=== PATIENT | female | born 1945 | race African-American/Black ===

== ENCOUNTER → 2017-02-15 | Outpatient (CLI) | payer MEDICARE, OTHER ==
--- NOTE | 2017-02-15 09:42 | XR ---
EXAMINATION TYPE: XR chest 2V DATE OF EXAM: 02/15/2017 COMPARISON: 11/29/2014 HISTORY: Shortness of breath TECHNIQUE: Frontal and lateral views of the chest are obtained. FINDINGS: There is no focal air space opacity, pleural effusion, or pneumothorax seen. The cardiac silhouette size is within normal limits. The osseous structures are intact. Mild degenerative hilario es are seen of the thoracic spine as well as an exaggerated kyphosis is noted on the prior examinatio n. IMPRESSION: No acute cardiopulmonary process.
== END ==
LOC: RADXRMAIN 09:08
PROVIDERS: ATTEND Internal Medicine
DX: R06.02 Shortness of breath (principal)
CPT/HCPCS: 71020

== ENCOUNTER → 2017-06-11 | Outpatient (CLI) | payer MEDICARE, OTHER ==
--- NOTE | 2017-06-14 11:45 | MM ---
Reason for exam: screening (asymptomatic). Last mammogram was performed 2 years and 6 months ago. History: Patient is postmenopausal. Physical Findings: A clinical breast exam by your physician is recommended on an annual basis and results should be correlated with mammographic findings. MG 3D Screening Mammo W/Cad Bilateral CC and MLO view(s) were taken. Prior study comparison: November 29, 2014, bilateral MG screening mammo w CAD. October 24, 2012, bilateral digital screening mammo w/CAD. There are scattered fibroglandular densities. No suspicious abnormality. No significant changes when compared with prior studies. ASSESSMENT: Negative, BI-RAD 1 RECOMMENDATION: Routine screening mammogram of both breasts in 1 year.
== END | disposition home or self-care (01) ==
LOC: RADMAMWWP 14:55
PROVIDERS: ATTEND Internal Medicine
DX: Z12.31 Encounter for screening mammogram for malignant neoplasm of breast (principal)
CPT/HCPCS: 77063; 77067

== ENCOUNTER → 2018-03-31 | Outpatient (CLI) | payer MEDICARE, OTHER ==
--- NOTE | 2018-03-31 12:59 | XR ---
EXAMINATION TYPE: XR chest 2V DATE OF EXAM: 03/31/2018 COMPARISON: 02/15/2017 HISTORY: Surveillance. Annual exam. TECHNIQUE: Frontal and lateral views of the chest are obtained. FINDINGS: Right pleural thickening is present as seen on the prior. There is no focal air space opac ity, pleural effusion, or pneumothorax seen. The cardiac silhouette size is within normal limits. The osseous structures are intact. Mild multilevel degenerative changes of thoracic spine is again no kelvin with prominent thoracic kyphosis. IMPRESSION: No acute cardiopulmonary process.
== END ==
LOC: RADXRMAIN 12:19
PROVIDERS: ATTEND Internal Medicine
DX: Z11.1 Encounter for screening for respiratory tuberculosis (principal)
CPT/HCPCS: 71046

== ENCOUNTER 2018-05-20 20:13 | Emergency (ER) | payer MEDICARE, OTHER ==
[2018-05-20] MEDS ORDERED: ASPIRIN 81 MG PO STA (20:37)
[2018-05-20 20:55] VITALS: RESP 18
--- NOTE | 2018-05-20 21:04 | ED ---
General Adult HPI - General Chief complaint: Extremity Problem,Nontraumatic Stated complaint: lt arm pain Time Seen by Provider: 05/20/18 20:23 Source: patient, RN notes reviewed, old records reviewed Mode of arrival: ambulatory Limitations: no limitations - History of Present Illness Initial comments: Patient is a 72-year-old female presents emergency department today with chief complaint of onset of left arm pain and tingling from her mid arm shoulder and neck. Patient reports symptoms started around 2 this afternoon. 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 She has no significant past medical history of heart disease. She denies shortness of breath or chest pain. She initially thought her pain was related to arthritis. She is a nonsmoker. Ports that it feels like a dull ache within the arm. No change with range of motion. - Related Data Home Medications Medication Instructions Recorded Confirmed Esomeprazole Magnesium [NexIUM] 40 mg PO DAILY 02/21/14 05/20/18 HYDROcodone/APAP 10-325MG [[place] 1 tab PO QID PRN 05/20/18 05/20/18 10-325] Allergies Allergy/AdvReac Type Severity Reaction Status Date / Time Penicillins Allergy Intermediate Rash/Hives Verified 05/20/18 20:55 Review of Systems ROS Statement: Those systems with pertinent positive or pertinent negative responses have been documented in the HPI. ROS Other: All systems not noted in ROS Statement are negative. Past Medical History Past Medical History: Asthma, Chest Pain / Angina, Osteoarthritis (OA) Additional Past Medical History / Comment(s): oa L hip, diverticulosis, has "slight leaky heart valve" History of Any Multi-Drug Resistant Organisms: None Reported Past Surgical History: Hysterectomy Additional Past Surgical History / Comment(s): hysterectomy in her 30's. Past Anesthesia/Blood Transfusion Reactions: No Reported Reaction Past Psychological History: Anxiety Smoking Status: Former smoker Past Alcohol Use History: None Reported Past Drug Use History: None Reported - Past Family History Father Family Medical History: Cancer Additional Family Medical History / Comment(s): Father age 72 of colon CA. Mother Family Medical History: No Reported History Additional Family Medical History / Comment(s): Mother in her 70's after hip fx. General Exam - General Exam Comments Initial Comments: Well-appearing -[place] 72-year-old female. Limitations: no limitations General appearance: alert, in no apparent distress Head exam: Present: atraumatic, normocephalic, normal inspection Eye exam: Present: normal appearance, PERRL, EOMI. Absent: scleral icterus, conjunctival injection, periorbital swelling ENT exam: Present: normal exam, mucous membranes moist Neck exam: Present: normal inspection Respiratory exam: Present: normal lung sounds bilaterally. Absent: respiratory distress, wheezes, rales, rhonchi, stridor Cardiovascular Exam: Present: regular rate, normal rhythm, normal heart sounds. Absent: systolic murmur, diastolic murmur, rubs, gallop, clicks GI/Abdominal exam: Present: soft Extremities exam: Present: normal inspection, full ROM, normal capillary refill. Absent: tenderness, pedal edema, joint swelling, calf tenderness Back exam: Present: normal inspection Neurological exam: Present: alert, oriented X3, CN II-XII intact Psychiatric exam: Present: normal affect, normal mood Skin exam: Present: warm, dry, intact, normal color. Absent: rash Course Vital Signs 05/20/18 05/20/18 20:16 20:54 Temperature 98.1 F Pulse Rate 83 67 Respiratory 16 18 Rate Blood Pressure 160/97 143/81 O2 Sat by Pulse 100 100 Oximetry EKG Findings - EKG Comments: EKG Findings:: EKG performed at 2040 shows sinus rhythm with sinus arrhythmia. Ventricular rate of 68 beats per minute. Was 160 ms. QRS duration is 84 ms. QT QTc is 412/438 ms. No evidence of ST elevation or T-wave inversion. Medical Decision Making - Medical Decision Making Patient is a well-appearing 72-year-old [place] female who presents emergency department today with onset of left arm pain around 2 PM. She denies any associated chest pain shortness breath. She does state occasionally goes to the neck. She has normal pulse the arm. Full range of motion noted. No deformities. No trauma to cause pain. The arm. She states she felt like it was initially arthritis. I did discuss concern for cardiac etiology. We did do a cardiac workup. She has a normal EKG. Normal troponin. Chest x-ray was reviewed and negative for any acute process. Lab work was stable. She does report she had a stress test done approximately 2 years ago. At this time Patient was offered admission for further evaluation for cardiac origin of the arm pain. Patient states she feels more comfortable going home. She requests to be discharged. At this time I discussed treatment for a temperature medication if this is muscular skeletal nature. KODY has close follow-up with her primary care physician. I discussed strict return parameters. All questions were answered. - Lab Data Result diagrams: 05/20/18 20:35 05/20/18 20:35 Lab Results 05/20/18 05/20/18 05/20/18 Range/Units 20:35 20:35 20:35 WBC 4.5 (3.8-10.6) k/uL RBC 4.06 (3.80-5.40) m/uL Hgb 11.8 (11.4-16.0) gm/dL Hct 36.3 (34.0-46.0) % MCV 89.4 (80.0-100.0) fL MCH 29.1 (25.0-35.0) pg MCHC 32.5 (31.0-37.0) g/dL RDW 12.8 (11.5-15.5) % Plt Count 266 (150-450) k/uL Neutrophils % 42 % Lymphocytes % 41 % Monocytes % 7 % Eosinophils % 6 % Basophils % 1 % Neutrophils # 1.9 (1.3-7.7) k/uL Lymphocytes # 1.8 (1.0-4.8) k/uL Monocytes # 0.3 (0-1.0) k/uL Eosinophils # 0.3 (0-0.7) k/uL Basophils # 0.0 (0-0.2) k/uL PT (9.0-12.0) sec INR (<1.2) APTT (22.0-30.0) sec Sodium 141 (137-145) mmol/L Potassium 3.8 (3.5-5.1) mmol/L Chloride 108 H (98-107) mmol/L Carbon Dioxide 25 (22-30) mmol/L Anion Gap 8 mmol/L BUN 11 (7-17) mg/dL Creatinine 0.67 (0.52-1.04) mg/dL Est GFR (CKD-EPI)AfAm >90 (>60 ml/min/1.73 sqM) Est GFR (CKD-EPI)NonAf 87 (>60 ml/min/1.73 sqM) Glucose 112 H (74-99) mg/dL Calcium 9.7 (8.4-10.2) mg/dL Magnesium 1.9 (1.6-2.3) mg/dL Total Bilirubin 0.4 (0.2-1.3) mg/dL AST 23 (14-36) U/L ALT 15 (9-52) U/L Alkaline Phosphatase 52 (38-126) U/L Total Creatine Kinase 242 H (30-135) U/L CK-MB (CK-2) 2.7 H (0.0-2.4) ng/mL CK-MB (CK-2) Rel Index 1.1 Troponin I <0.012 (0.000-0.034) ng/mL Total Protein 7.2 (6.3-8.2) g/dL Albumin 3.8 (3.5-5.0) g/dL 05/20/18 Range/Units 20:35 WBC (3.8-10.6) k/uL RBC (3.80-5.40) m/uL Hgb (11.4-16.0) gm/dL Hct (34.0-46.0) % MCV (80.0-100.0) fL MCH (25.0-35.0) pg MCHC (31.0-37.0) g/dL RDW (11.5-15.5) % Plt Count (150-450) k/uL Neutrophils % % Lymphocytes % % Monocytes % % Eosinophils % % Basophils % % Neutrophils # (1.3-7.7) k/uL Lymphocytes # (1.0-4.8) k/uL Monocytes # (0-1.0) k/uL Eosinophils # (0-0.7) k/uL Basophils # (0-0.2) k/uL PT 10.0 (9.0-12.0) sec INR 0.9 (<1.2) APTT 26.7 (22.0-30.0) sec Sodium (137-145) mmol/L Potassium (3.5-5.1) mmol/L Chloride (98-107) mmol/L Carbon Dioxide (22-30) mmol/L Anion Gap mmol/L BUN (7-17) mg/dL Creatinine (0.52-1.04) mg/dL Est GFR (CKD-EPI)AfAm (>60 ml/min/1.73 sqM) Est GFR (CKD-EPI)NonAf (>60 ml/min/1.73 sqM) Glucose (74-99) mg/dL Calcium (8.4-10.2) mg/dL Magnesium (1.6-2.3) mg/dL Total Bilirubin (0.2-1.3) mg/dL AST (14-36) U/L ALT (9-52) U/L Alkaline Phosphatase (38-126) U/L Total Creatine Kinase (30-135) U/L CK-MB (CK-2) (0.0-2.4) ng/mL CK-MB (CK-2) Rel Index Troponin I (0.000-0.034) ng/mL Total Protein (6.3-8.2) g/dL Albumin (3.5-5.0) g/dL - Radiology Data Radiology results: report reviewed No active cardiopulmonary disease. Normal heart. No change compared old exam. Disposition Clinical Impression: Left arm pain Disposition: HOME SELF-CARE Condition: Good Instructions: Arm Pain (ED) Additional Instructions: Patient advised to follow-up with primary care physician. Motrin and Tylenol for pain. Return to emergency department if any alarming signs or symptoms occur. Is patient prescribed a controlled substance at d/c from ED?: No Referrals: Nelson Torres MD [Primary Care Provider] - 1-2 days Time of Disposition: 22:46
--- NOTE | 2018-05-20 21:09 | XR ---
EXAMINATION TYPE: XR chest 2V DATE OF EXAM: 05/20/2018 COMPARISON: 03/31/2018 HISTORY: Left arm pain TECHNIQUE: Frontal and lateral views of the chest are obtained. FINDINGS: Heart is normal. Lungs are clear of consolidation. There is no pleural effusion. Costophre viry angles are clear. Thoracic aorta is atheromatous. There are chest leads. There is osteopenia. The re is some pleural scarring at the lung apices. IMPRESSION: No active cardiopulmonary disease. Normal heart. No change compared to old exam.
[2018-05-20 21:11] LABS: Basophils % (A) 1 %; Eosinophils # (A) 0.3 k/uL (0-0.7); Eosinophils % (A) 6 %; HCT 36.3 % (34.0-46.0); HGB 11.8 gm/dL (11.4-16.0); Lymphocytes # (A) 1.8 k/uL (1.0-4.8); Lymphocytes % (A) 41 %; MCH 29.1 pg (25.0-35.0); MCHC 32.5 g/dL (31.0-37.0); MCV 89.4 fL (80.0-100.0); Mean Platelet Volume 7.2; Monocytes # (A) 0.3 k/uL (0-1.0); Monocytes % (A) 7 %; Neutrophils # (A) 1.9 k/uL (1.3-7.7); Neutrophils % (A) 42 %; Platelet Count 266 k/uL (150-450); RBC 4.06 m/uL (3.80-5.40); RDW 12.8 % (11.5-15.5); WBC 4.5 k/uL (3.8-10.6)
[2018-05-20 21:15] LABS: ALT 15 U/L (9-52); AST 23 U/L (14-36); Albumin 3.8 g/dL (3.5-5.0); Alkaline Phosphatase 52 U/L (38-126); Anion Gap 8 mmol/L; Blood Urea Nitrogen 11 mg/dL (7-17); Calcium 9.7 mg/dL (8.4-10.2); Carbon Dioxide 25 mmol/L (22-30); Chloride 108 mmol/L (98-107); Glucose 112 mg/dL (74-99); Magnesium 1.9 mg/dL (1.6-2.3); Potassium 3.8 mmol/L (3.5-5.1); Sodium 141 mmol/L (137-145); Total Bilirubin 0.4 mg/dL (0.2-1.3); Total Protein 7.2 g/dL (6.3-8.2)
[2018-05-20 21:16] LABS: INR 0.9 (<1.2); Partial Thromboplastin Time 26.7 sec (22.0-30.0)
[2018-05-20 21:18] LABS: Creatine Kinase 242 U/L (30-135)
[2018-05-20 21:31] LABS: Creatine Kinase MB 2.7 ng/mL (0.0-2.4); Troponin I <0.012 ng/mL (0.000-0.034)
[2018-05-20 22:46] VITALS: BP 133/72; PULSE 60; TEMP 97.9
== END 2018-05-20 23:09 | disposition home or self-care (01) ==
LOC: EC 20:13
DX: M79.602 Pain in left arm (principal); R20.2 Paresthesia of skin; Z88.0 Allergy status to penicillin; Z79.899 Other long term (current) drug therapy; Z87.891 Personal history of nicotine dependence
CPT/HCPCS: 36415; 71046; 80053; 82550; 82553; 83735; 84484; 85025; 85610; 85730; 93005; 99284

== ENCOUNTER 2021-02-15 08:46 | Emergency (ER) | payer MEDICARE, OTHER ==
[2021-02-15 08:56] VITALS: BP 125/75; PULSE 68; RESP 16; TEMP 97.8
--- NOTE | 2021-02-15 09:17 | ED ---
Lower Extremity Injury HPI - General Chief Complaint: Extremity Injury, Lower Stated Complaint: ankle injury Time Seen by Provider: 02/15/21 08:57 Source: patient, RN notes reviewed Mode of arrival: wheelchair Limitations: physical limitation - History of Present Illness Initial Comments: 75-year-old female presents emergency Department with chief complaint of left ankle injury. Patient was walking her dog slipped in the grass rolled her ankle. Patient complains of lateral left ankle pain. Patient denies any paresthesias patient states it's very painful diffusely. - Related Data Home Medications Medication Instructions Recorded Confirmed Esomeprazole Magnesium [NexIUM] 40 mg PO DAILY 02/21/14 05/20/18 HYDROcodone/APAP 10-325MG [[place] 1 tab PO QID PRN 05/20/18 05/20/18 10-325] Allergies Allergy/AdvReac Type Severity Reaction Status Date / Time Penicillins Allergy Intermediate Rash/Hives Verified 02/15/21 08:56 Review of Systems ROS Statement: Those systems with pertinent positive or pertinent negative responses have been documented in the HPI. ROS Other: All systems not noted in ROS Statement are negative. Past Medical History Past Medical History: Asthma, Chest Pain / Angina, Osteoarthritis (OA) Additional Past Medical History / Comment(s): oa L hip, diverticulosis, has "slight leaky heart valve" History of Any Multi-Drug Resistant Organisms: None Reported Past Surgical History: Hysterectomy Additional Past Surgical History / Comment(s): hysterectomy in her 30's. Past Anesthesia/Blood Transfusion Reactions: No Reported Reaction Past Psychological History: No Psychological Hx Reported Smoking Status: Never smoker Past Alcohol Use History: None Reported Past Drug Use History: None Reported - Past Family History Father Family Medical History: Cancer Additional Family Medical History / Comment(s): Father age 72 of colon CA. Mother Family Medical History: No Reported History Additional Family Medical History / Comment(s): Mother in her 70's after hip fx. General Exam Limitations: physical limitation General appearance: alert, in no apparent distress Head exam: Present: atraumatic, normocephalic, normal inspection Respiratory exam: Present: normal lung sounds bilaterally. Absent: respiratory distress, wheezes, rales, rhonchi, stridor Cardiovascular Exam: Present: regular rate, normal rhythm, normal heart sounds. Absent: systolic murmur, diastolic murmur, rubs, gallop, clicks Extremities exam: Present: other (Left ankle there is diffuse swelling, tenderness of the medial and lateral malleolus, no foot tenderness no proximal tib-fib tenderness, neurovascular intact) Course Vital Signs 02/15/21 08:53 Temperature 97.8 F Pulse Rate 68 Respiratory 16 Rate Blood Pressure 125/75 O2 Sat by Pulse 99 Oximetry Procedures - Orthopedic Splinting/Casting Injury #1 Side: left Lower Extremity Injury Location: short leg, ankle Lower Extremity Immobilizer: posterior splint, synthetic pre-padded splint Other Orthopedic Equipment: walker Medical Decision Making - Medical Decision Making 75-year-old presented for left ankle injury. Patient has bimalleolar fracture patient was splinted and will follow-up with orthopedics. Disposition Clinical Impression: Closed bimalleolar fracture of left ankle Disposition: HOME SELF-CARE Condition: Stable Instructions (If sedation given, give patient instructions): Ankle Fracture (ED) Additional Instructions: Please return to the Emergency Department if symptoms worsen or any other concerns. Is patient prescribed a controlled substance at d/c from ED?: No Referrals: Nelson Torres MD [Primary Care Provider] - 1-2 days Raymond Mayers MD [Medical Doctor] - 1-2 days Time of Disposition: 09:40
--- NOTE | 2021-02-15 09:30 | XR ---
EXAMINATION TYPE: XR ankle complete LT DATE OF EXAM: 02/15/2021 CLINICAL HISTORY: Pain after falling injury TECHNIQUE: Frontal, lateral and oblique images of the left ankle are obtained. COMPARISON: None. FINDINGS: There is acute displaced oblique intra-articular through the lateral malleolus. There is ad ditional acute slightly displaced transverse component distal to this. There is acute slightly displa aaron intra-articular fracture through the medial malleolus. Ankle mortise symmetry fairly well preserv ed. Moderate associated soft tissue swelling. IMPRESSION: Acute bimalleolar fractures with associated soft tissue swelling.
[2021-02-15] MEDS ORDERED: MORPHINE SULFATE 4 MG/ML SYRINGE IM STA (09:37)
[2021-02-15] MEDS ORDERED: ACET/COD 300 MG/30 MG STARTER PACK 6 TAB BTL PO STA (09:43)
== END 2021-02-15 10:13 | disposition home or self-care (01) ==
LOC: EC 08:46
DX: S82.842A Displaced bimalleolar fracture of left lower leg, initial encounter for closed fracture (principal); J45.909 Unspecified asthma, uncomplicated; Z79.899 Other long term (current) drug therapy; Z88.0 Allergy status to penicillin; X50.1XXA Overexertion from prolonged static or awkward postures, initial encounter; Y93.K1 Activity, walking an animal
CPT/HCPCS: 73610; 29515; 99283; 96372; J2270

== ENCOUNTER 2021-02-19 08:48 | Day surgery (SDC) | payer MEDICARE, OTHER ==
[2021-02-17 15:14] VITALS: BMI 20.3
[~2021-02-19 08:48] MED LIST: LACTATED RINGERS 1,000 ML IV SCH; LIDOCAINE 1% (10MG/ML) FOR IV START INTRADERMA PRN; ONDANSETRON 4 MG/2 ML VIAL IVP ONE; ceFAZolin 1,000 MG in SODIUM CHLORIDE 0.9% IRRIGATIO 1,000 ML IRRIGATION PRN; fentaNYL (PF) 50 MCG/ML 2 ML AMP IV PRN
[2021-02-19 09:46] LABS: Basophils % (A) 0 %; Eosinophils # (A) 0.1 k/uL (0-0.7); Eosinophils % (A) 1 %; HCT 35.6 % (34.0-46.0); Lymphocytes % (A) 19 %; MCHC 33.6 g/dL (31.0-37.0); MCV 92.4 fL (80.0-100.0); Mean Platelet Volume 7.7; Monocytes # (A) 0.5 k/uL (0-1.0); Monocytes % (A) 8 %; Neutrophils # (A) 3.9 k/uL (1.3-7.7); Neutrophils % (A) 71 %; Platelet Count 259 k/uL (150-450); RBC 3.86 m/uL (3.80-5.40); RDW 12.6 % (11.5-15.5); WBC 5.6 k/uL (3.8-10.6)
[2021-02-19] MEDS ORDERED: PHENYLEPHRINE-0.9% NACL SYG 1,000 MCG/10 ML SYRINGE ONE (10:20)
[2021-02-19] MEDS ORDERED: PROPOFOL 10 MG/ML 20 ML VIAL IV ONE (10:20)
[2021-02-19] MEDS ORDERED: HYDROmorphone (PF) 1 MG/ML ONE (10:20)
[2021-02-19] MEDS ORDERED: ePHEDrine SULFATE/0.9% NACL/PF 50 MG/5 ML SYRINGE IV ONE (10:20)
[2021-02-19] MEDS ORDERED: SUCCINYLCHOLINE CHLORIDE 100 MG/5 ML SYR IV ONE (10:20)
[2021-02-19] MEDS ORDERED: LIDOCAINE 1% INJ 10MG/ML (20 ML MDV) ONE (10:20)
[2021-02-19] MEDS ORDERED: fentaNYL (PF) 50 MCG/ML 2 ML AMP ONE (10:20)
[2021-02-19] MEDS ORDERED: LACTATED RINGERS 1,000 ML IV ONE ×2 (10:24→10:59)
--- NOTE | 2021-02-19 11:52 | XR ---
Fluoroscopy INDICATION: Pain FINDINGS: Fluoroscopy time: 4 seconds. Images obtained: 5. IMPRESSIONS: 1. Documentation of fluoroscopy.
--- NOTE | 2021-02-19 11:53 | FL ---
Fluoroscopy INDICATION: Pain FINDINGS: Fluoroscopy time: 29 seconds. Images obtained: 0. IMPRESSIONS: 1. Documentation of fluoroscopy.
[2021-02-19] MEDS ORDERED: ONDANSETRON 4 MG/2 ML VIAL IVP PRN (11:54)
[2021-02-19] MEDS ORDERED: HYDROmorphone 0.5 MG/0.5 ML SYRINGE IVP PRN (11:54)
[2021-02-19] MEDS ORDERED: BENZOCAINE/MENTHOL LOZENG 1 EACH LOZENGE MUCOUS MEM PRN (11:54)
[2021-02-19] MEDS ORDERED: HYDROcodone/APAP 5-325MG 1 EACH TAB PO PRN ×2 (11:54)
[2021-02-19 11:57] VITALS: TEMP 97.6
[2021-02-19] MEDS ORDERED: SODIUM CHLORIDE 0.9% 1,000 ML IV SCH (12:00)
--- NOTE | 2021-02-19 12:11 | P.OP ---
Date of Procedure: 02/19/21 Preoperative Diagnosis: Left ankle bimalleolar fracture with displacement, acute traumatic Postoperative Diagnosis: Same Anesthesia: GETA, regional Pathology: none sent Condition: stable Disposition: PACU Description of Procedure: BRIEF OPERATIVE NOTE Preoperative Diagnosis: Bimalleolar left ankle fracture with displacement, acute traumatic Postoperative Diagnosis: Same Procedure: Open reduction internal fixation of left distal fibula fracture and medial malleolus fracture Use of fluoroscopic guidance Surgeon: Dr. Clemons Pig Sticker: Elbert Aguilar is present throughout the entire the case persistence during positioning, dissection, exposure, visualization, and all crucial elements of the case as well as closure. Anesthesia: General anesthesia Estimated blood loss: Less than 10 mL Tourniquet time: Approximately 40 minutes Specimen: None Complications: None apparent Components implanted: Synthes small frag one third semitubular locking plate with a combination of locking and nonlocking screws and with 4.0 cannulated screws at the medial malleolus Disposition: To recovery room in good stable condition. OPERATIVE INDICATIONS The patient had an acute injury a few days ago when she slipped and rolled her ankle and fell to the ground. She had immediate pain and swelling in her left ankle with some deformity. She had not had any pain or issues prior to her fall. She was evaluated and found have a comminuted distal fibula fracture with accompanying medial sided pain in the medial malleolus fracture with some displacement. With the displacement and the bimalleolar fracture we felt that the best chance for her to achieve optimal outcome would be to pursue surgical intervention for rigid fixation. We felt that this would give her the best option. For appropriate alignment and position healing and later function. I discussed the risk of occasions alternatives and benefits of surgery in relation to her injury. I discussed the risk of bleeding risk and infection risk and need for further surgery risk of decreased loss of motion loss function malunion nonunion hardware failure nerve damage as well as, occasions with surgery were explained. I answered her questions best my ability and she elected proceed with surgical intervention. OPERATIVE SUMMARY After discussing all the risks, patient alternatives and benefits at length, the patient elected to proceed with surgical intervention, signed informed consent, and presented for their procedure. The patient was seen and examined in the preoperative holding area and the surgical site was marked. The patient was given antibiotics and brought to the operating room. The patient was sedated and intubated by anesthesia in standard fashion. The patient was positioned on to the operating room table in a supine position with a pad under her right hip. We were careful to pad any bony prominences and pressure points. We were careful to maintain the patient's cervical spine and good neutral alignment and position throughout. We used C-arm machines to establish union fluoroscopic guidance in AP and lateral positions. We were able to localize the fractures appropriately at the left ankle. The patient was prepped and draped in a normal standard fashion. An appropriate timeout and keystone protocol performed. We were able to proceed with the surgery. The local wound area was infiltrated with local anesthetic. An incision was made over the lateral aspect of the ankle and I dissected down to the distal fibula appropriately. The fracture was obvious and I was able to mobilize some of the fragments and elevated some of the periosteum leaving as much is intact as possible. I performed a gentle reduction techniques in order to get the fractures well aligned and use of bone clamp to get good provisional fixation. I was able to get good near-anatomic position. This was confirmed with C-arm guidance. I was then able to measure and position a one third semitubular 6-hole locking hole plate and contoured appropriately over the distal fibula and over the fracture site proximally and distally. There was comminution at the distal fibula and the fracture was quite low and horizontal. I was not able to place in interfragmentary screw. I was able to use a clamp to establish some fixation at the comminuted fragments at the distal fibula. We were able to have the bone clamp in place the plate laterally and placed cortical screws proximally and cancellous screws distally to get excellent fixation at a near anatomic position. This was confirmed with C-arm guidance. I sutured some of the small fragments back to the main fragmentation as well. This gave good added fixation. With this intact I was able to turn my attention to the medial malleolus. A small curvilinear incision was made over the distal aspect of the medial malleolus and I dissected down to the tip the medial malleolus. I was able get excellent reduction and then placed guide pins 2 distal to proximal across fracture site being careful to avoid the joint space itself. I measured for appropriate screw length and then overdrilled the wires to place cannulated 4.0 screws 2 in good alignment good position with good bony fixation. As able to remove the guidewires and showed good stability. I performed medial and lateral varus and valgus stress at the ankle after fixation was performed and there is no evidence of any widening or displacement of the syndesmosis or the ankle mortise. I do not feel we needed any further fixation. We were able to proceed with closure. The wound was copiously irrigated and suctioned dry as had been done periodically throughout the case. Deep layers were closed with 2-0 Vicryl subcu tissues closed 2-0 Vicryl and skin was closed with 4-0 nylon. The wound was cleaned and dried and dressed with the appropriate dressing. I placed a sugar tong and posterior mold well-padded well molded splint at the right lower leg. The drapes were broken down. The patient was gently rolled back onto their hospital bed being careful to maintain their cervical spine and good neutral alignment and position. They were woken up by anesthesia, extubated, and brought to the recovery room in good stable condition. The patient will be able to be discharged from the hospital after appropriate observation due to and for appropriate postoperative care, medical management and monitoring. We will continue to follow them closely about the postoperative course. a plan see her back in the office in approximately 1 week's time or sooner if she is having problems.
--- NOTE | 2021-02-19 14:43 | P.ANPRN ---
Procedure Note - Anesthesia - Nerve Block Performed Left Adductor Canal Time Out Performed: Yes (09:50) Date of Procedure: 02/19/21 Procedure Start Time: 50 Procedure Stop Time: 10:02 Location of Patient: PreOp Indication: Acute Post-Operative Pain, Requested by Surgeon (Dr Clemons) Sedation Type: Sedate with meaningful contact maintained Preparation: Sterile Prep Position: Supine Catheter: None Needle Types: Pajunk Needle Gauge: 21 Ultrasound used to visualize needle placement: Yes Ultrasound used to observe medication spread: Yes Injectate: 0.5% Ropivacaine (see comment for volume) (15cc + 5cc PFNormal saline) Blood Aspirated: No Pain Paresthesia on Injection Noted: No Resistance on Injection: Normal Image Stored and Saved: Yes Events: Uneventful and Well Tolerated
--- NOTE | 2021-02-19 14:45 | P.ANPRN ---
Procedure Note - Anesthesia - Nerve Block Performed Left Popliteal Time Out Performed: Yes Date of Procedure: 02/19/21 Procedure Start Time: 10:03 Procedure Stop Time: 10:16 Location of Patient: PreOp Indication: Acute Post-Operative Pain, Requested by Surgeon (Dr Clemons) Sedation Type: Sedate with meaningful contact maintained Preparation: Sterile Prep Position: Right Lateral Catheter: None Needle Types: Pajunk Needle Gauge: 21 Ultrasound used to visualize needle placement: Yes Ultrasound used to observe medication spread: Yes Injectate: 0.5% Ropivacaine (see comment for volume) (15cc + 5cc PFNormal saline) Blood Aspirated: No Pain Paresthesia on Injection Noted: No Resistance on Injection: Normal Image Stored and Saved: Yes Events: Uneventful and Well Tolerated
[2021-02-19 15:26] VITALS: BP 128/71; PULSE 92; RESP 16
== END 2021-02-19 15:42 | disposition home or self-care (01) ==
LOC: OR 08:48
PROVIDERS: ATTEND Orthopaedic Surgery Orthopaedic Surgery of the Spine
DX: S82.842D Displaced bimalleolar fracture of left lower leg, subsequent encounter for closed fracture with routine healing (principal); X50.1XXD Overexertion from prolonged static or awkward postures, subsequent encounter; Z88.0 Allergy status to penicillin; Z88.5 Allergy status to narcotic agent; Z79.899 Other long term (current) drug therapy
CPT/HCPCS: 27814; 27766; 64447; 64445; 76942; 85025; 73600; C1713 ×2; J0690; J2405; J2001; J3010; J1170; J2370; J0330; J2704

== ENCOUNTER → 2021-06-04 | Outpatient (CLI) | payer MEDICARE, OTHER ==
--- NOTE | 2021-06-04 13:49 | XR ---
EXAMINATION TYPE: XR shoulder complete RT DATE OF EXAM: 06/04/2021 CLINICAL HISTORY: pain TECHNIQUE: Three views of the right shoulder are obtained. COMPARISON: None FINDINGS: There is no acute fracture/dislocation evident. The acromioclavicular and glenohumeral arielle int spaces appear within normal limits. The visualized ribs are intact and unremarkable. IMPRESSION: 1. There is no acute fracture or dislocation. ICD 10 NO FRACTURE, INITIAL EVALUATION
== END | disposition home or self-care (01) ==
LOC: RADXRMAIN 13:26
PROVIDERS: ATTEND Internal Medicine
DX: M25.511 Pain in right shoulder (principal)

== ENCOUNTER → 2021-10-15 | Outpatient (CLI) | payer MEDICARE, OTHER ==
--- NOTE | 2021-10-16 07:15 | MR ---
EXAMINATION TYPE: MR brain wo/w con DATE OF EXAM: 10/15/2021 COMPARISON: NONE HISTORY: Impaired balance. TECHNIQUE: Multiplanar, multisequence images of the brain and brainstem is performed without and with IV contras t, utilizing 6 mL intravenous Gadavist . FINDINGS: Diffusion weighted images demonstrate no evidence of a recent infarct or other diffusion ab normality. The ventricular system and cisternal spaces are normal in size and appearance. The brain volume is age appropriate. Scattered small foci of T2 hyperintensity are seen throughout the white ma tter bilaterally. Approximately 20-30 small scattered lesions are seen. Lesions are nonspecific in ap pearance and distribution. Midline structures demonstrate normal morphology. Some narrowing at the level of foramen magnum is fe lt present particularly anterior CSF space. Slight inferior extension of cerebellar tonsils to level of foramen magnum, no greater than 5 mm inferior displacement to suggest Chiari type I malformation. Post contrast images demonstrate no enhancing masses. Symmetric linear dural enhancement is present, nonspecific finding. The dural venous sinuses appear patent. The visualized sinuses are clear and th e globes are intact. No abnormal fluid signal at the level of mastoid air cells. IMPRESSION: 1. [id number] nonspecific white matter changes most likely on basis of product of chronic small vessel schema change in patient of this age. 2. Narrowing at level of foramen magnum. Low lying cerebellar ectopia. No definitive Chiari type I ma lformation.
== END | disposition home or self-care (01) ==
LOC: RADMRIMAIN 16:21
PROVIDERS: ATTEND Internal Medicine
DX: R90.82 White matter disease, unspecified (principal); G93.5 Compression of brain
CPT/HCPCS: 70553; A9585

== ENCOUNTER 2021-12-26 20:00 | Emergency (ER) | payer MEDICARE, OTHER ==
--- NOTE | 2021-12-26 20:59 | XR ---
EXAMINATION TYPE: XR ankle complete LT DATE OF EXAM: 12/26/2021 COMPARISON: 02/15/2021 HISTORY: Ankle pain TECHNIQUE: 3 views FINDINGS: There is soft tissue swelling around the ankle. There is plate with screws fixing the dista l fibula. There are 2 screws fixing the medial malleolus. Ankle mortise is anatomic. Fracture seen. T here is plantar and Achilles calcaneal spurring. IMPRESSION: Soft tissue swelling. No fracture seen. Old bimalleolar fracture.
--- NOTE | 2021-12-26 21:41 | US ---
EXAMINATION TYPE: US venous doppler duplex LE LT DATE OF EXAM: 12/26/2021 9:17 PM COMPARISON: NONE CLINICAL HISTORY: Left lower extremity edema. left ankle pain. history of broken ankle 02/25. left romario t edema SIDE PERFORMED: left TECHNIQUE: The lower extremity deep venous system is examined utilizing real time linear array sonog gareth with graded compression, doppler sonography and color-flow sonography. VESSELS IMAGED: Common Femoral Vein Deep Femoral Vein Greater Saphenous Vein * Femoral Vein Popliteal Vein Small Saphenous Vein * Proximal Calf Veins (* superficial vessels) Left Leg: no evidence of DVT IMPRESSION: No evidence of deep vein thrombosis in the left leg.
--- NOTE | 2021-12-26 22:33 | ED ---
General Adult HPI - General Chief complaint: Extremity Problem,Nontraumatic Stated complaint: L ankle pain Time Seen by Provider: 12/26/21 20:16 Source: patient, RN notes reviewed Mode of arrival: ambulatory - History of Present Illness Initial comments: 76-year-old female presents to the emergency department for evaluation of left lower extremity swelling 2 days. Reports minimal discomfort. Has been on her feet and active more than ususal. Patient states she had a previous ankle fracture nearly a year ago but has had no ongoing issues since. Denies any injury, trauma, prolonged mobilization, or long recent car rides. Denies fever, chills, chest pain, shortness of breath, abdominal pain, nausea, vomiting, diarrhea, or dysuria. - Related Data Home Medications Medication Instructions Recorded Confirmed Pravastatin (Unknown Dose) 1 tab PO HS 02/17/21 02/19/21 traMADol HCL 50 mg PO TID PRN 02/17/21 02/19/21 HYDROcodone/APAP 5-325MG [[place] 5] 1 tab PO Q4-6H PRN 02/19/21 02/19/21 Previous Rx's Medication Instructions Recorded HYDROcodone/APAP 5-325MG [[place] 5] 1 each PO Q6HR PRN #12 tab 02/19/21 Ibuprofen [Motrin] 600 mg PO Q8HR PRN #20 tab 12/26/21 Allergies Allergy/AdvReac Type Severity Reaction Status Date / Time Penicillins Allergy Intermediate Rash/Hives Verified 12/26/21 20:11 morphine AdvReac Nausea & Verified 12/26/21 20:11 Vomiting Review of Systems ROS Statement: Those systems with pertinent positive or pertinent negative responses have been documented in the HPI. ROS Other: All systems not noted in ROS Statement are negative. Past Medical History Past Medical History: Asthma, Chest Pain / Angina, GERD/Reflux, Hyperlipidemia, Osteoarthritis (OA) Additional Past Medical History / Comment(s): Diverticulosis, Varicose Veins. History of Any Multi-Drug Resistant Organisms: None Reported Past Surgical History: Hysterectomy Additional Past Surgical History / Comment(s): hysterectomy in her 30's. Past Anesthesia/Blood Transfusion Reactions: No Reported Reaction Past Psychological History: No Psychological Hx Reported Smoking Status: Former smoker Past Alcohol Use History: None Reported Past Drug Use History: None Reported - Past Family History Father Family Medical History: Cancer Additional Family Medical History / Comment(s): Father age 72 of colon CA. Mother Family Medical History: No Reported History Additional Family Medical History / Comment(s): Mother in her 70's after hip fx. Sister(s) Family Medical History: Cancer General Exam Limitations: no limitations (Well-developed, well-nourished female in no acute distress. Initial temperature 90.2, pulse 81, respirations 18, blood pressure 146/80, pulse ox 98% on room air.) General appearance: alert, in no apparent distress ENT exam: Present: normal exam, normal oropharynx, mucous membranes moist Respiratory exam: Present: normal lung sounds bilaterally. Absent: respiratory distress, wheezes, rales, rhonchi, stridor Cardiovascular Exam: Present: regular rate, normal rhythm, normal heart sounds. Absent: systolic murmur, diastolic murmur, rubs, gallop, clicks GI/Abdominal exam: Present: soft, normal bowel sounds. Absent: distended, tenderness, guarding, rebound, rigid Left Upper Leg exam: Present: normal inspection, full ROM. Absent: tenderness, swelling Knee exam: Present: normal inspection, full ROM. Absent: tenderness, swelling Lower Leg exam: Present: normal inspection, full ROM. Absent: tenderness, swelling Ankle exam: Present: full ROM, swelling (mild non-pitting diffuse ankle edema). Absent: tenderness, deformity, erythema Foot/Toe exam: Present: full ROM, swelling (extends to dorsal surface of mid- foot). Absent: tenderness, ecchymosis, erythema Neurovascular tendon exam: Present: no vascular compromise. Absent: motor deficit, sensory deficit, tendon deficit Gait: observed and normal Neurological exam: Present: alert, oriented X3, CN II-XII intact Psychiatric exam: Present: normal affect, normal mood Skin exam: Present: warm, dry, intact, normal color. Absent: rash Course Vital Signs 12/26/21 12/26/21 20:09 22:34 Temperature 98.2 F 98.5 F Pulse Rate 81 77 Respiratory 19 16 Rate Blood Pressure 146/80 128/84 O2 Sat by Pulse 98 98 Oximetry Medical Decision Making - Medical Decision Making This is a 68-year-old female with a past medical history of asthma, angina., And osteoarthritis who presents to the emergency department for evaluation of left ankle swelling 2 days. Upon exam, patient is well-appearing and in no acute distress. She is able to ambulate without difficulty and has no tenderness. Ankle is nontender and atraumatic. X-ray was obtained and shows soft tissue swelling with no other acute findings. Venous Doppler study is negative for DVT. Alfonso wrap was applied for compression. Patient is encouraged to elevate extremity while at rest. Prescribed Motrin if needed for discomfort. She is scheduled to follow up with her orthopedist this week. Return parameters discussed in detail. Patient verbalizes understanding and agrees with this plan. Attending: Raji. - Radiology Data Radiology results: report reviewed, image reviewed Venous Doppler study of the left lower extremity was obtained. Report was reviewed in its entirety. Impression per Dr. Gabriel is no evidence of deep vein thrombosis in the left leg. X-ray of the left ankle was obtained. Report was reviewed in its entirety. Impression per Dr. Gabriel is soft tissue swelling. No fracture seen. Old bimalleolar fracture. Disposition Clinical Impression: Edema of soft tissue of left ankle region Disposition: HOME SELF-CARE Condition: Stable Instructions (If sedation given, give patient instructions): Swollen Ankle Joint (ED) Additional Instructions: Rest as needed. Keep leg elevated while at rest. Alfonso wrap for compression. May take Motrin or Tylenol if needed for discomfort. Call your orthopedist Wednesday morning to move your Wednesday appointment sooner. return to the emergency department with any new, worsening, or concerning symptoms. Prescriptions: Ibuprofen [Motrin] 600 mg PO Q8HR PRN #20 tab PRN Reason: Pain Is patient prescribed a controlled substance at d/c from ED?: No Referrals: Nelson Torres MD [Primary Care Provider] - 1-2 days [facility] [Provider Group] - 1-2 days Time of Disposition: 22:33
[2021-12-26 22:35] VITALS: BP 128/84; PULSE 77; RESP 16; TEMP 98.5
== END 2021-12-26 22:45 | disposition home or self-care (01) ==
LOC: EC 20:00
DX: R60.0 Localized edema (principal); J45.909 Unspecified asthma, uncomplicated; E78.5 Hyperlipidemia, unspecified; Z87.891 Personal history of nicotine dependence; Z88.5 Allergy status to narcotic agent; Z88.0 Allergy status to penicillin
CPT/HCPCS: 99284

== ENCOUNTER 2021-12-28 08:19 | Emergency (ER) | payer MEDICARE, OTHER ==
--- NOTE | 2021-12-28 08:48 | ED ---
General Adult HPI - General Chief complaint: Skin/Abscess/Foreign Body Stated complaint: left ankle pain-revisit Time Seen by Provider: 12/28/21 08:32 Source: patient, RN notes reviewed Mode of arrival: ambulatory Limitations: no limitations - History of Present Illness Initial comments: 76-year-old female presents emergency Department chief complaint left ankle pain, infection. Patient states started having soreness 3 days ago was seen in emergency department an ultrasound her leg which was negative, x-ray of the ankle showed soft tissue swelling. Patient states she now formed an abscess on her ankle. Patient states she had surgery in February of last year by Dr. Clemons for bimalleolar fracture. Patient states that she has minimal discomfort with range of motion patient denies any fevers chills she does admit that some ongoing up her leg - Related Data Home Medications Medication Instructions Recorded Confirmed Pravastatin (Unknown Dose) 1 tab PO HS 02/17/21 02/19/21 traMADol HCL 50 mg PO TID PRN 02/17/21 02/19/21 HYDROcodone/APAP 5-325MG [[place] 5] 1 tab PO Q4-6H PRN 02/19/21 02/19/21 Previous Rx's Medication Instructions Recorded HYDROcodone/APAP 5-325MG [[place] 5] 1 each PO Q6HR PRN #12 tab 02/19/21 Ibuprofen [Motrin] 600 mg PO Q8HR PRN #20 tab 12/26/21 Cephalexin [Keflex] 500 mg PO Q6HR #40 cap 12/28/21 Allergies Allergy/AdvReac Type Severity Reaction Status Date / Time Penicillins Allergy Intermediate Rash/Hives Verified 12/28/21 08:31 morphine AdvReac Nausea & Verified 12/28/21 08:31 Vomiting Review of Systems ROS Statement: Those systems with pertinent positive or pertinent negative responses have been documented in the HPI. ROS Other: All systems not noted in ROS Statement are negative. Past Medical History Past Medical History: Asthma, Chest Pain / Angina, GERD/Reflux, Hyperlipidemia, Osteoarthritis (OA) Additional Past Medical History / Comment(s): Diverticulosis, Varicose Veins. History of Any Multi-Drug Resistant Organisms: None Reported Past Surgical History: Hysterectomy Additional Past Surgical History / Comment(s): hysterectomy in her 30's. Past Anesthesia/Blood Transfusion Reactions: No Reported Reaction Past Psychological History: No Psychological Hx Reported Smoking Status: Former smoker Past Alcohol Use History: None Reported Past Drug Use History: None Reported - Past Family History Father Family Medical History: Cancer Additional Family Medical History / Comment(s): Father age 72 of colon CA. Mother Family Medical History: No Reported History Additional Family Medical History / Comment(s): Mother in her 70's after hip fx. Sister(s) Family Medical History: Cancer General Exam Limitations: no limitations General appearance: alert, in no apparent distress Head exam: Present: atraumatic, normocephalic, normal inspection Respiratory exam: Present: normal lung sounds bilaterally. Absent: respiratory distress, wheezes, rales, rhonchi, stridor Cardiovascular Exam: Present: regular rate, normal rhythm, normal heart sounds. Absent: systolic murmur, diastolic murmur, rubs, gallop, clicks Extremities exam: Present: other (There is diffuse swelling, erythema and increased warmth over the left ankle including the just proximal to the ankle, pulses are palpable, there is noted surgical scars and fluctuant abscess over the lateral portion) Skin exam: Present: warm, dry, intact, normal color. Absent: rash Course Vital Signs 12/28/21 08:29 Temperature 98 F Pulse Rate 77 Respiratory 16 Rate Blood Pressure 126/78 O2 Sat by Pulse 99 Oximetry Medical Decision Making - Medical Decision Making 76-year-old female presented for infection a left ankle. Patient does not have significant discomfort with range of motion, labs were drawn reveals no significant leukocytosis, minimally elevated CRP, negative at [facility] x-ray shows no acute changes. I did discuss case with on-call orthopedic surgeon Dr. Drake recommends patient be placed on Keflex she'll be seen in office tomorrow for recheck and further evaluation. - Lab Data Result diagrams: 12/28/21 08:55 12/28/21 08:55 Lab Results 12/28/21 12/28/21 12/28/21 Range/Units 08:55 08:55 08:55 WBC 6.4 (3.8-10.6) k/uL RBC 3.72 L (3.80-5.40) m/uL Hgb 11.7 (11.4-16.0) gm/dL Hct 35.5 (34.0-46.0) % MCV 95.6 (80.0-100.0) fL MCH 31.5 (25.0-35.0) pg MCHC 33.0 (31.0-37.0) g/dL RDW 12.6 (11.5-15.5) % Plt Count 295 (150-450) k/uL MPV 7.7 Neutrophils % 73 % Lymphocytes % 15 % Monocytes % 7 % Eosinophils % 3 % Basophils % 0 % Neutrophils # 4.7 (1.3-7.7) k/uL Lymphocytes # 1.0 (1.0-4.8) k/uL Monocytes # 0.4 (0-1.0) k/uL Eosinophils # 0.2 (0-0.7) k/uL Basophils # 0.0 (0-0.2) k/uL Sodium 139 (137-145) mmol/L Potassium 4.2 (3.5-5.1) mmol/L Chloride 106 (98-107) mmol/L Carbon Dioxide 28 (22-30) mmol/L Anion Gap 5 mmol/L BUN 10 (7-17) mg/dL Creatinine 0.63 (0.52-1.04) mg/dL Est GFR (CKD-EPI)AfAm >90 (>60 ml/min/1.73 sqM) Est GFR (CKD-EPI)NonAf 86 (>60 ml/min/1.73 sqM) Glucose 95 (74-99) mg/dL Plasma Lactic Acid Mark Anthony 1.2 (0.7-2.0) mmol/L Calcium 9.1 (8.4-10.2) mg/dL Total Bilirubin 0.9 (0.2-1.3) mg/dL AST 22 (14-36) U/L ALT 10 (4-34) U/L Alkaline Phosphatase 63 (38-126) U/L C-Reactive Protein 3.4 H (<1.0) mg/dL Total Protein 7.0 (6.3-8.2) g/dL Albumin 3.8 (3.5-5.0) g/dL Disposition Clinical Impression: Cellulitis of left ankle Disposition: HOME SELF-CARE Condition: Stable Instructions (If sedation given, give patient instructions): Abscess (ED) Additional Instructions: Please call first thing tomorrow morning for [facility] appointment [facility]. Please return to the Emergency Department if symptoms worsen or any other concerns. Prescriptions: Cephalexin [Keflex] 500 mg PO Q6HR #40 cap Is patient prescribed a controlled substance at d/c from ED?: No Referrals: Nelson Torres MD [Primary Care Provider] - 1-2 days Genna Clemons DO [Doctor of Osteopathic Medicine] - 1-2 days Time of Disposition: 10:02
[2021-12-28 09:06] LABS: Basophils % (A) 0 %; Eosinophils # (A) 0.2 k/uL (0-0.7); Eosinophils % (A) 3 %; HCT 35.5 % (34.0-46.0); HGB 11.7 gm/dL (11.4-16.0); Lymphocytes % (A) 15 %; MCH 31.5 pg (25.0-35.0); MCV 95.6 fL (80.0-100.0); Mean Platelet Volume 7.7; Monocytes # (A) 0.4 k/uL (0-1.0); Monocytes % (A) 7 %; Neutrophils # (A) 4.7 k/uL (1.3-7.7); Neutrophils % (A) 73 %; Platelet Count 295 k/uL (150-450); RBC 3.72 m/uL (3.80-5.40); RDW 12.6 % (11.5-15.5); WBC 6.4 k/uL (3.8-10.6)
--- NOTE | 2021-12-28 09:09 | XR ---
EXAMINATION TYPE: XR ankle complete LT DATE OF EXAM: 12/28/2021 9:01 AM INDICATION: Patient age:Female; 76 years old; Reason for study: pain, infection; COMPARISON: None TECHNIQUE: The left ankle is imaged in AP, oblique, and lateral projections. FINDINGS: Unchanged soft tissue swelling around the ankle. Redemonstration of plate with screws fixing the dist al fibula and 2 screws fixing the medial malleolus. Ankle mortise is anatomic. No acute fracture demo nstrated. Plantar and Achilles spurring noted. No subcutaneous gas identified. IMPRESSION: * Similar soft tissue swelling of the ankle from prior exam. No subcutaneous gas. * No acute fracture. * Remote bimalleolar fracture status post fixation.
[2021-12-28 09:30] LABS: ALT 10 U/L (4-34); AST 22 U/L (14-36); African American GFR (CKD) >90 (>60 ml/min/1.73 sqM); Albumin 3.8 g/dL (3.5-5.0); Alkaline Phosphatase 63 U/L (38-126); Anion Gap 5 mmol/L; Blood Urea Nitrogen 10 mg/dL (7-17); C Reactive Protein 3.4 mg/dL (<1.0); Calcium 9.1 mg/dL (8.4-10.2); Carbon Dioxide 28 mmol/L (22-30); Chloride 106 mmol/L (98-107); Glucose 95 mg/dL (74-99); Non-African American GFR(CKD) 86 (>60 ml/min/1.73 sqM); Potassium 4.2 mmol/L (3.5-5.1); Sodium 139 mmol/L (137-145); Total Bilirubin 0.9 mg/dL (0.2-1.3)
[2021-12-28] MEDS ORDERED: cefTRIAXone IN SWFI 1,000 MG/10 ML SYRINGE IVP STA (10:01)
[2021-12-28 10:34] VITALS: BP 130/60; PULSE 68; RESP 18; TEMP 98.1
[2021-12-28 10:44] LABS: Erythrocyte Sedimentation Rate 58 mm/hr (0-20)
== END 2021-12-28 10:30 | disposition home or self-care (01) ==
LOC: EC 08:19
DX: L03.116 Cellulitis of left lower limb (principal); J45.909 Unspecified asthma, uncomplicated; E78.5 Hyperlipidemia, unspecified; Z87.891 Personal history of nicotine dependence; M19.90 Unspecified osteoarthritis, unspecified site; Z88.5 Allergy status to narcotic agent; Z88.0 Allergy status to penicillin; Z79.899 Other long term (current) drug therapy
CPT/HCPCS: 36415; 80053; 85652; 83605; 85025; 86140; 73610; 99283; 96374; J0696

== ENCOUNTER → 2022-01-05 | Outpatient (CLI) | payer MEDICARE, OTHER ==
[2022-01-05 22:45] LABS: HCT 35.7 % (37.2-46.3); HGB 10.7 g/dL (12.0-15.0); MCV 96.7 fL (80.0-97.0); Mean Platelet Volume 9.5 fL (9.5-12.2); NRBC Per 100 WBC 0 /100 WBCS (0.0-0.0); Platelet Count 437 X 10*3/uL (140-440); RBC 3.69 X 10*6/uL (4.10-5.20); RDW 12.5 % (11.5-14.5); WBC 5.29 X 10*3/uL (4.50-10.00)
[2022-01-05 23:41] LABS: Anion Gap 6.1 mmol/L (10.00-18.00); BUN/Creat Ratio 13.44 Ratio (12.00-20.00); Blood Urea Nitrogen 12.1 mg/dL (9.0-27.0); Calcium 9.3 mg/dL (8.7-10.3); Carbon Dioxide 27.9 mmol/L (20.0-27.5); Non-African American GFR(CKD) 61.2 (60.0-200.0); Potassium 4.2 mmol/L (3.5-5.5)
== END | disposition home or self-care (01) ==
LOC: LABPAT 16:11
PROVIDERS: ATTEND Orthopaedic Surgery Orthopaedic Surgery of the Spine
DX: Z01.812 Encounter for preprocedural laboratory examination (principal); M01.X72 Direct infection of left ankle and foot in infectious and parasitic diseases classified elsewhere
CPT/HCPCS: 80048; 85027; 93005

== ENCOUNTER → 2022-01-07 | Day surgery (SDC) | payer MEDICARE, OTHER ==
[2022-01-06 09:18] VITALS: BMI 20.2
[~2022-01-07] MED LIST changes: +BENZOCAINE/MENTHOL LOZENG 1 EACH LOZENGE MUCOUS MEM PRN; +BUPIVACAIN-EPI 0.25%-1:200,000 30 ML VIAL SQ ONE; +DEXAMETHASONE SOD PHOSPHATE 4 MG/ML 1 ML VIAL IV ONE; +HYDROcodone/APAP 5-325MG 1 EACH TAB PO PRN; +HYDROmorphone 0.5 MG/0.5 ML SYRINGE IVP PRN; +IBUPROFEN 600 MG TAB PO PRN; +KETOROLAC 15 MG/ML 1 ML VIAL IVP ONE; +LIDOCAINE 2% INJ 20 MG/ML (2 ML VIAL) ONE; +NON FORMULARY DRUG (Acetaminophen [Tylenol] 325 MG Capsule) PO PRN; -ONDANSETRON 4 MG/2 ML VIAL IVP ONE; +PHENYLEPHRINE-0.9% NACL SYG 1,000 MCG/10 ML SYRINGE ONE; +PRAVASTATIN SODIUM 20 MG TAB PO SCH; +PROPOFOL 10 MG/ML 20 ML VIAL IV ONE; +SODIUM CHLORIDE 0.9% 1,000 ML IV SCH; -fentaNYL (PF) 50 MCG/ML 2 ML AMP IV PRN; +fentaNYL (PF) 50 MCG/ML 2 ML AMP ONE; +traMADol 50 MG TAB PO PRN
[2022-01-07] MEDS: ONDANSETRON 4 MG/2 ML VIAL IVP ONE ×2 (10:14→12:16)
[2022-01-07 11:48] VITALS: TEMP 98
[2022-01-07] MEDS: HYDROmorphone 0.5 MG/0.5 ML SYRINGE IVP PRN ×3 (11:54→12:15)
--- NOTE | 2022-01-07 12:14 | P.OP ---
Date of Procedure: 01/07/22 Preoperative Diagnosis: Left ankle lateral wound infection with history of open reduction internal fixation approximately 1 year ago for her left ankle bimalleolar fracture Postoperative Diagnosis: Same without any evidence of fracture or instability Anesthesia: GETA Pathology: other (Deep cultures sent to pathology microbiology) Condition: stable Disposition: PACU Description of Procedure: BRIEF OPERATIVE NOTE Preoperative Diagnosis: Left ankle lateral wound infection with history of open reduction internal fixation approximately 1 year ago for her left ankle bimalleolar fracturel Postoperative Diagnosis: Same, with findings of stable fracture union Procedure: Irrigation and excisional debridement of left ankle wound infection Removal of deep hardware left lateral malleolus the fibula Removal of deep hardware left distal tibia Surgeon: Dr. Clemons Male Infertility Specialist: Elbert Aguilar is present throughout the entire the case persistence during positioning, dissection, exposure, visualization, and all crucial elements of the case as well as closure. Anesthesia: General anesthesia Estimated blood loss: Less than 50 mL Tourniquet time: None Specimen: Deep wound culture of the lateral malleolus sent to pathology Complications: None apparent Components implanted: We did not implant any new hardware but we did remove a [employer]ynthe[employer] small frag one third semitubular plate with 6 screws with a combination of 3.5 cortical and 40 cannulated screws at the distal tibia Disposition: To recovery room in good stable condition. OPERATIVE INDICATIONS The patient had an injury over a year ago when she sustained an acute left ankle bimalleolar fracture with displacement. After discussing her injury with her she underwent open reduction internal fixation of her bimalleolar ankle fracture. She went on to heal quite well without any subsequent issues or problems and had good strength and was pain-free. However of. Weeks ago she wore a pair of boots without any socks and says that she rubbed her left lateral wound area and developed a blister. The blister does not heal but instead developed further problems and was having some drainage and purulence. The area was right over the lateral malleolus incision and was not healing well despite conservative treatment and antibiotics. With the persistent drainage despite local wound care and antibiotics we felt that there may be communication to the deep tissue and hardware. We felt that she may be best served with removal of the hardware with irrigation and formal debridement in the operating room. I discussed this with her at length and discussed risks, occasions alternatives and benefits of surgery. I answered her questions best my ability and she elected proceed with surgical intervention. OPERATIVE SUMMARY After discussing all the risks, patient alternatives and benefits at length, the patient elected to proceed with surgical intervention, signed informed consent, and presented for their procedure. The patient was seen and examined in the preoperative holding area and the surgical site was marked. The patient was given antibiotics and brought to the operating room. The patient was sedated and intubated by anesthesia in standard fashion. The patient was positioned on to the operating room table in a supine position with a pad under her right hip. We were careful to pad any bony prominences and pressure points. We were careful to maintain the patient's cervical spine and good neutral alignment and position throughout. We used C-arm machines to establish union fluoroscopic guidance in AP and lateral positions. We were able to localize the hardware at the distal fibula and tibia appropriately. The patient was prepped and draped in a normal standard fashion. An appropriate timeout and keystone protocol performed. We were able to proceed with the surgery. The local wound area was infiltrated with local anesthetic. An incision was made over the lateral aspect of the ankle and I dissected down to the distal fibula appropriately. We excised the denuded tissue and the infection. It seemed to travel deep to the level of the deep tissue and comm unicated with the hardware at the lateral malleolus. There is no purulence there is no active drainage. We are able to expose the hardware at the lateral malleolus and was able to removed with the screws and plate and they're examined and found to be in total. There is no purulence from the bone itself. The bone was solidly healed without any evidence of fracture or instability. At the distal tibia I made a separate incision and I was able to dissect down to the screw heads at the medial malleolus. The screws were palpated and removed in total. There is no further evidence of any fracture at the medial malleolus. It was stable. There is no purulence there is no evidence of infection. C-arm was utilized to confirm all removal of the hardware. There is no evidence of any instability at the ankle. The wound sites were copiously irrigated and suctioned dry. I removed and excised any denuded tissue from the lateral incision site. The margins without any clear and good healing surface. We were able to close the area and incisions with 2-0 PDS and melissa. The incisions are clean and dried and dressed with Adaptic 4 x 4's ABDs and web roll and Alfonso wrap. She had good necessary is at her toes. The patient was gently rolled back onto their hospital bed being careful to maintain their cervical spine and good neutral alignment and position. They were woken up by anesthesia, extubated, and brought to the recovery room in good stable condition. The patient will be able to be discharged from the hospital after appropriate observation due to and for appropriate postoperative care, medical management and monitoring. We will continue to follow them closely about the postoperative course. a plan see her back in the office in approximately 2 days time or sooner if she is having problems.
[2022-01-07 13:42] VITALS: BP 151/70; PULSE 63; RESP 16
--- NOTE | 2022-01-07 14:19 | FL ---
Fluoroscopy HISTORY: Open reduction internal fixation 1 seconds fluoroscopy time supplied to the referring clinician. 2 intraoperative C-arm images docume nt the procedure. See dictated report from orthopedic surgery.
== END | disposition home or self-care (01) ==
LOC: OR 09:48
PROVIDERS: ATTEND Orthopaedic Surgery Orthopaedic Surgery of the Spine
DX: T84.69XA Infection and inflammatory reaction due to internal fixation device of other site, initial encounter (principal); L03.116 Cellulitis of left lower limb; Z96.9 Presence of functional implant, unspecified; Z88.0 Allergy status to penicillin; Z87.81 Personal history of (healed) traumatic fracture; Z91.81 History of falling; Z98.1 Arthrodesis status; Y83.8 Other surgical procedures as the cause of abnormal reaction of the patient, or of later complication, without mention of misadventure at the time of the procedure; M51.36 Other intervertebral disc degeneration, lumbar region; Z88.5 Allergy status to narcotic agent; J45.909 Unspecified asthma, uncomplicated; Z87.891 Personal history of nicotine dependence; M19.90 Unspecified osteoarthritis, unspecified site; K21.9 Gastro-esophageal reflux disease without esophagitis; E78.5 Hyperlipidemia, unspecified; Z79.899 Other long term (current) drug therapy; Z80.0 Family history of malignant neoplasm of digestive organs
CPT/HCPCS: 87070; 87205; 87075; 73600; 20680; J0690 ×2; J2405; J3010; J1885; J2370; J2704; J1170; J2001

== ENCOUNTER 2022-04-17 22:53 | Emergency (ER) | payer MEDICARE, OTHER ==
[2022-04-18 00:05] VITALS: BP 154/81; PULSE 68; RESP 16; TEMP 97.9
[2022-04-18] MEDS ORDERED: traMADol 50 MG TAB PO STA (03:07)
--- NOTE | 2022-04-18 03:11 | ED ---
Extremity Problem HPI - General Chief complaint: Extremity Problem,Nontraumatic Stated complaint: LT ankle pain Time Seen by Provider: 04/18/22 02:46 Source: patient Mode of arrival: ambulatory Limitations: no limitations - History of Present Illness Initial comments: 's patient is 76-year-old woman who presents to have evaluation of left ankle wound. She states that there has been some discharge and some discomfort at the site. It is located on the lateral malleolus. Patient states that it is a surgical wound. She had removal of orthopedic surgery hardware in September. She states that following that the skin had opened and the wound has been healing for months now. She last saw the physician about a month ago and was told that it looked okay. She states that it is draining a little bit of yellowish fluid. She has not had fever or chills. No chest pain, dyspnea, hemoptysis, palpitations, lightheadedness or syncope. No calf pain. MD Complaint: other -: week(s) Location: left, lower extremity History of Same: Yes Quality: dull Consistency: constant Improves with: nothing Worsens with: nothing Associated Symptoms: denies other symptoms - Related Data Home Medications Medication Instructions Recorded Confirmed traMADol HCL 50 mg PO TID PRN 02/17/21 01/07/22 Acetaminophen [Tylenol] 325 mg PO DIRECTED PRN 01/06/22 01/07/22 Pravastatin Sodium [Pravachol] 20 mg PO DAILY 01/06/22 01/07/22 Previous Rx's Medication Instructions Recorded HYDROcodone/APAP 5-325MG [[place] 5] 1 each PO Q6HR PRN #12 tab 02/19/21 Ibuprofen [Motrin] 600 mg PO Q8HR PRN #20 tab 12/26/21 Cephalexin [Keflex] 500 mg PO Q6HR #40 cap 12/28/21 HYDROcodone/APAP 5-325MG [[place] 1 tab PO Q6HR PRN 3 Days #12 tab 01/07/22 5-325] Mupirocin 2% Oint [Bactroban 2% 1 applic TOPICAL BID #22 gm 04/18/22 Oint] traMADol HCl [Ultram] 50 mg PO Q6H PRN #15 tab 04/18/22 Allergies Allergy/AdvReac Type Severity Reaction Status Date / Time Penicillins Allergy Intermediate Rash/Hives Verified 01/07/22 10:03 morphine AdvReac Nausea & Verified 01/07/22 10:03 Vomiting Review of Systems ROS Statement: Those systems with pertinent positive or pertinent negative responses have been documented in the HPI. ROS Other: All systems not noted in ROS Statement are negative. Constitutional: Denies: fever, chills, weakness Respiratory: Denies: cough, dyspnea Cardiovascular: Denies: chest pain, palpitations, edema Musculoskeletal: Denies: joint swelling, myalgia Skin: Reports: as per HPI, other (Left ankle wound) Neurological: Denies: weakness, numbness, paresthesias Past Medical History Past Medical History: Asthma, Chest Pain / Angina, GERD/Reflux, Hyperlipidemia, Osteoarthritis (OA) Additional Past Medical History / Comment(s): Diverticulosis, Varicose Veins. History of Any Multi-Drug Resistant Organisms: None Reported Past Surgical History: Hysterectomy Additional Past Surgical History / Comment(s): hysterectomy in her 30's. Past Anesthesia/Blood Transfusion Reactions: No Reported Reaction Past Psychological History: No Psychological Hx Reported Smoking Status: Former smoker Past Alcohol Use History: None Reported Past Drug Use History: None Reported - Past Family History Father Family Medical History: Cancer Additional Family Medical History / Comment(s): Father age 72 of colon CA. Mother Family Medical History: No Reported History Additional Family Medical History / Comment(s): Mother in her 70's after hip fx. Sister(s) Family Medical History: Cancer General Exam Limitations: no limitations General appearance: alert, in no apparent distress Respiratory exam: Present: normal lung sounds bilaterally. Absent: respiratory distress, wheezes, rales, rhonchi, stridor Cardiovascular Exam: Present: regular rate, normal rhythm, normal heart sounds. Absent: systolic murmur, diastolic murmur, rubs, gallop Extremities exam: Present: full ROM, normal capillary refill. Absent: pedal edema, calf tenderness Neurological exam: Present: alert. Absent: motor sensory deficit Skin exam: Present: warm, dry, normal color, other (Patient has 3 areas where the left ankle incision had dehisced. There appears to be some fibrinous exudate present. There does not appear to be any purulent drainage. There is no abnormal erythema. There is some minimal tenderness near the open wounds.). Absent: erythema Course Vital Signs 04/18/22 00:03 Temperature 97.9 F Pulse Rate 68 Respiratory 16 Rate Blood Pressure 154/81 O2 Sat by Pulse 98 Oximetry Medical Decision Making - Medical Decision Making Patient has healing surgical incision that does not currently look infected. Culture swab is sent to the lab. Patient will use some topical antibiotics with the dressing changes. Discussed appropriate further care and follow-up and the return parameters Disposition Clinical Impression: Wound discharge Disposition: HOME SELF-CARE Condition: Good Instructions (If sedation given, give patient instructions): Chronic Wound Care (ED) Prescriptions: Mupirocin 2% Oint [Bactroban 2% Oint] 1 applic TOPICAL BID #22 gm traMADol HCl [Ultram] 50 mg PO Q6H PRN #15 tab PRN Reason: Pain Is patient prescribed a controlled substance at d/c from ED?: No Referrals: Nelson Torres MD [Primary Care Provider] - 1-2 days
== END 2022-04-18 03:34 | disposition home or self-care (01) ==
LOC: EC 22:53
DX: Z48.00 Encounter for change or removal of nonsurgical wound dressing (principal); J45.909 Unspecified asthma, uncomplicated; K21.9 Gastro-esophageal reflux disease without esophagitis; E78.5 Hyperlipidemia, unspecified; M19.90 Unspecified osteoarthritis, unspecified site; Z87.891 Personal history of nicotine dependence; Z79.899 Other long term (current) drug therapy
CPT/HCPCS: 87070; 87077; 87186; 87205; 99283

== ENCOUNTER → 2022-06-03 | Outpatient (CLI) | payer MEDICARE, OTHER ==
--- NOTE | 2022-06-04 07:01 | MR ---
EXAMINATION TYPE: MR ankle LT wo con DATE OF EXAM: 06/03/2022 COMPARISON: None HISTORY: Lt Ankle pain x1.5 years- Prev hardware in ankle but it has been removed and no open wounds Multiplanar multiecho imaging of the left ankle performed without contrast. There is mild narrowing of the ankle joint space. There is 1 cm increased fluid signal in the distal fibula consistent with previous surgery and old trauma. There is small area of subchondral fluid in t he medial malleolus. The talus appears intact. Achilles tendon is intact. Plantar fascia is intact. T here is some narrowing of the talonavicular joint space. The medial and lateral flexor tendons appear intact. No retraction. There is mild soft tissue edema a round the ankle. There is slight narrowing of the ankle joint space. IMPRESSION: There is evidence of previous surgery fixing bimalleolar fracture of the ankle. There is mild ankle j oint space narrowing. No acute fracture seen. No evidence of ligamentous or tendon tear present. Ther e is 1 cm area of extensive fluid signal in the distal fibula and ununited fracture is possible.
== END | disposition home or self-care (01) ==
LOC: RADMRIMAIN 05-30 14:03
PROVIDERS: ATTEND Podiatrist Foot & Ankle Surgery
DX: S82.842A Displaced bimalleolar fracture of left lower leg, initial encounter for closed fracture (principal); M25.872 Other specified joint disorders, left ankle and foot; M86.8X7 Other osteomyelitis, ankle and foot

== ENCOUNTER → 2023-08-26 | Outpatient (CLI) | payer MEDICARE, OTHER ==
--- NOTE | 2023-08-26 18:25 | XR ---
EXAMINATION TYPE: XR chest 2V DATE OF EXAM: 08/26/2023 4:24 PM CLINICAL INDICATION:Female, 78 years old with history of R05.9 COUGH; H COMPARISON: Chest radiographs from 05/20/2018. TECHNIQUE: XR chest 2V Frontal and lateral views of the chest. FINDINGS: Lungs/Pleura: There is no evidence of pleural effusion, focal consolidation, or pneumothorax. Pulmonary vascularity: Unremarkable. Heart/mediastinum: Cardiomediastinal silhouette is unremarkable. Musculoskeletal: No acute osseous pathology. IMPRESSION: 1. No acute cardiopulmonary disease process. 2. COPD changes.
== END | disposition home or self-care (01) ==
LOC: RADXRMAIN 15:58
PROVIDERS: ATTEND Internal Medicine
DX: J44.9 Chronic obstructive pulmonary disease, unspecified (principal)
CPT/HCPCS: 71046

== ENCOUNTER 2023-09-26 17:15 | Emergency (ER) | payer MEDICARE, OTHER ==
[2023-09-26 17:39] VITALS: TEMP 97.9
--- NOTE | 2023-09-26 18:34 | ED ---
Fall HPI - General Chief Complaint: Fall Stated Complaint: Fall, right side of body hurts Time Seen by Provider: 09/26/23 17:30 Source: patient, RN notes reviewed Mode of arrival: wheelchair - History of Present Illness Initial Comments: 78-year-old female with history of hypercholesterolemia presenting for fall 2 days ago. Patient states she a chair in the kitchen however slipped and fell, the right side of her head on the fridge on the way down and landing onto the kitchen floor on her right-hand side. Patient is currently complaining of right shoulder and right hip pain. Pain is worse with weightbearing. Patient admits right-sided headache currently. Patient did not lose consciousness and denies blood thinners. Denies vision changes abdominal pain, nausea, vomiting, numbness, tingling, weakness or confusion. Patient took Tylenol this morning for pain - Related Data Home Medications Medication Instructions Recorded Confirmed traMADol HCL 50 mg PO TID PRN 02/17/21 01/07/22 Acetaminophen [Tylenol] 325 mg PO DIRECTED PRN 01/06/22 01/07/22 Pravastatin Sodium [Pravachol] 20 mg PO DAILY 01/06/22 01/07/22 Previous Rx's Medication Instructions Recorded HYDROcodone/APAP 5-325MG [[place] 5] 1 each PO Q6HR PRN #12 tab 02/19/21 Ibuprofen [Motrin] 600 mg PO Q8HR PRN #20 tab 12/26/21 Cephalexin [Keflex] 500 mg PO Q6HR #40 cap 12/28/21 HYDROcodone/APAP 5-325MG [[place] 1 tab PO Q6HR PRN 3 Days #12 tab 01/07/22 5-325] Mupirocin 2% Oint [Bactroban 2% 1 applic TOPICAL BID #22 gm 04/18/22 Oint] traMADol HCl [Ultram] 50 mg PO Q6H PRN #15 tab 04/18/22 Lidocaine 5% Patch [Lidoderm 5% 1 patch TOPICAL DAILY PRN 7 Days 09/26/23 Patch] #7 patch Allergies Allergy/AdvReac Type Severity Reaction Status Date / Time Penicillins Allergy Intermediate Rash/Hives Verified 09/26/23 17:24 morphine AdvReac Nausea & Verified 09/26/23 17:24 Vomiting Review of Systems ROS Statement: Those systems with pertinent positive or pertinent negative responses have been documented in the HPI. ROS Other: All systems not noted in ROS Statement are negative. Past Medical History Past Medical History: Asthma, Chest Pain / Angina, GERD/Reflux, Hyperlipidemia, Osteoarthritis (OA) Additional Past Medical History / Comment(s): Diverticulosis, Varicose Veins. History of Any Multi-Drug Resistant Organisms: MRSA Date of last positivie culture/infection: 04/18/22 MDRO Source:: Left Ankle Past Surgical History: Hysterectomy Additional Past Surgical History / Comment(s): hysterectomy in her 30's. Past Anesthesia/Blood Transfusion Reactions: No Reported Reaction Past Psychological History: No Psychological Hx Reported Smoking Status: Former smoker Past Alcohol Use History: None Reported Past Drug Use History: None Reported - Past Family History Father Family Medical History: Cancer Additional Family Medical History / Comment(s): Father age 72 of colon CA. Mother Family Medical History: No Reported History Additional Family Medical History / Comment(s): Mother in her 70's after hip fx. Sister(s) Family Medical History: Cancer General Exam General appearance: alert, in no apparent distress Eye exam: Present: normal appearance, PERRL, EOMI. Absent: scleral icterus, conjunctival injection, periorbital swelling ENT exam: Present: normal exam, mucous membranes moist, TM's normal bilaterally Neck exam: Present: normal inspection. Absent: tenderness, meningismus, lymphadenopathy Respiratory exam: Present: normal lung sounds bilaterally. Absent: respiratory distress, wheezes, rales, rhonchi, stridor Cardiovascular Exam: Present: regular rate, normal rhythm, normal heart sounds. Absent: systolic murmur, diastolic murmur, rubs, gallop, clicks GI/Abdominal exam: Present: soft, normal bowel sounds. Absent: distended, tenderness, guarding, rebound, rigid Right General: Present: normal inspection Shoulder Exam: Present: full ROM, tenderness (Diffuse tenderness over posterior aspect of right shoulder. Full sensation and radial pulses bilaterally. Cap refill less than 2 seconds.). Absent: swelling, abrasion Upper Arm exam: Present: normal inspection, full ROM. Absent: tenderness, swelling Elbow exam: Present: normal inspection, full ROM. Absent: tenderness, swelling, abrasion Forearm Wrist exam: Present: normal inspection, full ROM. Absent: tenderness, swelling, abrasion Hand Wrist exam: Present: normal inspection, full ROM. Absent: tenderness, swelling, abrasion Right Hip exam: Present: normal inspection, full ROM, tenderness (Diffuse tenderness over the lateral aspect of right hip. Full sensation and dorsalis pedis pulses of bilateral lower extremities. Full strength bilaterally. Negative logroll test) Upper Leg exam: Present: normal inspection, full ROM. Absent: tenderness Knee exam: Present: normal inspection, full ROM. Absent: tenderness Lower Leg exam: Present: normal inspection, full ROM. Absent: tenderness Ankle exam: Present: normal inspection, full ROM. Absent: tenderness Foot/Toe exam: Present: normal inspection, full ROM. Absent: tenderness Course Vital Signs 09/26/23 17:18 Temperature 97.9 F Pulse Rate 71 Respiratory 18 Rate Blood Pressure 153/73 O2 Sat by Pulse 98 Oximetry Medical Decision Making - Medical Decision Making Was pt. sent in by a medical professional or institution (, [facility], [employer], urgent care, hospital, or intermediate...) When possible be specific @ -No Did you speak to anyone other than the patient for history (EMS, parent, family, police, friend...)? What history was obtained from this source @ -No Did you review nursing and triage notes (agree or disagree)? Why? @ -I reviewed and agree with nursing and triage notes Were old charts reviewed (outside hosp., previous admission, EMS record, old EKG, old radiological studies, urgent care reports/EKG's, intermediate records)? Report findings @ -No old charts were reviewed Differential Diagnosis (chest pain, altered mental status, abdominal pain women, abdominal pain men, vaginal bleeding, weakness, fever, dyspnea, syncope, headache, dizziness, GI bleed, back pain, seizure, CVA, palpatations, mental health, musculoskeletal)? @ -Differential Musculoskeletal Muscular strain, contusion, ligament sprain, fracture, arthritis, septic arthritis, bursitis, cellulitis, muscle spasm, nerve compression, DVT, arterial occlusion, herpes zoster, electrolyte abnormality, tumor.... This is not meant to be in all inclusive list EKG interpreted by me (3pts min.). @ -None X-rays interpreted by me (1pt min.). @ -Right shoulder and right hip x-ray revealed no acute fracture CT interpreted by me (1pt min.). @ -CT of head and neck revealed no acute process U/S interpreted by me (1pt. min.). @ -None done What testing was considered but not performed or refused? (CT, X-rays, U/S, labs)? Why? @ -None What meds were considered but not given or refused? Why? @ -None Did you discuss the management of the patient with other professionals (professionals i.e. Dr., PA, [employer], lab, RT, psych nurse, social insurance analyst, academic affairs specialist, teacher, duty officer, employment case manager)? Give summary @ -No Was smoking cessation discussed for >3mins.? @ -No Was critical care preformed (if so, how long)? @ -No Were there social determinants of health that impacted care today? How? (Homelessness, low income, unemployed, alcoholism, drug addiction, transportation, low edu. Level, literacy, decrease access to med. care, nursing home, rehab)? @ -No Was there de-escalation of care discussed even if they declined (Discuss DNR or withdrawal of care, Hospice)? DNR status @ -No What co-morbidities impacted this encounter? (DM, HTN, Smoking, COPD, CAD, Cancer, CVA, ARF, Chemo, Hep., AIDS, mental health diagnosis, sleep apnea, morbid obesity)? @ -None Was patient admitted / discharged? Hospital course, mention meds given and route, prescriptions, significant lab abnormalities, going to OR and other pertinent info. @ -Patient was discharged. Patient was seen and evaluated for right hip, right shoulder pain with head trauma 2 days ago. Neurovascularly intact. Neuro examination normal. X-rays and CT scan revealed no acute fracture or process. Alarm symptoms discussed with patient. Patient was given Tylenol for pain. Prescribed lidocaine patches for pain. Patient was discharged in stable condition. Case discussed with Dr. Dong Undiagnosed new problem with uncertain prognosis? @ -No Drug Therapy requiring intensive monitoring for toxicity (Heparin, Nitro, Insulin, Cardizem)? @ -No Were any procedures done? @ -No Diagnosis/symptom? @ -Head injury status post fall, right shoulder and hip contusion Acute, or Chronic, or Acute on Chronic? @ -Acute Uncomplicated (without systemic symptoms) or Complicated (systemic symptoms)? @ -Uncomplicated Side effects of treatment? @ -No Exacerbation, Progression, or Severe Exacerbation? @ -No Poses a threat to life or bodily function? How? (Chest pain, USA, CT, pneumonia, PE, COPD, DKA, ARF, appy, cholecystitis, CVA, Diverticulitis, Homicidal, Suicidal, threat to staff... and all critical care pts) @ -No Disposition Clinical Impression: Fall, Contusion of right hip, Contusion of right shoulder, Head injury without concussion or intracranial hemorrhage Disposition: HOME SELF-CARE Condition: Stable Instructions (If sedation given, give patient instructions): Fall Prevention for Older Adults (ED) Additional Instructions: Please return to the Emergency Department if symptoms worsen or any other concerns. Prescriptions: Lidocaine 5% Patch [Lidoderm 5% Patch] 1 patch TOPICAL DAILY PRN 7 Days #7 patch PRN Reason: Pain Is patient prescribed a controlled substance at d/c from ED?: No Referrals: Nelson Torres MD [Primary Care Provider] - 1-2 days Time of Disposition: 23:09
[2023-09-26] MEDS: ACETAMINOPHEN TAB 325 MG TAB PO STA (22:26)
--- NOTE | 2023-09-26 22:37 | CT ---
EXAMINATION TYPE: CT brain cspine wo con CT DLP: 1248.5 mGycm, Automated exposure control for dose reduction was used. DATE OF EXAM: 09/26/2023 6:36 PM COMPARISON: MRI brain 10/15/2021 CLINICAL INDICATION:Female, 78 years old with history of pain; recent fall TECHNIQUE: Brain: Multiple axial CT images of the brain were obtained without IV contrast. Cspine: Axial CT images from the skull base to the inferior aspect of T2 we obtained without intraven ous contrast. Coronal and sagittal reformatted images were also reviewed. FINDINGS: Brain: Extra-axial spaces: No abnormal extra-axial fluid collections. Ventricular system: Within normal limits. Cerebral parenchyma: No increased attenuation to suggest acute intraparenchymal hemorrhage. The gra y-white matter interface appears maintained. No significant atrophy. White matter unremarkable by C T. Cerebellum: No clear acute abnormality. In the posterior fossa is somewhat Y-shaped area of thin line ar increased attenuation which appears to correlate vascular calcification compared to the old study. Otherwise there is no clear acute hemorrhage. Mass effect: No evidence of mass effect or midline shift. Intracranial vasculature: Atherosclerotic calcifications of the larger arteries near the skull base. Soft tissues: No acute soft tissue abnormality. Visualized orbits: Orbital contents appear grossly intact. There has likely been previous lens surg bridget. Calvarium/osseous structures: No evidence of calvarial fracture. Paranasal sinuses and mastoid air cells: Clear. MRI is more sensitive for detecting acute processes such as infarct, and may be considered if clinica lly warranted. Cervical spine: Fracture: None seen. Osseous structures, spinal canal/neural foramina: There is generally mild multilevel degenerative dis c disease, appears greatest at the C5-C6 level where disc marginal osteophytes and mild facet arthros is causes mild canal and bilateral neuroforaminal stenosis. Vertebral alignment: No traumatic malalignment. Preserved normal cervical lordosis. Neck soft tissues: No acute finding.. Calcifications noted involving the cervical carotid arteries mo stly in the bifurcation regions, and along the aortic arch. Other: Lung apices show no acute infiltrate or pneumothorax. Mild emphysematous changes and scarring . Reticular densities at both lung apices may represent calcific scarring, more likely than postopera tive changes. There are calcified juxtapleural nodules in the posterior right lung, likely reflecting remote calcified granulomatous infection. No enlarged mediastinal nodes are shown. IMPRESSION: CT head: No acute intracranial hemorrhage, midline shift, or mass effect. CT cervical spine: 1. No evidence of acute cervical spine fracture or traumatic malalignment. 2. Mild cervical spondylosis.
[2023-09-26 23:40] VITALS: BP 142/71; PULSE 65; RESP 16
--- NOTE | 2023-09-27 00:41 | XR ---
EXAMINATION TYPE: XR Hip Complete RT DATE OF EXAM: 09/26/2023 6:40 PM CLINICAL INDICATION:Female, 78 years old with history of right hip injury; [facility] COMPARISON: None. TECHNIQUE: The right hip was examined in the frontal and lateral projections . FINDINGS: There is mild/moderate right hip osteoarthropathy. No dislocation. Preserved spherical shape of the femoral head with small marginal osteophytes seen. There is no defin ite cortical disruption or fracture lucency seen to indicate acute fracture. If there is persistent concern, and/or the patient cannot bear weight, he/she should be kept nonweigh tbearing until cross-sectional imaging can be performed. IMPRESSION: No acute fracture or dislocation seen.
--- NOTE | 2023-09-27 00:48 | XR ---
EXAMINATION TYPE: XR shoulder complete RT DATE OF EXAM: 09/26/2023 6:41 PM CLINICAL INDICATION:Female, 78 years old with history of right shoulder injury; [facility] COMPARISON: None TECHNIQUE: XR shoulder complete RT; shoulder was examined in AP, internally rotated and scapular Y p rojections. FINDINGS: No evidence of acute osseous pathology, joint dislocation, or soft tissue swelling. There are minor d egenerative changes for patient age. Minimal calcific tendinopathy of the rotator cuff suggested. No significant narrowing of the subacromial space is seen. IMPRESSION: No evidence of right shoulder fracture or dislocation.
== END 2023-09-26 23:21 | disposition home or self-care (01) ==
LOC: EC 17:15
DX: S70.01XA Contusion of right hip, initial encounter (principal); S40.011A Contusion of right shoulder, initial encounter; S09.90XA Unspecified injury of head, initial encounter; I62.9 Nontraumatic intracranial hemorrhage, unspecified; Z87.891 Personal history of nicotine dependence; Z88.0 Allergy status to penicillin; Z88.5 Allergy status to narcotic agent; W07.XXXA Fall from chair, initial encounter; Y92.000 Kitchen of unspecified non-institutional (private) residence as the place of occurrence of the external cause
CPT/HCPCS: 70450; 72125; 73502; 99284

== ENCOUNTER 2023-10-26 19:16 | Inpatient (IN) | payer MEDICARE, OTHER ==
--- NOTE | 2023-10-26 20:52 | ED ---
General Adult HPI - General Chief complaint: Recheck/Abnormal Lab/Rx Stated complaint: R Hip Injury Time Seen by Provider: 10/26/23 20:12 Source: patient, RN notes reviewed Mode of arrival: ambulatory - History of Present Illness Initial comments: 78-year-old female presented to the ED at request of Dr. Mayers of orthopedics. Patient states was sent in for admission for right hip surgery scheduled tomorrow. At this time patient has no complaints. - Related Data Home Medications Medication Instructions Recorded Confirmed traMADol HCL 50 mg PO TID PRN 02/17/21 01/07/22 Acetaminophen [Tylenol] 325 mg PO DIRECTED PRN 01/06/22 01/07/22 Pravastatin Sodium [Pravachol] 20 mg PO DAILY 01/06/22 01/07/22 Previous Rx's Medication Instructions Recorded HYDROcodone/APAP 5-325MG [[place] 5] 1 each PO Q6HR PRN #12 tab 02/19/21 Ibuprofen [Motrin] 600 mg PO Q8HR PRN #20 tab 12/26/21 Cephalexin [Keflex] 500 mg PO Q6HR #40 cap 12/28/21 HYDROcodone/APAP 5-325MG [[place] 1 tab PO Q6HR PRN 3 Days #12 tab 01/07/22 5-325] Mupirocin 2% Oint [Bactroban 2% 1 applic TOPICAL BID #22 gm 04/18/22 Oint] traMADol HCl [Ultram] 50 mg PO Q6H PRN #15 tab 04/18/22 Lidocaine 5% Patch [Lidoderm 5% 1 patch TOPICAL DAILY PRN 7 Days 09/26/23 Patch] #7 patch Allergies Allergy/AdvReac Type Severity Reaction Status Date / Time Penicillins Allergy Intermediate Rash/Hives Verified 09/26/23 17:24 morphine AdvReac Nausea & Verified 09/26/23 17:24 Vomiting Review of Systems ROS Statement: Those systems with pertinent positive or pertinent negative responses have been documented in the HPI. ROS Other: All systems not noted in ROS Statement are negative. Past Medical History Past Medical History: Asthma, Chest Pain / Angina, GERD/Reflux, Hyperlipidemia, Osteoarthritis (OA) Additional Past Medical History / Comment(s): Diverticulosis, Varicose Veins. History of Any Multi-Drug Resistant Organisms: MRSA Date of last positivie culture/infection: 04/18/22 MDRO Source:: Left Ankle Past Surgical History: Hysterectomy Additional Past Surgical History / Comment(s): hysterectomy in her 30's. Past Anesthesia/Blood Transfusion Reactions: No Reported Reaction Past Psychological History: No Psychological Hx Reported Smoking Status: Former smoker Past Alcohol Use History: None Reported Past Drug Use History: None Reported - Past Family History Father Family Medical History: Cancer Additional Family Medical History / Comment(s): Father age 72 of colon CA. Mother Family Medical History: No Reported History Additional Family Medical History / Comment(s): Mother in her 70's after hip fx. Sister(s) Family Medical History: Cancer General Exam General appearance: alert, in no apparent distress Eye exam: Present: normal appearance Neck exam: Present: normal inspection Respiratory exam: Present: normal lung sounds bilaterally Cardiovascular Exam: Present: regular rate GI/Abdominal exam: Present: soft, normal bowel sounds. Absent: distended, tenderness, guarding, rebound, rigid Back exam: Present: normal inspection Neurological exam: Present: alert, oriented X3 Skin exam: Present: warm, dry Course Vital Signs 10/26/23 19:33 Temperature 98.4 F Pulse Rate 69 Respiratory 18 Rate Blood Pressure 144/71 O2 Sat by Pulse 98 Oximetry Medical Decision Making - Medical Decision Making Was pt. sent in by a medical professional or institution ([facility], [employer], urgent care, hospital, or residential...) When possible be specific @ -Dr. Mayers Did you speak to anyone other than the patient for history (EMS, parent, family, police, friend...)? What history was obtained from this source @ -No Did you review nursing and triage notes (agree or disagree)? Why? @ -I reviewed and agree with nursing and triage notes Were old charts reviewed (outside hosp., previous admission, EMS record, old EKG, old radiological studies, urgent care reports/EKG's, residential records)? Report findings @ -No old charts were reviewed Differential Diagnosis (chest pain, altered mental status, abdominal pain women, abdominal pain men, vaginal bleeding, weakness, fever, dyspnea, syncope, headache, dizziness, GI bleed, back pain, seizure, CVA, palpatations, mental health, musculoskeletal)? @ -Differential Musculoskeletal Muscular strain, contusion, ligament sprain, fracture, arthritis, septic arthritis, bursitis, cellulitis, muscle spasm, nerve compression, DVT, arterial occlusion, herpes zoster, electrolyte abnormality, tumor.... This is not meant to be in all inclusive list EKG interpreted by me (3pts min.). @ -Pending X-rays interpreted by me (1pt min.). @ -Pending CT interpreted by me (1pt min.). @ -None done U/S interpreted by me (1pt. min.). @ -None done What testing was considered but not performed or refused? (CT, X-rays, U/S, labs)? Why? @ -None What meds were considered but not given or refused? Why? @ -None Did you discuss the management of the patient with other professionals (professionals i.e. , PA, [employer] DEVELOPER, lab, RT, psych nurse, social media community manager, boat engines installer, teacher, port patrol officer, case specialist)? Give summary @ -Case discussed with Dr. Mayers, who accepts admission Was smoking cessation discussed for >3mins.? @ -No Was critical care preformed (if so, how long)? @ -No Were there social determinants of health that impacted care today? How? (Homelessness, low income, unemployed, alcoholism, drug addiction, transportation, low edu. Level, literacy, decrease access to med. care, group home, rehab)? @ -No Was there de-escalation of care discussed even if they declined (Discuss DNR or withdrawal of care, Hospice)? DNR status @ -No What co-morbidities impacted this encounter? (DM, HTN, Smoking, COPD, CAD, Cancer, CVA, ARF, Chemo, Hep., AIDS, mental health diagnosis, sleep apnea, morbid obesity)? @ -None Was patient admitted / discharged? Hospital course, mention meds given and route, prescriptions, significant lab abnormalities, going to OR and other pertinent info. @ -Admission 78-year-old female presenting to the ED at request of Dr. Mayers for admission for right hip surgery tomorrow. At this time, patient has no current complaints. Patient will be admitted to orthopedics with consult to medicine for clearance. N.p.o. after midnight. Discussed plan of care with patient and family who are in agreement. Undiagnosed new problem with uncertain prognosis? @ -No Drug Therapy requiring intensive monitoring for toxicity (Heparin, Nitro, Insulin, Cardizem)? @ -No Were any procedures done? @ -No Diagnosis/symptom? @ -Right hip pain Acute, or Chronic, or Acute on Chronic? @ -Acute on chronic Uncomplicated (without systemic symptoms) or Complicated (systemic symptoms)? @ -Uncomplicated Side effects of treatment? @ -No Exacerbation, Progression, or Severe Exacerbation? @ -Non Poses a threat to life or bodily function? How? (Chest pain, [place], [place], pneumonia, PE, COPD, DKA, ARF, appy, cholecystitis, CVA, Diverticulitis, Homicidal, Suicidal, threat to staff... and all critical care pts) @ -No Disposition Clinical Impression: Right hip pain Disposition: ADMITTED IP TO THIS HOSP Condition: Good Referrals: Nelson Torres MD [Primary Care Provider] - 1-2 days Time of Disposition: 20:30
[2023-10-26] MEDS ORDERED: NALOXONE 0.4 MG/ML 1 ML VIAL IV PRN (21:00)
--- NOTE | 2023-10-26 21:10 | XR ---
EXAMINATION TYPE: XR chest 2V DATE OF EXAM: 10/26/2023 8:51 PM CLINICAL INDICATION:Female, 78 years old with history of presurgical; COMPARISON: Chest radiographs from 08/26/2023 TECHNIQUE: XR chest 2V Frontal and lateral views of the chest. FINDINGS: Lungs/Pleura: There is flattening of the diaphragm with increased lucency of the lungs. No evidence o f pneumothorax, pleural effusion or focal consolidation. Pulmonary vascularity: Unremarkable. Heart/mediastinum: Cardiomediastinal silhouette is unremarkable. Musculoskeletal: No acute osseous pathology. IMPRESSION: 1. No acute cardiopulmonary disease process. 2. COPD changes.
[2023-10-26 22:37] LABS: Basophils % (A) 1 %; Eosinophils # (A) 0.3 k/uL (0-0.7); Eosinophils % (A) 6 %; HCT 37.3 % (34.0-46.0); HGB 12.2 gm/dL (11.4-16.0); Lymphocytes # (A) 1.6 k/uL (1.0-4.8); Lymphocytes % (A) 29 %; MCH 30.3 pg (25.0-35.0); MCHC 32.9 g/dL (31.0-37.0); MCV 92.3 fL (80.0-100.0); Mean Platelet Volume 8.1; Monocytes # (A) 0.3 k/uL (0-1.0); Monocytes % (A) 6 %; Neutrophils # (A) 2.9 k/uL (1.3-7.7); Neutrophils % (A) 55 %; Platelet Count 262 k/uL (150-450); RBC 4.04 m/uL (3.80-5.40); RDW 12.6 % (11.5-15.5); WBC 5.3 k/uL (3.8-10.6)
[2023-10-26 22:53] LABS: Partial Thromboplastin Time 25.1 sec (22.0-30.0); Prothrombin Time 10.7 sec (10.0-12.5)
[2023-10-26 23:27] LABS: ALT 11 U/L (4-34); AST 24 U/L (14-36); African American GFR (CKD) >90 (>60 ml/min/1.73 sqM); Albumin 4.1 g/dL (3.5-5.0); Alkaline Phosphatase 60 U/L (38-126); Anion Gap 4 mmol/L; Blood Urea Nitrogen 14 mg/dL (7-17); Calcium 9.9 mg/dL (8.4-10.2); Carbon Dioxide 28 mmol/L (22-30); Chloride 109 mmol/L (98-107); Glucose 100 mg/dL (74-99); Non-African American GFR(CKD) 83 (>60 ml/min/1.73 sqM); Sodium 141 mmol/L (137-145); Total Bilirubin 0.8 mg/dL (0.2-1.3); Total Protein 7.2 g/dL (6.3-8.2)
[2023-10-26] MEDS: IBUPROFEN 600 MG TAB PO STA (23:57)
[2023-10-27] MEDS: ACETAMINOPHEN TAB 325 MG TAB PO PRN (02:10)
--- NOTE | 2023-10-27 07:49 | P.HPOR ---
History of Present Illness H&P Date: 10/27/23 the patient is very pleasant relatively healthy 78-year-old female who sustained a fall 1 month ago. She was seen in the ER here where x-rays were read as normal. She was discharged home. She had progressively worsening hip pain and difficulty ambulating over the next several weeks. She presented to my office earlier this week and was found to have a displaced subcapital femoral neck fracture. Her hip is exquisitely painful. My recommendation was for the patient to be sent as a direct admission to the emergency department at that time but the patient refused saying she had obligations to care for her family. The patient agreed to come in to the ER yesterday. She was admitted under my care. Internal medicine has been consulted for parents and medical management. This morning the patient is complaining of severe pain in her right hip. At baseline the patient lives alone in her own home and is a community ambulator without assisted device. Past Medical History Past Medical History: Asthma, Chest Pain / Angina, GERD/Reflux, Hyperlipidemia, Osteoarthritis (OA) Additional Past Medical History / Comment(s): Varicose Veins History of Any Multi-Drug Resistant Organisms: MRSA Date of last positivie culture/infection: 04/18/22 MDRO Source:: Left Ankle Past Surgical History: Appendectomy, Hysterectomy, Orthopedic Surgery Additional Past Surgical History / Comment(s): hysterectomy in her 30's., left ankle repair Past Anesthesia/Blood Transfusion Reactions: No Reported Reaction Past Psychological History: No Psychological Hx Reported Smoking Status: Former smoker Past Alcohol Use History: None Reported Additional Past Alcohol Use History / Comment(s): Quit smoking 30 yrs ago. Past Drug Use History: None Reported - Past Family History Father Family Medical History: Cancer Additional Family Medical History / Comment(s): Father age 72 of colon CA. Mother Family Medical History: No Reported History Additional Family Medical History / Comment(s): Mother in her 70's after hip fx. Sister(s) Family Medical History: Cancer Medications and Allergies Home Medications Medication Instructions Recorded Confirmed Type traMADol HCL 50 mg PO TID PRN 02/17/21 01/07/22 History HYDROcodone/APAP 5-325MG [[place] 5] 1 each PO Q6HR PRN #12 tab 02/19/21 01/07/22 Rx Ibuprofen [Motrin] 600 mg PO Q8HR PRN #20 tab 12/26/21 01/07/22 Rx Cephalexin [Keflex] 500 mg PO Q6HR #40 cap 12/28/21 01/07/22 Rx Acetaminophen [Tylenol] 325 mg PO DIRECTED PRN 01/06/22 01/07/22 History Pravastatin Sodium [Pravachol] 20 mg PO DAILY 01/06/22 01/07/22 History HYDROcodone/APAP 5-325MG [[place] 1 tab PO Q6HR PRN 3 Days #12 tab 01/07/22 Rx 5-325] Mupirocin 2% Oint [Bactroban 2% 1 applic TOPICAL BID #22 gm 04/18/22 Rx Oint] traMADol HCl [Ultram] 50 mg PO Q6H PRN #15 tab 04/18/22 Rx Lidocaine 5% Patch [Lidoderm 5% 1 patch TOPICAL DAILY PRN 7 Days 09/26/23 Rx Patch] #7 patch Allergies Allergy/AdvReac Type Severity Reaction Status Date / Time Penicillins Allergy Intermediate Rash/Hives Verified 09/26/23 17:24 morphine AdvReac Nausea & Verified 09/26/23 17:24 Vomiting Physical Examination the patient is resting comfortably in her bed. She is alert and able to answer questions. Her head is normocephalic and atraumatic. Her cervical spine is nontender and midline. She demonstrates nonlabored breathing with symmetric ch est expansion. Her abdomen is nonobese. Both upper extremities are without deformity and are nontender. The right lower extremity is slightly shortened and externally rotated. There is pain with any attempts at passive range of motion of the hip. On inspection of the skin anterior to the right hip there are no scars or lesions. The thigh and calf are soft. Femoral and sciatic nerve function is intact. Results x-rays from my office show a displaced subcapital right femoral neck fracture and mild bilateral hip arthritis. - Labs Labs: Abnormal Lab Results - Last 24 Hours (Table) 10/26/23 Range/Units 22:23 Chloride 109 H (98-107) mmol/L Glucose 100 H (74-99) mg/dL H & H 10/26/23 Range/Units 22:23 Hgb 12.2 (11.4-16.0) gm/dL Hct 37.3 (34.0-46.0) % Coagulation 10/26/23 Range/Units 22:23 INR 1.0 (<1.2) Result Diagrams: 10/26/23 22:23 10/26/23 22:23 Assessment and Plan Assessment: subacute displaced right subcapital femoral neck fracture Plan: I long discussion with the patient on treatment options earlier this week. She appears to have displaced a previously impacted and nondisplaced subcapital femoral neck fracture following her fall a month ago. Due to her x-ray findings and amount of pain my recommendation was to perform either a total or partial hip replacement depending on her bone quality and condition of the cartilage in her acetabulum. We discussed the risks and benefits of this at length. The patient understands and agrees to proceed with surgery. She will remain strictly bed rest and nothing by mouth until surgery later today. Internal medicine is been consulted for perioperative medical management and preoperative clearance. Time with Patient: Greater than 30
[2023-10-27] MEDS ORDERED: HYDROmorphone 0.5 MG/0.5 ML SYRINGE IVP PRN (09:44)
[2023-10-27] MEDS: HYDROmorphone 0.5 MG/0.5 ML SYRINGE IVP PRN (10:04)
[2023-10-27] MEDS: SODIUM CHLORIDE 0.9% 1,000 ML IV SCH (10:05)
--- NOTE | 2023-10-27 10:58 | P.CONS ---
History of Present Illness - Reason for Consult Consult date: 10/27/23 medical clearance - History of Present Illness this is an 78-year-old female patient who sustained a fall approximately 1 month ago initially presented to ER for x-rays were read as normal she was discharged home she had increasing pain and difficulty which prompted her to go to orthopedic office and was found to have a displaced subcapital femoral neck fracture. Patient was advised the ER for further evaluation. Patient has past medical history of asthma, chest pain, GERD, hyperlipidemia and osteoarthritis patient denies any cardiac history denies any history of blood clots. chest x- ray completed showing no acute cardiopulmonary disease process COPD changes. lab work revealing hemoglobin of 2.2, white blood cell 5.3 creatinine 0.67 and bun 14. Current vital signs temp 97.9, heart 61, blood pressure 135/70with pulse ox 98% on room air. At this time patient is resting comfortably in bed complaining of right hip pain. Patient denies chest pain or shortness of breath. Patient denies nausea vomiting or diarrhea. Patient denies any urinary burning or frequency. Review of Systems please refer to HPI otherwise unremarkable Past Medical History Past Medical History: Asthma, Chest Pain / Angina, GERD/Reflux, Hyperlipidemia, Osteoarthritis (OA) Additional Past Medical History / Comment(s): Varicose Veins History of Any Multi-Drug Resistant Organisms: MRSA Year Discovered:: 04/18/22 MDRO Source:: Left Ankle Past Surgical History: Appendectomy, Hysterectomy, Orthopedic Surgery Additional Past Surgical History / Comment(s): hysterectomy in her 30's., left ankle repair Past Anesthesia/Blood Transfusion Reactions: No Reported Reaction Past Psychological History: No Psychological Hx Reported Smoking Status: Former smoker Past Alcohol Use History: None Reported Additional Past Alcohol Use History / Comment(s): Quit smoking 30 yrs ago. Past Drug Use History: None Reported - Past Family History Father Family Medical History: Cancer Additional Family Medical History / Comment(s): Father age 72 of colon CA. Mother Family Medical History: No Reported History Additional Family Medical History / Comment(s): Mother in her 70's after hip fx. Sister(s) Family Medical History: Cancer Medications and Allergies Home Medications Medication Instructions Recorded Confirmed Type Pravastatin Sodium [Pravachol] 20 mg PO DAILY 01/06/22 10/27/23 History Albuterol Inhaler [Ventolin Hfa 2 puff INHALATION RT-Q4H PRN 10/27/23 10/27/23 History Inhaler] Ergocalciferol [Vitamin D2 (1250 1,250 mcg PO WEEKLY 10/27/23 10/27/23 History Mcg = 49563 Iu)] Fluticasone Nasal [place] [Flonase 1 - 2 spray EA NOSTRIL DAILY PRN 10/27/23 10/27/23 History Nasal [place]] HYDROcodone/APAP 10-325MG [[place] 1 tab PO Q6HR PRN 10/27/23 10/27/23 History 10-325] Ibuprofen [Motrin Ib] 600 mg PO Q8H 10/27/23 10/27/23 History Allergies Allergy/AdvReac Type Severity Reaction Status Date / Time Penicillins Allergy Intermediate Rash/Hives Verified 10/27/23 07:54 morphine AdvReac Nausea & Verified 10/27/23 07:54 Vomiting Physical Exam Vitals: Vital Signs Temp Pulse Pulse Resp BP BP Pulse Ox 10/27/23 07:44 98.5 F 57 L 16 135/70 98 10/27/23 02:00 97.9 F 61 161/67 97 10/26/23 23:55 61 18 156/77 98 10/26/23 19:33 98.4 F 69 18 144/71 98 Intake and Output 10/26/23 10/27/23 10/27/23 22:59 06:59 14:59 Other: Weight 58.967 kg 58.967 kg 1.fall with subacute displaced right subcapital femur neck fracture. Plans for surgical intervention today 10/27/2023 2. History of fall one month ago 3. History of asthma 4. History of GERD 5. History of hyperlipidemia 6. History of varicose veins 7. History of appendectomy Thank you for this consultation we'll continue follow patient closely throughout stay Patient cleared for surgical intervention Repeat labs ordered for a.m. Results CBC & Chem 7: 10/26/23 22:23 10/26/23 22:23 Labs: Abnormal Lab Results - Last 24 Hours (Table) 10/26/23 Range/Units 22:23 Chloride 109 H (98-107) mmol/L Glucose 100 H (74-99) mg/dL
[2023-10-27] MEDS: LACTATED RINGERS 1,000 ML IV ONE ×2 (15:15→18:39)
[2023-10-27] MEDS: MIDAZOLAM 2 MG/2 ML VIAL IVP ONE (16:09)
--- NOTE | 2023-10-27 16:40 | P.ANPRN ---
Procedure Note - Anesthesia - Nerve Block Performed Right Fab Single Date of Procedure: 10/27/23 Procedure Start Time: 16:09 Procedure Stop Time: 16:21 Location of Patient: PreOp Indication: Acute Post-Operative Pain, Requested by Surgeon Specifically requested for management of pain by DrAdriel: Raymond Mayers Sedation Type: Sedate with meaningful contact maintained Preparation: Sterile Prep Position: Supine Needle Gauge: 21 Ultrasound used to visualize needle placement: Yes Ultrasound used to observe medication spread: Yes Injectate: 0.5% Ropivacaine (see comment for volume) (30) Blood Aspirated: No Pain Paresthesia on Injection Noted: No Resistance on Injection: Normal Image Stored and Saved: Yes Events: Uneventful and Well Tolerated
[2023-10-27] MEDS: EPINEPHrine 2 MG in SODIUM CHLORIDE 0.9% 200 ML IV ONE (17:06)
[2023-10-27] MEDS: ROPIVACAINE/EPI/CLONIDINE/KET 50 ML SYRINGE MISCELLANE PRN (17:09)
[2023-10-27] MEDS: VANCOMYCIN 1,000 MG VIAL MISCELLANE ONE (18:22)
--- NOTE | 2023-10-27 19:07 | P.OP ---
Date of Procedure: 10/27/23 Preoperative Diagnosis: 1. Subacute, displaced right femoral neck fracture Postoperative Diagnosis: same Procedure(s) Performed: Right direct anterior total hip arthroplasty Implants: 1. [employer] Trident II Acetabular Cup, Size #50 2. [employer] Accolade C Size # 4 Femoral Stem, StandardOffset 3. Dual Mobility OD 38 mm, ID 22.2 mm, +0 neck Anesthesia: PARISAA, regional Surgeon: Raymond Mayers Mortgage Underwriter #1: Nakul Jon Estimated Blood Loss (ml): 200 IV fluids (ml): 800 Pathology: none sent Condition: stable Disposition: PACU Indications for Procedure: the patient is a very pleasant 78-year-old female who sustained a ground-level fall 1 month ago. She was seen in the emergency department where x-rays were read as negative and she was discharged. Over the last 4 weeks she has had progressively worsening hip and groin pain. She came to see me in the office this past Wednesday. X-rays of the right hip and pelvis showed a displaced subcapital femoral neck fracture. The patient had exquisite pain with any attempts at passive range of motion. My recommendation was for the patient to present to the emergency department as a direct admission to have an elective total hip replacement. I met with the patient and her family discussed the potential risks and complications of surgery. Risks discussed include, but are certainly not limited to, risks from anesthesia, superficial infection requiring local wound care or antibiotics, deep ariela-prosthetic joint infection and the treatment required to eradicate infection, intraoperative fracture, postoperative periprosthetic fracture, damage to local blood vessels or nerves particularly the lateral femoral cutaneous nerve, delayed wound healing requiring local wound care or possibly surgical debridement, hip dislocation, leg length discrepancy, soft tissue irritation around the total hip implant such as iliopsoas tendinitis or trochanteric bursitis, wear and osteolysis from the implants, squeaking or audible noises, groin pain, thigh pain, heterotopic ossification, stiffness, aseptic loosening of the implants, dissatisfaction with surgical outcome, need for revision surgery, DVT, PE, swelling of the operative extremity, acute coronary event, stroke, failure to thrive, and possibly loss of life or limb. The patient understands that while these are the most common complications after an elective hip replacement there are certainly other less common complications possible. They were given ample time to ask questions regarding the potential complications of a hip replacement. Following our discussion the patient provided their verbal and written consent to go forward with an elective total hip replacement. Operative Findings: displaced subcapital femoral neck fracture with obvious fracture line and displacement. There is a clear large effusion suggesting the fracture subacute. The patient had relatively good bone quality despite her advanced age and history of a femoral neck fracture Description of Procedure: The patient was identified in the preoperative holding area and the correct hip was marked with my initials. I reviewed the procedure and consent with the patient. All of their questions were answered. The patient was then brought back into the operating room by anesthesia. While on the [facility] anesthesia was administered by the anesthesia team. Preoperative antibiotics and tranexamic acid were also given. After the patient was under anesthesia I examined their ankles to determine their preoperative leg length discrepancy. The skin over th e anterior aspect of the hip was shaved to remove hair over the site of planned incision. Both feet and ankles were padded with webril and boots for the [place]phant were applied. The patient was then carefully transferred onto the [place] table. A perineal post was immediately placed. The arms were placed on arm holders and were well-padded. Both boots were secured to the spars on the [place]phant table. The patient was positioned so that the pelvis was centered over the post. Nonsterile drapes were applied. A timeout was performed identifying the correct patient, operative extremity, and procedure. At this point fluoroscopy was brought in to take preoperative images of the pelvis and operative hip. Using the standing AP pelvis from the office as a template, a comparable image was obtained with fluoroscopy. A metallic bar was used to create a bi-ischial line for use as a reference to leg length adjustments during the procedure. Global offset was also measured on both the operative and nonoperative leg. Fluoroscopy was then brought out and a pre-scrub using a chlorhexidine scrub brush was performed. The operative limb was then prepped and draped in the standard sterile fashion. An anterior longitudinal incision was made lateral and distal to the ASIS. The skin and subcutaneous tissues were incised sharply. The underlying tensor fascia was identified and incised in its midportion. The fascia was dissected free from the underlying muscle and the muscle belly was retracted. A blunt tipped cobra retractor was placed over the superior neck under the muscle fibers of the gluteus minimus. The deep enveloping fascia of the tensor was incised. The anterior leash of vessels were then identified and cauterized. The fascia between the rectus and the capsule was then incised and the pre-capsular fat was excised. A second Cobra was placed inferior to the neck. The interval between the rectus and iliocapsularis and the hip capsule was developed and a retractor was placed carefully over the anterior rim of the acetabulum. A T-shaped anterior capsulotomy was performed. The superior capsular leaflet was left in place in the inferior capsular flap was excised. The Cobra retractors were placed intracapsularly. We then made a femoral neck osteotomy according to preoperative and intraoperative templating and confirmed the level of the osteotomy using fluoroscopic imaging. The femoral head was removed, passed off to the back table, and sized. The superior capsular flap was excised. Retractors were placed circumferentially exposing the acetabulum. We then circumferentially debrided the acetabulum free of labrum and osteophytes. The pulvinar was removed to fully visualize the cotyloid fossa. We then sequentially reamed to achieve peripheral fit and excellent bleeding subchondral bone. The socket was thoroughly irrigated. The acetabular component was impacted into the appropriate position using fluoroscopy to guide version, inclination, and depth of insertion taking care to have a comparable image of the AP pelvis to the standing image taken in the office. An excellent press-fit was achieved and final position was confirmed using fluoroscopy. The press fit was augmented with bony cancellus dome screws. The liner was then impacted into the socket. Attention was then turned to the femur. The remnant dorsal lateral capsule was excised. The short external rotators were visible and protected. A bone hook was used to confirm appropriate translation of the trochanter away from the acetabulum. The leg was then extended and adducted and the bone hook was used to elevate the femur for broaching. On inspection of the patient's proximal femur, they appeared to have poor bone quality so I elected to proceed with cemented fixation of the femoral component. A box osteotome and blunt tipped canal sound was then utilized to gain access to the femoral canal. We then sequentially broached the femur in appropriate anteversion until torsional s tability was achieved and the implant was felt to have reached the appropriate size to allow trialing. The neck cut was brought flush to the trial broach with a calcar planar. A trial neck and head were then placed onto the broach and the hip was atraumatically reduced under direct visualization. External rotation to 90 was performed to assess stability. Fluoroscopy was brought in. An AP and lateral fluoroscopic image of the proximal femur was obtained to assess position and fill of the trial broach. An AP of the pelvis was then obtained and matched to the preoperative image taken. A bi-ischial bar was then placed and measurements were taken to assess changes in length and offset. The hip was then carefully dislocated, the proximal femur was exposed, and the trial implants were removed. The proximal femur was then prepared for cementing. The canal was thoroughly irrigated with pulsatile lavage to remove blood and marrow contents. A cement restrictor was placed to a depth just distal to the tip of the final implant. Epinephrine-soaked gauze was then packed into the proximal femur. 2 bags of cement were then mixed using a centrifuge and placed into a cement gun. Anesthesia was notified that cementing was about to commence to make sure the patient was appropriately ventilated and hydrated. Once the cement had reached appropriate consistency, the cement gun was used to fill the canal in a retrograde fashion starting at the restrictor. Cement was then pressurized into the canal with a blue tipped catalyst operator. The stem was then carefully introduced into the cement taking care to guide the implant into appropriate version. The stem was held in position until the cement had fully set. All extra cement was removed while the cement was hardening. The trunnion was cleansed and the final head was tapped into place to engage the Blackman taper. The acetabulum was irrigated and visualized to be free of debris. The hip was carefully reduced. Stability was checked clinically with external rotation to 90 and there was no evidence of instability. Final fluoroscopic images were taken. The wound was then thoroughly irrigated and soaked with a dilute Betadine rinse for 3 minutes. 3 L of sterile saline was irrigated through the wound using pulsatile lavage. Local anesthetic cocktail was injected into the soft tissues around the surgical field. The wound was then closed in layers. A sterile dressing was placed over the surgical incision. The drapes were taken down and the patient was carefully transferred off of the [place] table. Following removal of the boots the leg lengths felt acceptable. The patient was then taken to recovery room having tolerated the procedure well. Nakul Jon PA-C was required as a skilled assistant professor of sociology due to the complexity of surgery for patient positioning, draping, exposure, retraction, closure of wound, and application of dressing. PLAN: The patient can weight-bear as tolerated on the operative extremity. 2 doses of postoperative antibiotics. DVT prophylaxis with aspirin 81 mg twice a day based on preoperative risk stratification. Physical therapy for gait training.
--- NOTE | 2023-10-27 19:30 | XR ---
Fluoroscopy INDICATION: Hardware replacement FINDINGS: Fluoroscopy time: 33 seconds. Total dose area product (DAP) in uGy*m?, mGy*cm? (or similar): 0.7864 Images obtained: 7. IMPRESSION: 1. Documentation of fluoroscopy.
--- NOTE | 2023-10-27 19:31 | FL ---
Fluoroscopy INDICATION: Pain FINDINGS: Fluoroscopy time: 33 seconds. Total dose area product (DAP) in uGy*m?, mGy*cm? (or similar): 0.7864 Images obtained: 0. IMPRESSION: 1. Documentation of fluoroscopy.
[2023-10-27] MEDS: ONDANSETRON 4 MG/2 ML VIAL IVP PRN (19:54)
[2023-10-27] MEDS: HYDROcodone/APAP 5-325MG 1 EACH TAB PO PRN (19:55)
[2023-10-27] MEDS: LACTATED RINGERS 1,000 ML IV SCH (20:05)
[2023-10-27] MEDS: SENNOSIDES-DOCUSATE SODIUM 1 EACH TAB PO SCH (20:53)
[2023-10-27] MEDS: ASPIRIN 81 MG PO SCH (20:54)
--- NOTE | 2023-10-28 08:00 | P.PN ---
Subjective Patient is doing well this morning. She has mild discomfort in her right thigh but is otherwise doing well. She has been up to the bathroom several times without difficulty. She denies chest pain or shortness of breath. Objective - Vital Signs Vital signs: Vital Signs Temp 98.1 F 10/28/23 07:08 Pulse 76 10/28/23 07:08 Resp 18 10/28/23 07:08 BP 113/69 10/28/23 07:08 Pulse Ox 94 L 10/28/23 07:08 FiO2 Intake & Output 10/27/23 10/28/23 10/28/23 18:59 06:59 18:59 Intake Total 1852 Output Total 200 Balance 1652 Intake: IV 1852 Output: Estimated Blood Loss 200 Other: Voiding Method Bedpan # Voids 1 1 - Exam The patient is resting comfortably in their bed. A focused examination of the operative hip was performed. On inspection there is a clean-appearing dressing over the anterior hip with no drainage or strike through. There is mild swelling throughout the thigh. Femoral nerve function is intact. The patient is able to actively dorsiflex and plantarflex their ankle and toes. Sensation is intact to light touch throughout the foot. The foot is warm and well-perfused with brisk capillary refill. - Labs CBC & Chem 7: 10/26/23 22:23 10/26/23 22:23 Assessment and Plan Assessment: Postoperative day #1 status post right direct anterior hip replacement for suba cute femoral neck fracture Plan: 1. Weight bear as tolerated on the operative extremity, up with assistance and a walker 2. DVT prophylaxis with aspirin 81 mg BID 3. 2 doses of post operative antibiotics, followed by doxycycline 100 mg twice a day until her incision heals 4. Leave surgical dressing in place 5. Internal medicine for ariela-operative medical management 6. Physical therapy for gait training and mobilization 7. Dispo: The patient will likely need discharge to rehab which is in process of planning.
[2023-10-28] MEDS: DOXYCYCLINE 100 MG CAP PO SCH (09:00)
[2023-10-28] MEDS: HYDROcodone/APAP 5-325MG 1 EACH TAB PO PRN (09:02)
[2023-10-28 10:51] LABS: ALT 9 U/L (8-44); AST 20 U/L (13-35); Albumin 3.5 g/dL (3.8-4.9); Albumin/Globulin Ratio 1.67 Ratio (1.60-3.17); Alkaline Phosphatase 53 U/L (41-126); BUN/Creat Ratio 17.57 Ratio (12.00-20.00); Blood Urea Nitrogen 12.3 mg/dL (9.0-27.0); Calcium 8.7 mg/dL (8.7-10.3); Carbon Dioxide 23.3 mmol/L (21.6-31.8); Chloride 104 mmol/L (96-109); Globulin 2.1 g/dL (1.6-3.3); Glucose 120 mg/dL (70-110); Sodium 139 mmol/L (135-145); Total Bilirubin 0.6 mg/dL (0.3-1.2); Total Protein 5.6 g/dL (6.2-8.2)
[2023-10-28 11:01] LABS: Basophils # (A) 0.01 X 10*3/uL (0.00-0.10); Basophils % (A) 0.1 %; Eosinophils # (A) 0 X 10*3/uL (0.04-0.35); Eosinophils % (A) 0 %; HCT 30.4 % (37.2-46.3); HGB 9.7 g/dL (12.0-15.0); Lymphocytes # (A) 0.95 X 10*3/uL (0.90-5.00); Lymphocytes % (A) 9.7 %; MCH 29.7 pg (27.0-32.0); MCHC 31.9 g/dL (32.0-37.0); Mean Platelet Volume 10.9 FL (9.5-12.2); Monocytes # (A) 0.65 X 10*3/uL (0.20-1.00); Monocytes % (A) 6.6 %; NRBC Per 100 WBC 0 X 10*3/uL (0.00-0.01); Neutrophils # (A) 8.18 X 10*3/uL (1.80-7.70); Neutrophils % (A) 83.5 %; Platelet Count 249 X 10*3/uL (140-440); RBC 3.27 X 10*6/uL (4.10-5.20); RDW 12.2 % (11.5-14.5)
[2023-10-28] MEDS: MULTIVITAMINS, THERA 1 EACH TAB PO SCH (11:45)
--- NOTE | 2023-10-28 17:27 | P.PN ---
Subjective Progress Note Date: 10/28/23 Bruna Clark is an 78-year-old female patient who sustained a fall approximately 1 month ago initially presented to ER for x-rays were read as normal she was discharged home she had increasing pain and difficulty which prompted her to go to orthopedic office and was found to have a displaced subcapital femoral neck fracture. Patient was advised the ER for further evaluation. Patient has past medical history of asthma, chest pain, GERD, hyperlipidemia and osteoarthritis patient denies any cardiac history denies any history of blood clots. chest x- ray completed showing no acute cardiopulmonary disease process COPD changes. lab work revealing hemoglobin of 2.2, white blood cell 5.3 creatinine 0.67 and bun 14. Current vital signs temp 97.9, heart 61, blood pressure 135/70with pulse ox 98% on room air. At this time patient is resting comfortably in bed complaining of right hip pain. Patient denies chest pain or shortness of breath. Patient denies nausea vomiting or diarrhea. Patient denies any urinary burning or frequency. on 10/28/2023 patient was seen and examined on the medical floor she is alert and oriented 3 in no apparent distress there is no fever or chills no headache or dizziness no chest pain no shortness of breath no cough no nausea or vomiting no abdominal pain no diarrhea and no urinary symptoms Objective - Vital Signs Vital signs: Vital Signs Temp 98.1 F 10/28/23 07:08 Pulse 76 10/28/23 07:08 Resp 18 10/28/23 07:08 BP 113/69 10/28/23 07:08 Pulse Ox 94 L 10/28/23 07:08 FiO2 Intake & Output 10/27/23 10/28/23 10/28/23 18:59 06:59 18:59 Intake Total 1852 Output Total 200 Balance 1652 Intake: IV 1852 Output: Estimated Blood Loss 200 Other: Voiding Method Bedpan # Voids 1 1 - Exam In general patient is alert and oriented x 3 in no distress HEENT head normocephalic and atraumatic Neck is supple no JVD no goiter no lymphadenopathy no carotid bruit Chest examination is clear to auscultation no crackles no wheezing Cardiac exam reveals regular heart sounds S1 and S2 no gallops no murmurs Abdomen is soft nontender no organomegaly with normal bowel sounds Extremity exam reveals no edema no cyanosis or clubbing Neurological examination reveals no gross focal deficits - Labs CBC & Chem 7: 10/28/23 05:58 10/28/23 05:58 Labs: Abnormal Lab Results - Last 24 Hours (Table) 10/28/23 10/28/23 Range/Units 05:58 05:58 RBC 3.27 L (4.10-5.20) X 10*6/uL Hgb 9.7 L (12.0-15.0) g/dL Hct 30.4 L (37.2-46.3) % MCHC 31.9 L (32.0-37.0) g/dL Neutrophils # 8.18 H (1.80-7.70) X 10*3/uL Eosinophils # 0 L (0.04-0.35) X 10*3/uL Glucose 120 H (70-110) mg/dL Total Protein 5.6 L (6.2-8.2) g/dL Albumin 3.5 L (3.8-4.9) g/dL
--- NOTE | 2023-10-29 08:02 | P.PN ---
Subjective Progress Note Date: 10/29/23 The patient has increased pain today compared to yesterday but states she feels better than she did before surgery. She was up several times walking yesterday and in the chair. Other than pain in her hip she has no complaints this morning. She denies chest pain or shortness of breath. Objective - Vital Signs Vital signs: Vital Signs Temp 98.6 F 10/29/23 06:57 Pulse 89 10/29/23 06:57 Resp 18 10/29/23 06:57 BP 127/69 10/29/23 06:57 Pulse Ox 94 L 10/29/23 06:57 FiO2 Intake & Output 10/28/23 10/29/23 10/29/23 18:59 06:59 18:59 Output Total 0 Balance 0 Output: Stool 0 Other: Voiding Method Toilet # Voids 2 2 - Exam The patient is resting comfortably in bed. She is alert and able to answer questions. The dressing over the anterior aspect of her right hip is intact. Her thigh is soft and compressible. Femoral nerve function is intact. She is able to actively plantarflex and dorsiflex her ankle and her toes. - Labs CBC & Chem 7: 10/28/23 05:58 10/28/23 05:58 Labs: Abnormal Lab Results - Last 24 Hours (Table) 10/28/23 10/28/23 Range/Units 05:58 05:58 RBC 3.27 L (4.10-5.20) X 10*6/uL Hgb 9.7 L (12.0-15.0) g/dL Hct 30.4 L (37.2-46.3) % MCHC 31.9 L (32.0-37.0) g/dL Neutrophils # 8.18 H (1.80-7.70) X 10*3/uL Eosinophils # 0 L (0.04-0.35) X 10*3/uL Glucose 120 H (70-110) mg/dL Total Protein 5.6 L (6.2-8.2) g/dL Albumin 3.5 L (3.8-4.9) g/dL Assessment and Plan Assessment: Postoperative day #2 status post right direct anterior total hip arthroplasty for subacute femoral neck fracture Plan: Continue treatment as outlined yesterday. The patient can weight-bear as tolerated on her right leg with assistance. Encourage mobilization with therapy. DVT prophylaxis with aspirin 81 mg twice a day. Doxycycline 100 mg twice a day until her incision heals. Appreciate internal medicine's assistance with perioperative medical management. The patient will likely benefit from discharge to rehab. Discharge planning for this is in progress.
[2023-10-29] MEDS: HYDROmorphone 0.5 MG/0.5 ML SYRINGE IVP PRN (09:53)
--- NOTE | 2023-10-29 10:36 | P.PN ---
Subjective Progress Note Date: 10/29/23 Bruna Clark is an 78-year-old female patient who sustained a fall approximately 1 month ago initially presented to ER for x-rays were read as normal she was discharged home she had increasing pain and difficulty which prompted her to go to orthopedic office and was found to have a displaced subcapital femoral neck fracture. Patient was advised the ER for further evaluation. Patient has past medical history of asthma, chest pain, GERD, hyperlipidemia and osteoarthritis patient denies any cardiac history denies any history of blood clots. chest x- ray completed showing no acute cardiopulmonary disease process COPD changes. lab work revealing hemoglobin of 2.2, white blood cell 5.3 creatinine 0.67 and bun 14. Current vital signs temp 97.9, heart 61, blood pressure 135/70with pulse ox 98% on room air. At this time patient is resting comfortably in bed complaining of right hip pain. Patient denies chest pain or shortness of breath. Patient denies nausea vomiting or diarrhea. Patient denies any urinary burning or frequency. on 10/28/2023 patient was seen and examined on the medical floor she is alert and oriented 3 in no apparent distress there is no fever or chills no headache or dizziness no chest pain no shortness of breath no cough no nausea or vomiting no abdominal pain no diarrhea and no urinary symptoms On 10/29/2023 patient is alert and oriented 3 patient currently sitting up in chair. Patient complaining of right hip pain. Denies chest pain or shortness breath. Patient denies diarrhea. Patient denies any urinary burning or frequency.Current vital signs temp 98.6, heart rate 89, respiratory rate 18, blood pressure 127/69 with a pulse ox of 94% on room air. Discharge planning to [facility] Objective - Vital Signs Vital signs: Vital Signs Temp 98.6 F 10/29/23 06:57 Pulse 89 10/29/23 06:57 Resp 18 10/29/23 06:57 BP 127/69 10/29/23 06:57 Pulse Ox 94 L 10/29/23 06:57 FiO2 Intake & Output 10/28/23 10/29/23 10/29/23 18:59 06:59 18:59 Output Total 0 Balance 0 Output: Stool 0 Other: Voiding Method Toilet Toilet # Voids 2 2 - Exam In general patient is alert and oriented x 3 in no distress HEENT head normocephalic and atraumatic Neck is supple no JVD no goiter no lymphadenopathy no carotid bruit Chest examination is clear to auscultation no crackles no wheezing Cardiac exam reveals regular heart sounds S1 and S2 no gallops no murmurs Abdomen is soft nontender no organomegaly with normal bowel sounds Extremity exam reveals no edema no cyanosis or clubbing Neurological examination reveals no gross focal deficits - Labs CBC & Chem 7: 10/28/23 05:58 10/28/23 05:58 Labs: Abnormal Lab Results - Last 24 Hours (Table) 10/28/23 10/28/23 Range/Units 05:58 05:58 RBC 3.27 L (4.10-5.20) X 10*6/uL Hgb 9.7 L (12.0-15.0) g/dL Hct 30.4 L (37.2-46.3) % MCHC 31.9 L (32.0-37.0) g/dL Neutrophils # 8.18 H (1.80-7.70) X 10*3/uL Eosinophils # 0 L (0.04-0.35) X 10*3/uL Glucose 120 H (70-110) mg/dL Total Protein 5.6 L (6.2-8.2) g/dL Albumin 3.5 L (3.8-4.9) g/dL Assessment and Plan Assessment: 1.fall with subacute displaced right subcapital femur neck fracture. Status post surgical intervention 10/27/2023 2. History of fall one month ago 3. History of asthma 4. History of GERD 5. History of hyperlipidemia 6. History of varicose veins 7. History of appendectomy Thank you for this consultation we'll continue follow patient closely throughout stay Repeat labs ordered for a.m.
--- NOTE | 2023-10-30 09:18 | P.PN ---
Subjective Progress Note Date: 10/30/23 Principal diagnosis: Subacute femoral neck fracture right hip. Status post total right hip arthroplasty with direct anterior approach. This is an 78-year-old female who is postop day #3 status post direct anterior total right hip arthroplasty for subacute femoral neck fracture. The patient is stable from an orthopedic standpoint. She is complaining of some nausea this morning. She has had no vomiting or diarrhea. Her pain is fairly well- controlled today. She has not yet been up with physical therapy this morning. Objective - Vital Signs Vital signs: Vital Signs Temp 98.7 F 10/30/23 02:27 Pulse 85 10/30/23 02:27 Resp 16 10/30/23 02:27 BP 109/55 10/30/23 02:27 Pulse Ox 94 L 10/30/23 02:27 FiO2 Intake & Output 10/29/23 10/30/23 10/30/23 18:59 06:59 18:59 Other: Voiding Method Toilet # Voids 4 3 - Exam This is a pleasant 78-year-old female in no acute distress. She is alert and oriented x 3. Exam of the right lower extremity reveals that her hip dressing is clean, dry and intact. She has full foot and ankle motion bilaterally without difficulty or pain. Calf is nontender with palpation. Neurovascular status to the lower extremity is intact. - Labs CBC & Chem 7: 10/28/23 05:58 10/28/23 05:58 Assessment and Plan (1) Status post total replacement of right hip Current Visit: Yes Status: Acute Code(s): Z96.641 - PRESENCE OF RIGHT ARTIFICIAL HIP JOINT SNOMED Code(s): 891556640765 (2) Status post fracture of right hip Current Visit: Yes Status: Acute Code(s): Z87.81 - PERSONAL HISTORY OF (HEALED) TRAUMATIC FRACTURE SNOMED Code(s): 619561275 (3) Right hip pain Current Visit: Yes Status: Acute Code(s): M25.551 - PAIN IN RIGHT HIP SNOMED Code(s): 56288463 Plan: The clinical findings are discussed with the patient. I have spoken with nursing staff regarding her nausea which they will address this morning. We are awaiting physical therapy. I am anticipating discharge to home with home care in the next day or 2.
[2023-10-30 09:24] LABS: ALT 6 U/L (8-44); AST 21 U/L (13-35); Albumin 3.1 g/dL (3.8-4.9); Albumin/Globulin Ratio 1.55 Ratio (1.60-3.17); Alkaline Phosphatase 51 U/L (41-126); BUN/Creat Ratio 16.67 Ratio (12.00-20.00); Calcium 8.8 mg/dL (8.7-10.3); Carbon Dioxide 25.1 mmol/L (21.6-31.8); Chloride 105 mmol/L (96-109); Glucose 109 mg/dL (70-110); Potassium 3.8 mmol/L (3.5-5.5); Sodium 140 mmol/L (135-145); Total Bilirubin 0.6 mg/dL (0.3-1.2); Total Protein 5.1 g/dL (6.2-8.2)
--- NOTE | 2023-10-30 09:32 | P.PN ---
Subjective Progress Note Date: 10/30/23 Bruna Clark is an 78-year-old female patient who sustained a fall approximately 1 month ago initially presented to ER for x-rays were read as normal she was discharged home she had increasing pain and difficulty which prompted her to go to orthopedic office and was found to have a displaced subcapital femoral neck fracture. Patient was advised the ER for further evaluation. Patient has past medical history of asthma, chest pain, GERD, hyperlipidemia and osteoarthritis patient denies any cardiac history denies any history of blood clots. chest x- ray completed showing no acute cardiopulmonary disease process COPD changes. lab work revealing hemoglobin of 2.2, white blood cell 5.3 creatinine 0.67 and bun 14. Current vital signs temp 97.9, heart 61, blood pressure 135/70with pulse ox 98% on room air. At this time patient is resting comfortably in bed complaining of right hip pain. Patient denies chest pain or shortness of breath. Patient denies nausea vomiting or diarrhea. Patient denies any urinary burning or frequency. on 10/28/2023 patient was seen and examined on the medical floor she is alert and oriented 3 in no apparent distress there is no fever or chills no headache or dizziness no chest pain no shortness of breath no cough no nausea or vomiting no abdominal pain no diarrhea and no urinary symptoms On 10/29/2023 patient is alert and oriented 3 patient currently sitting up in chair. Patient complaining of right hip pain. Denies chest pain or shortness breath. Patient denies diarrhea. Patient denies any urinary burning or frequency.Current vital signs temp 98.6, heart rate 89, respiratory rate 18, blood pressure 127/69 with a pulse ox of 94% on room air. Discharge planning to [facility] [place]. on 10/30/2023 patient was seen and examined on the medical floor she is alert and oriented 3 in no apparent distress she is complaining of nausea, and is complaining of right hip pain otherwise she denies any complaints there is no fever or chills no headache or dizziness no chest pain no shortness of breath no cough no abdominal pain no diarrhea no blood in the stools no burning with urination no frequency or urgency and no hematuria Objective - Vital Signs Vital signs: Vital Signs Temp 98.7 F 10/30/23 02:27 Pulse 85 10/30/23 02:27 Resp 16 10/30/23 02:27 BP 109/55 10/30/23 02:27 Pulse Ox 94 L 10/30/23 02:27 FiO2 Intake & Output 10/29/23 10/30/23 10/30/23 18:59 06:59 18:59 Other: Voiding Method Toilet # Voids 4 3 - Exam In general patient is alert and oriented x 3 in no distress HEENT head normocephalic and atraumatic Neck is supple no JVD no goiter no lymphadenopathy no carotid bruit Chest examination is clear to auscultation no crackles no wheezing Cardiac exam reveals regular heart sounds S1 and S2 no gallops no murmurs Abdomen is soft nontender no organomegaly with normal bowel sounds Extremity exam reveals no edema no cyanosis or clubbing Neurological examination reveals no gross focal deficits - Labs CBC & Chem 7: 10/28/23 05:58 10/30/23 05:43 Assessment and Plan Assessment: 1.fall with subacute displaced right subcapital femur neck fracture. Status post surgical intervention 10/27/2023 2. History of fall one month ago 3. History of asthma 4. History of GERD 5. History of hyperlipidemia 6. History of varicose veins 7. History of appendectomy Thank you for this consultation we'll continue follow patient closely throughout stay Repeat labs ordered for a.m.
[2023-10-30 09:44] LABS: Basophils # (A) 0.02 X 10*3/uL (0.00-0.10); Basophils % (A) 0.3 %; Eosinophils # (A) 0.19 X 10*3/uL (0.04-0.35); Eosinophils % (A) 3.1 %; HCT 24.5 % (37.2-46.3); HGB 7.9 g/dL (12.0-15.0); Lymphocytes % (A) 19.9 %; MCH 30.2 pg (27.0-32.0); MCHC 32.2 g/dL (32.0-37.0); MCV 93.5 FL (80.0-97.0); Mean Platelet Volume 10.9 FL (9.5-12.2); Monocytes # (A) 0.77 X 10*3/uL (0.20-1.00); Monocytes % (A) 12.7 %; NRBC Per 100 WBC 0 X 10*3/uL (0.00-0.01); Neutrophils # (A) 3.84 X 10*3/uL (1.80-7.70); Neutrophils % (A) 63.7 %; Platelet Count 174 X 10*3/uL (140-440); RBC 2.62 X 10*6/uL (4.10-5.20); RBC Morphology Normal (Normal); RDW 12.8 % (11.5-14.5); WBC 6.04 X 10*3/uL (4.50-10.00)
[2023-10-30] MEDS: ENOXAPARIN 40 MG/0.4 ML SYRINGE SQ SCH (11:27)
[2023-10-30] MEDS: PANTOPRAZOLE 40 MG TABLET PO SCH (12:21)
[2023-10-30] MEDS: traMADol 50 MG TAB PO PRN (17:04)
[2023-10-31] MEDS: ONDANSETRON 4 MG/2 ML VIAL IVP PRN (09:14)
[2023-10-31 09:27] LABS: Basophils # (A) 0.03 X 10*3/uL (0.00-0.10); Basophils % (A) 0.7 %; Eosinophils # (A) 0.26 X 10*3/uL (0.04-0.35); Eosinophils % (A) 5.8 %; HCT 24.3 % (37.2-46.3); HGB 7.6 g/dL (12.0-15.0); Lymphocytes # (A) 1.17 X 10*3/uL (0.90-5.00); Lymphocytes % (A) 25.9 %; MCHC 31.3 g/dL (32.0-37.0); MCV 92.7 FL (80.0-97.0); Mean Platelet Volume 10.6 FL (9.5-12.2); Monocytes # (A) 0.53 X 10*3/uL (0.20-1.00); Monocytes % (A) 11.7 %; NRBC Per 100 WBC 0 X 10*3/uL (0.00-0.01); Neutrophils # (A) 2.52 X 10*3/uL (1.80-7.70); Neutrophils % (A) 55.7 %; Platelet Count 182 X 10*3/uL (140-440); RBC 2.62 X 10*6/uL (4.10-5.20); RDW 12.6 % (11.5-14.5); WBC 4.52 X 10*3/uL (4.50-10.00)
[2023-10-31] MEDS ORDERED: PROCHLORPERAZINE INJ 10 MG/2 ML VIAL IVP PRN (09:47)
--- NOTE | 2023-10-31 09:49 | P.PN ---
Subjective Progress Note Date: 10/31/23 Bruna Clark is an 78-year-old female patient who sustained a fall approximately 1 month ago initially presented to ER for x-rays were read as normal she was discharged home she had increasing pain and difficulty which prompted her to go to orthopedic office and was found to have a displaced subcapital femoral neck fracture. Patient was advised the ER for further evaluation. Patient has past medical history of asthma, chest pain, GERD, hyperlipidemia and osteoarthritis patient denies any cardiac history denies any history of blood clots. chest x- ray completed showing no acute cardiopulmonary disease process COPD changes. lab work revealing hemoglobin of 2.2, white blood cell 5.3 creatinine 0.67 and bun 14. Current vital signs temp 97.9, heart 61, blood pressure 135/70with pulse ox 98% on room air. At this time patient is resting comfortably in bed complaining of right hip pain. Patient denies chest pain or shortness of breath. Patient denies nausea vomiting or diarrhea. Patient denies any urinary burning or frequency. on 10/28/2023 patient was seen and examined on the medical floor she is alert and oriented 3 in no apparent distress there is no fever or chills no headache or dizziness no chest pain no shortness of breath no cough no nausea or vomiting no abdominal pain no diarrhea and no urinary symptoms On 10/29/2023 patient is alert and oriented 3 patient currently sitting up in chair. Patient complaining of right hip pain. Denies chest pain or shortness breath. Patient denies diarrhea. Patient denies any urinary burning or frequency.Current vital signs temp 98.6, heart rate 89, respiratory rate 18, blood pressure 127/69 with a pulse ox of 94% on room air. Discharge planning to [facility] [place]. on 10/30/2023 patient was seen and examined on the medical floor she is alert and oriented 3 in no apparent distress she is complaining of nausea, and is complaining of right hip pain otherwise she denies any complaints there is no fever or chills no headache or dizziness no chest pain no shortness of breath no cough no abdominal pain no diarrhea no blood in the stools no burning with urination no frequency or urgency and no hematuria On 10/31/2023 patient is alert and oriented x 3. Patient complaining of increased nausea and vomiting today. Possibly secondary to doxycycline and pain meds. Will order IV Compazine as needed. Patient denies chest pain. Patient is having bowel movements. Patient denies any urinary burning or frequency Hemoglobin low at 7.6 will order iron studies Objective - Vital Signs Vital signs: Vital Signs Temp 98.0 F 10/31/23 07:27 Pulse 83 10/31/23 07:27 Resp 18 10/31/23 07:27 BP 129/74 10/31/23 07:27 Pulse Ox 95 10/31/23 07:27 FiO2 Intake & Output 10/30/23 10/31/23 10/31/23 18:59 06:59 18:59 Other: # Voids 2 3 - Exam In general patient is alert and oriented x 3 in no distress HEENT head normocephalic and atraumatic Neck is supple no JVD no goiter no lymphadenopathy no carotid bruit Chest examination is clear to auscultation no crackles no wheezing Cardiac exam reveals regular heart sounds S1 and S2 no gallops no murmurs Abdomen is soft nontender no organomegaly with normal bowel sounds Extremity exam reveals no edema no cyanosis or clubbing Neurological examination reveals no gross focal deficits - Labs CBC & Chem 7: 10/31/23 06:02 10/30/23 05:43 Labs: Abnormal Lab Results - Last 24 Hours (Table) 10/31/23 Range/Units 06:02 RBC 2.62 L (4.10-5.20) X 10*6/uL Hgb 7.6 L (12.0-15.0) g/dL Hct 24.3 L (37.2-46.3) % MCHC 31.3 L (32.0-37.0) g/dL Assessment and Plan Assessment: 1.fall with subacute displaced right subcapital femur neck fracture. Status post surgical intervention 10/27/2023 2. History of fall one month ago 3. History of asthma 4. History of GERD 5. History of hyperlipidemia 6. History of varicose veins 7. History of appendectomy Thank you for this consultation we'll continue follow patient closely throughout stay Repeat labs ordered for a.m.
[2023-10-31 10:41] LABS: ALT 6 U/L (8-44); AST 20 U/L (13-35); Albumin/Globulin Ratio 1.43 Ratio (1.60-3.17); Alkaline Phosphatase 52 U/L (41-126); BUN/Creat Ratio 15.57 Ratio (12.00-20.00); Blood Urea Nitrogen 10.9 mg/dL (9.0-27.0); Calcium 8.8 mg/dL (8.7-10.3); Carbon Dioxide 26.5 mmol/L (21.6-31.8); Chloride 104 mmol/L (96-109); Globulin 2.1 g/dL (1.6-3.3); Glucose 97 mg/dL (70-110); Potassium 3.9 mmol/L (3.5-5.5); Sodium 140 mmol/L (135-145); Total Bilirubin 0.5 mg/dL (0.3-1.2); Total Protein 5.1 g/dL (6.2-8.2)
--- NOTE | 2023-10-31 10:50 | P.PN ---
Subjective Progress Note Date: 10/31/23 Principal diagnosis: Subacute femoral neck fracture right hip. Status post total right hip arthroplasty with direct anterior approach. Nausea. This is an 78-year-old female who is postop day #4 status post direct anterior total right hip arthroplasty for subacute femoral neck fracture. The patient is stable from an orthopedic standpoint. She is continues to complain of some n ausea this morning. She has had no vomiting or diarrhea. She has not had a bowel movement in a couple of days. Her pain is fairly well-controlled today. She is currently sitting up in the chair. Per nursing, she is not independent with ambulation and is requiring quite a bit of assistance. She is also complaining of right shoulder pain since the fall. She states that shoulder pain feels worse today. She reports no numbness or tingling to the right upper extremity. Objective - Vital Signs Vital signs: Vital Signs Temp 98.0 F 10/31/23 07:27 Pulse 83 10/31/23 07:27 Resp 18 10/31/23 07:27 BP 129/74 10/31/23 07:27 Pulse Ox 95 10/31/23 07:27 FiO2 Intake & Output 10/30/23 10/31/23 10/31/23 18:59 06:59 18:59 Other: # Voids 2 3 - Exam This is a pleasant 78-year-old female in no acute distress. She is alert and oriented x 3. She is sitting up in a chair. She seems quite nauseous at this time. Exam of the right shoulder reveals no obvious deformity or swelling. She has active forward flexion to about 110 degrees. There is pain with motion of the shoulder. Exam of the right lower extremity reveals that her hip dressing is clean, dry and intact. She has full foot and ankle motion bilaterally without difficulty or pain. She is unable to raise the leg independently. Calf is nontender with palpation. Neurovascular status to the lower extremity is intact. - Labs CBC & Chem 7: 10/31/23 06:02 10/31/23 06:02 Labs: Abnormal Lab Results - Last 24 Hours (Table) 10/31/23 10/31/23 Range/Units 06:02 06:02 RBC 2.62 L (4.10-5.20) X 10*6/uL Hgb 7.6 L (12.0-15.0) g/dL Hct 24.3 L (37.2-46.3) % MCHC 31.3 L (32.0-37.0) g/dL ALT 6 L (8-44) U/L Total Protein 5.1 L (6.2-8.2) g/dL Albumin 3.0 L (3.8-4.9) g/dL Albumin/Globulin Ratio 1.43 L (1.60-3.17) Ratio Assessment and Plan (1) Status post total replacement of right hip Current Visit: Yes Status: Acute Code(s): Z96.641 - PRESENCE OF RIGHT ARTIF ICIAL HIP JOINT SNOMED Code(s): 140908523679 (2) Status post fracture of right hip Current Visit: Yes Status: Acute Code(s): Z87.81 - PERSONAL HISTORY OF (HEALED) TRAUMATIC FRACTURE SNOMED Code(s): 603219106 (3) Right hip pain Current Visit: Yes Status: Acute Code(s): M25.551 - PAIN IN RIGHT HIP SNOMED Code(s): 97406615 Plan: The clinical findings are discussed with the patient. I have spoken with nursing staff regarding her nausea which they will address this morning. I have ordered abdominal x-ray as well as a right shoulder x-ray. I will ask physical therapy and Occupational Therapy to reevaluate. I feel that her inpatient rehab status should be reconsidered.
--- NOTE | 2023-10-31 12:28 | XR ---
EXAMINATION TYPE: XR shoulder complete RT DATE OF EXAM: 10/31/2023 COMPARISON: NONE HISTORY: Pain TECHNIQUE: Right Shoulder examined in 3 projections. FINDINGS: The humeral head articulates with the glenoid. The acromio-clavicular junction is normal. No acute fractures or dislocations are evident. A follow up study can be performed 7-10 days from acute trauma for continued pain. MRI can be perfor med if soft tissue evaluation would be of benefit. IMPRESSION: 1. No acute osseous right shoulder abnormality.
--- NOTE | 2023-10-31 12:29 | XR ---
EXAMINATION TYPE: XR abdomen 2V DATE OF EXAM: 10/31/2023 COMPARISON: None INDICATION: Ileus TECHNIQUE: Abdomen is examined in the upright and supine view FINDINGS: No free air is evident. No suspicious differential air-fluid levels are present. Couple of air-fluid levels are within the region of the cecum. No dilated small bowel loops are evident. Some minimal non specific small bowel gas may be within the pelvis. Psoas margins are normal. No organomegaly is present. IMPRESSION: 1. Nonspecific abdomen.
[2023-10-31] MEDS: MAGNESIUM HYDROXIDE 2,400 MG/30 ML CUP PO PRN (12:35)
[2023-10-31 14:51] LABS: % Iron Saturation 13.74 (12.00-45.00)
[2023-11-01] MEDS ORDERED: ALBUTEROL NEBULIZED 2.5 MG/3 ML INHALATION PRN (09:01)
[2023-11-01 09:26] LABS: Basophils # (A) 0.03 X 10*3/uL (0.00-0.10); Basophils % (A) 0.6 %; Eosinophils # (A) 0.17 X 10*3/uL (0.04-0.35); Eosinophils % (A) 3.2 %; HCT 24.8 % (37.2-46.3); HGB 7.9 g/dL (12.0-15.0); MCHC 31.9 g/dL (32.0-37.0); MCV 94.3 FL (80.0-97.0); Mean Platelet Volume 10.8 FL (9.5-12.2); Monocytes # (A) 0.52 X 10*3/uL (0.20-1.00); Monocytes % (A) 9.8 %; NRBC Per 100 WBC 0 X 10*3/uL (0.00-0.01); Neutrophils # (A) 3.64 X 10*3/uL (1.80-7.70); Platelet Count 233 X 10*3/uL (140-440); RBC 2.63 X 10*6/uL (4.10-5.20); RDW 12.5 % (11.5-14.5); WBC 5.28 X 10*3/uL (4.50-10.00)
[2023-11-01 09:38] LABS: ALT 8 U/L (8-44); AST 20 U/L (13-35); Albumin 3.2 g/dL (3.8-4.9); Albumin/Globulin Ratio 1.45 Ratio (1.60-3.17); Alkaline Phosphatase 51 U/L (41-126); Blood Urea Nitrogen 8.4 mg/dL (9.0-27.0); Calcium 8.7 mg/dL (8.7-10.3); Carbon Dioxide 27.8 mmol/L (21.6-31.8); Chloride 104 mmol/L (96-109); Globulin 2.2 g/dL (1.6-3.3); Glucose 99 mg/dL (70-110); Sodium 141 mmol/L (135-145); Total Bilirubin 0.5 mg/dL (0.3-1.2); Total Protein 5.4 g/dL (6.2-8.2)
--- NOTE | 2023-11-01 09:54 | P.PN ---
Subjective Progress Note Date: 11/01/23 Bruna Clark is an 78-year-old female patient who sustained a fall approximately 1 month ago initially presented to ER for x-rays were read as normal she was discharged home she had increasing pain and difficulty which prompted her to go to orthopedic office and was found to have a displaced subcapital femoral neck fracture. Patient was advised the ER for further evaluation. Patient has past medical history of asthma, chest pain, GERD, hyperlipidemia and osteoarthritis patient denies any cardiac history denies any history of blood clots. chest x- ray completed showing no acute cardiopulmonary disease process COPD changes. lab work revealing hemoglobin of 2.2, white blood cell 5.3 creatinine 0.67 and bun 14. Current vital signs temp 97.9, heart 61, blood pressure 135/70with pulse ox 98% on room air. At this time patient is resting comfortably in bed complaining of right hip pain. Patient denies chest pain or shortness of breath. Patient denies nausea vomiting or diarrhea. Patient denies any urinary burning or frequency. on 10/28/2023 patient was seen and examined on the medical floor she is alert and oriented 3 in no apparent distress there is no fever or chills no headache or dizziness no chest pain no shortness of breath no cough no nausea or vomiting no abdominal pain no diarrhea and no urinary symptoms On 10/29/2023 patient is alert and oriented 3 patient currently sitting up in chair. Patient complaining of right hip pain. Denies chest pain or shortness breath. Patient denies diarrhea. Patient denies any urinary burning or frequency.Current vital signs temp 98.6, heart rate 89, respiratory rate 18, blood pressure 127/69 with a pulse ox of 94% on room air. [facility] planning to [facility] [place] on 10/30/2023 patient was seen and examined on the medical floor she is alert and oriented 3 in no apparent distress she is complaining of nausea, and is complaining of right hip pain otherwise she denies any complaints there is no fever or chills no headache or dizziness no chest pain no shortness of breath no cough no abdominal pain no diarrhea no blood in the stools no burning with urination no frequency or urgency and no hematuria On 10/31/2023 patient is alert and oriented x 3. Patient complaining of increased nausea and vomiting today. Possibly secondary to doxycycline and pain meds. Will order IV Compazine as needed. Patient denies chest pain. Patient is having bowel movements. Patient denies any urinary burning or frequency Hemoglobin low at 7.6 will order iron studies on 11/01/2023 patient was seen and examined on the medical floor she is alert and oriented 3 in no apparent distress she is still complaining of right hip pain, she is stating her nausea has improved, otherwise she denies any complaints, there is no fever or chills no headache or dizziness no chest pain no shortness of breath no cough no vomiting no abdominal pain no diarrhea no blood in the stools no burning with urination no frequency or urgency and no hematuria. Patient continues to improve gradually, medication and labs were reviewed continue with current management. Objective - Vital Signs Vital signs: Vital Signs Temp 98.8 F 11/01/23 07:55 Pulse 82 11/01/23 07:55 Resp 18 11/01/23 07:55 BP 110/65 11/01/23 07:55 Pulse Ox 95 11/01/23 07:55 FiO2 Intake & Output 10/31/23 11/01/23 11/01/23 18:59 06:59 18:59 Other: # Voids 2 3 - Exam In general patient is alert and oriented x 3 in no distress HEENT head normocephalic and atraumatic Neck is supple no JVD no goiter no lymphadenopathy no carotid bruit Chest examination is clear to auscultation no crackles no wheezing Cardiac exam reveals regular heart sounds S1 and S2 no gallops no murmurs Abdomen is soft nontender no organomegaly with normal bowel sounds Extremity exam reveals no edema no cyanosis or clubbing Neurological examination reveals no gross focal deficits - Labs CBC & Chem 7: 11/01/23 05:41 11/01/23 05:41 Labs: Abnormal Lab Results - Last 24 Hours (Table) 10/31/23 10/31/23 10/31/23 Range/Units 06:02 06:02 06:02 RBC 2.62 L (4.10-5.20) X 10*6/uL Hgb 7.6 L (12.0-15.0) g/dL Hct 24.3 L (37.2-46.3) % MCHC 31.3 L (32.0-37.0) g/dL Iron 25 L (50-170) UG/DL TIBC 182 L (228-460) UG/DL Transferrin 130.0 L (204.0-354.0) mg/dL ALT 6 L (8-44) U/L Total Protein 5.1 L (6.2-8.2) g/dL Albumin 3.0 L (3.8-4.9) g/dL Albumin/Globulin Ratio 1.43 L (1.60-3.17) Ratio Assessment and Plan Assessment: 1.fall with subacute displaced right subcapital femur neck fracture. Status post surgical intervention 10/27/2023 2. History of fall one month ago 3. History of asthma 4. History of GERD 5. History of hyperlipidemia 6. History of varicose veins 7. History of appendectomy Thank you for this consultation we'll continue follow patient closely throughout stay Repeat labs ordered for a.m.
[2023-11-01] MEDS: SODIUM FERRIC GLUCONAT-SUCROSE 125 MG in SODIUM CHLORIDE 0.9% 100 ML IVPB ONE (10:00)
--- NOTE | 2023-11-01 10:14 | P.PN ---
Subjective Progress Note Date: 11/01/23 Principal diagnosis: Subacute femoral neck fracture right hip. Status post total right hip arthroplasty with direct anterior approach. Nausea. Right shoulder pain. This is an 78-year-old female who is postop day #5 status post direct anterior total right hip arthroplasty for subacute femoral neck fracture. The patient is stable from an orthopedic standpoint. She is continues to complain of some nausea this morning but states that it is improved slightly. She has had no vom iting or diarrhea. She has not had a bowel movement in a couple of days. Abdominal x-ray is negative for ileus or bowel obstruction. Her pain is fairly well-controlled today. She is currently getting up with physical therapy. Per nursing, she is not completely independent with ambulation and is requiring some assistance. She is also complaining of right shoulder pain since the fall. Shoulder x-rays taken yesterday reveal no acute bony abnormality. Minimal arthritic change. No fracture noted. Objective - Vital Signs Vital signs: Vital Signs Temp 98.8 F 11/01/23 07:55 Pulse 82 11/01/23 08:49 Resp 18 11/01/23 08:49 BP 110/65 11/01/23 07:55 Pulse Ox 95 11/01/23 07:55 FiO2 Intake & Output 10/31/23 11/01/23 11/01/23 18:59 06:59 18:59 Other: Voiding Method Toilet # Voids 2 3 - Exam This is a pleasant 78-year-old female in no acute distress. She is alert and oriented x 3. She is up and ambulating with physical therapy. Exam of the right shoulder reveals no obvious deformity or swelling. She has active forward flexion to about 110 degrees. There is mild pain with motion of the shoulder. Exam of the right lower extremity reveals that her hip dressing is clean, dry and intact. She has full foot and ankle motion bilaterally without difficulty or pain. She is unable to raise the leg independently. Calf is nontender with palpation. Neurovascular status to the lower extremity is intact. - Labs CBC & Chem 7: 11/01/23 05:41 11/01/23 05:41 Labs: Abnormal Lab Results - Last 24 Hours (Table) 10/31/23 10/31/23 11/01/23 Range/Units 06:02 06:02 05:41 RBC 2.63 L (4.10-5.20) X 10*6/uL Hgb 7.9 L (12.0-15.0) g/dL Hct 24.8 L (37.2-46.3) % MCHC 31.9 L (32.0-37.0) g/dL BUN (9.0-27.0) mg/dL Iron 25 L (50-170) UG/DL TIBC 182 L (228-460) UG/DL Transferrin 130.0 L (204.0-354.0) mg/dL ALT 6 L (8-44) U/L Total Protein 5.1 L (6.2-8.2) g/dL Albumin 3.0 L (3.8-4.9) g/dL Albumin/Globulin Ratio 1.43 L (1.60-3.17) Ratio 11/01/23 Range/Units 05:41 RBC (4.10-5.20) X 10*6/uL Hgb (12.0-15.0) g/dL Hct (37.2-46.3) % MCHC (32.0-37.0) g/dL BUN 8.4 L (9.0-27.0) mg/dL Iron (50-170) UG/DL TIBC (228-460) UG/DL Transferrin (204.0-354.0) mg/dL ALT (8-44) U/L Total Protein 5.4 L (6.2-8.2) g/dL Albumin 3.2 L (3.8-4.9) g/dL Albumin/Globulin Ratio 1.45 L (1.60-3.17) Ratio Assessment and Plan (1) Status post total replacement of right hip Current Visit: Yes Status: Acute Code(s): Z96.641 - PRESENCE OF RIGHT ARTIFICIAL HIP JOINT SNOMED Code(s): 422325234935 (2) Status post fracture of right hip Current Visit: Yes Status: Acute Code(s): Z87.81 - PERSONAL HISTORY OF (HEALED) TRAUMATIC FRACTURE SNOMED Code(s): 025919769 (3) Right hip pain Current Visit: Yes Status: Acute Code(s): M25.551 - PAIN IN RIGHT HIP SNOMED Code(s): 74641969 Plan: The clinical findings are discussed with the patient. Her x-ray results are discussed. We will try to decrease the amount of pain medication she is re quiring since the narcotic may be upsetting her stomach. We will continue care and physical therapy. Reevaluation tomorrow with possible discharge home with home care.
[2023-11-02 08:44] LABS: Basophils # (A) 0.02 X 10*3/uL (0.00-0.10); Basophils % (A) 0.4 %; Eosinophils # (A) 0.24 X 10*3/uL (0.04-0.35); Eosinophils % (A) 5.1 %; HCT 24.8 % (37.2-46.3); HGB 7.7 g/dL (12.0-15.0); Lymphocytes # (A) 1.27 X 10*3/uL (0.90-5.00); MCH 29.1 pg (27.0-32.0); MCV 93.6 FL (80.0-97.0); Mean Platelet Volume 10.1 FL (9.5-12.2); Monocytes # (A) 0.64 X 10*3/uL (0.20-1.00); Monocytes % (A) 13.6 %; NRBC Per 100 WBC 0.02 X 10*3/uL (0.00-0.01); Neutrophils # (A) 2.49 X 10*3/uL (1.80-7.70); Neutrophils % (A) 52.8 %; Platelet Count 255 X 10*3/uL (140-440); RBC 2.65 X 10*6/uL (4.10-5.20); RDW 12.5 % (11.5-14.5); WBC 4.71 X 10*3/uL (4.50-10.00)
[2023-11-02 09:01] LABS: ALT 7 U/L (8-44); AST 18 U/L (13-35); Albumin 3.3 g/dL (3.8-4.9); Albumin/Globulin Ratio 1.57 Ratio (1.60-3.17); Alkaline Phosphatase 51 U/L (41-126); BUN/Creat Ratio 13.29 Ratio (12.00-20.00); Blood Urea Nitrogen 9.3 mg/dL (9.0-27.0); Calcium 8.7 mg/dL (8.7-10.3); Carbon Dioxide 26.8 mmol/L (21.6-31.8); Chloride 104 mmol/L (96-109); Globulin 2.1 g/dL (1.6-3.3); Glucose 97 mg/dL (70-110); Sodium 140 mmol/L (135-145); Total Bilirubin 0.5 mg/dL (0.3-1.2); Total Protein 5.4 g/dL (6.2-8.2)
[2023-11-02] MEDS: PRAVASTATIN SODIUM 20 MG TAB PO SCH (09:22)
--- NOTE | 2023-11-02 10:54 | P.PN ---
Subjective Progress Note Date: 11/02/23 Bruna Clark is an 78-year-old female patient who sustained a fall approximately 1 month ago initially presented to ER for x-rays were read as normal she was discharged home she had increasing pain and difficulty which prompted her to go to orthopedic office and was found to have a displaced subcapital femoral neck fracture. Patient was advised the ER for further evaluation. Patient has past medical history of asthma, chest pain, GERD, hyperlipidemia and osteoarthritis patient denies any cardiac history denies any history of blood clots. chest x- ray completed showing no acute cardiopulmonary disease process COPD changes. lab work revealing hemoglobin of 2.2, white blood cell 5.3 creatinine 0.67 and bun 14. Current vital signs temp 97.9, heart 61, blood pressure 135/70with pulse ox 98% on room air. At this time patient is resting comfortably in bed complaining of right hip pain. Patient denies chest pain or shortness of breath. Patient denies nausea vomiting or diarrhea. Patient denies any urinary burning or frequency. on 10/28/2023 patient was seen and examined on the medical floor she is alert and oriented 3 in no apparent distress there is no fever or chills no headache or dizziness no chest pain no shortness of breath no cough no nausea or vomiting no abdominal pain no diarrhea and no urinary symptoms On 10/29/2023 patient is alert and oriented 3 patient currently sitting up in chair. Patient complaining of right hip pain. Denies chest pain or shortness breath. Patient denies diarrhea. Patient denies any urinary burning or frequency.Current vital signs temp 98.6, heart rate 89, respiratory rate 18, blood pressure 127/69 with a pulse ox of 94% on room air. Discharge planning to [facility] [place]. on 10/30/2023 patient was seen and examined on the medical floor she is alert and oriented 3 in no apparent distress she is complaining of nausea, and is complaining of right hip pain otherwise she denies any complaints there is no fever or chills no headache or dizziness no chest pain no shortness of breath no cough no abdominal pain no diarrhea no blood in the stools no burning with urination no frequency or urgency and no hematuria On 10/31/2023 patient is alert and oriented x 3. Patient complaining of increased nausea and vomiting today. Possibly secondary to doxycycline and pain meds. Will order IV Compazine as needed. Patient denies chest pain. Patient is having bowel movements. Patient denies any urinary burning or frequency Hemoglobin low at 7.6 will order iron studies on 11/01/2023 patient was seen and examined on the medical floor she is alert and oriented 3 in no apparent distress she is still complaining of right hip pain, she is stating her nausea has improved, otherwise she denies any complaints, there is no fever or chills no headache or dizziness no chest pain no shortness of breath no cough no vomiting no abdominal pain no diarrhea no blood in the stools no burning with urination no frequency or urgency and no hematuria. Patient continues to improve gradually, medication and labs were reviewed continue with current management. 11/02/2023 patient's alert and oriented 3. Patient still complaining about right hip pain and some nausea with pain medication.hemoglobin 7.7. Current vital signs temp 98.1, heart rate 75, respiratory rate 18, blood pressure 123/62 with pulse ox 97% on room air. Objective - Vital Signs Vital signs: Vital Signs Temp 98.1 F 11/02/23 08:06 Pulse 75 11/02/23 08:06 Resp 19 11/02/23 08:06 BP 123/62 11/02/23 08:06 Pulse Ox 97 11/02/23 08:06 FiO2 Intake & Output 11/01/23 11/02/23 11/02/23 18:59 06:59 18:59 Other: Voiding Method Toilet # Voids 4 1 - Exam In general patient is alert and oriented x 3 in no distress HEENT head normocephalic and atraumatic Neck is supple no JVD no goiter no lymphadenopathy no carotid bruit Chest examination is clear to auscultation no crackles no wheezing Cardiac exam reveals regular heart sounds S1 and S2 no gallops no murmurs Abdomen is soft nontender no organomegaly with normal bowel sounds Extremity exam reveals no edema no cyanosis or clubbing Neurological examination reveals no gross focal deficits - Labs CBC & Chem 7: 11/02/23 05:34 11/02/23 05:34 Labs: Abnormal Lab Results - Last 24 Hours (Table) 11/02/23 11/02/23 Range/Units 05:34 05:34 RBC 2.65 L (4.10-5.20) X 10*6/uL Hgb 7.7 L (12.0-15.0) g/dL Hct 24.8 L (37.2-46.3) % MCHC 31.0 L (32.0-37.0) g/dL Immature Gran # 0.05 H (0.00-0.04) X 10*3/uL NRBC/100 WBC Diff 0.02 H (0.00-0.01) X 10*3/uL ALT 7 L (8-44) U/L Total Protein 5.4 L (6.2-8.2) g/dL Albumin 3.3 L (3.8-4.9) g/dL Albumin/Globulin Ratio 1.57 L (1.60-3.17) Ratio Assessment and Plan Assessment: 1.fall with subacute displaced right subcapital femur neck fracture. Status post surgical intervention 10/27/2023 2. History of fall one month ago 3. History of asthma 4. History of GERD 5. History of hyperlipidemia 6. History of varicose veins 7. History of appendectomy Thank you for this consultation we'll continue follow patient closely throughout stay Repeat labs ordered for a.m.
[2023-11-02 11:48] VITALS: BMI 20.3
--- NOTE | 2023-11-02 12:15 | P.PN ---
Subjective Patient is doing well overall. She complains of discomfort in her hip and nausea when taking pain medications but is otherwise doing well. She is artery been up and worked with physical therapy and gotten up to a chair this morning. Objective - Vital Signs Vital signs: Vital Signs Temp 98.1 F 11/02/23 08:06 Pulse 75 11/02/23 08:06 Resp 19 11/02/23 08:06 BP 123/62 11/02/23 08:06 Pulse Ox 97 11/02/23 08:06 FiO2 Intake & Output 11/01/23 11/02/23 11/02/23 18:59 06:59 18:59 Weight 58.967 kg Other: Voiding Method Toilet Toilet # Voids 4 1 - Exam Lang comfortably in bed. Alert and able to answer questions. Focused exam of the right hip was conducted. On inspection is a clean dressing with no drainage or strike through. Her thigh is soft and compressible. Femoral and sciatic ner ve function are intact - Labs CBC & Chem 7: 11/02/23 05:34 11/02/23 05:34 Labs: Abnormal Lab Results - Last 24 Hours (Table) 11/02/23 11/02/23 Range/Units 05:34 05:34 RBC 2.65 L (4.10-5.20) X 10*6/uL Hgb 7.7 L (12.0-15.0) g/dL Hct 24.8 L (37.2-46.3) % MCHC 31.0 L (32.0-37.0) g/dL Immature Gran # 0.05 H (0.00-0.04) X 10*3/uL NRBC/100 WBC Diff 0.02 H (0.00-0.01) X 10*3/uL ALT 7 L (8-44) U/L Total Protein 5.4 L (6.2-8.2) g/dL Albumin 3.3 L (3.8-4.9) g/dL Albumin/Globulin Ratio 1.57 L (1.60-3.17) Ratio Assessment and Plan Assessment: Postoperative day #6 status post right direct anterior total hip arthroplasty fo r displaced subcapital neck fracture Postoperative nausea Plan: Continue treatment as outlined. Due to the patient's pain and nausea we will keep her an additional day for continued pain medication as well as therapy. We'll plan for discharge home with home health tomorrow.
--- NOTE | 2023-11-03 10:58 | P.PN ---
Subjective Progress Note Date: 11/03/23 Bruna Clark is an 78-year-old female patient who sustained a fall approximately 1 month ago initially presented to ER for x-rays were read as normal she was discharged home she had increasing pain and difficulty which prompted her to go to orthopedic office and was found to have a displaced subcapital femoral neck fracture. Patient was advised the ER for further evaluation. Patient has past medical history of asthma, chest pain, GERD, hyperlipidemia and osteoarthritis patient denies any cardiac history denies any history of blood clots. chest x- ray completed showing no acute cardiopulmonary disease process COPD changes. lab work revealing hemoglobin of 2.2, white blood cell 5.3 creatinine 0.67 and bun 14. Current vital signs temp 97.9, heart 61, blood pressure 135/70with pulse ox 98% on room air. At this time patient is resting comfortably in bed complaining of right hip pain. Patient denies chest pain or shortness of breath. Patient denies nausea vomiting or diarrhea. Patient denies any urinary burning or frequency. on 10/28/2023 patient was seen and examined on the medical floor she is alert and oriented 3 in no apparent distress there is no fever or chills no headache or dizziness no chest pain no shortness of breath no cough no nausea or vomiting no abdominal pain no diarrhea and no urinary symptoms On 10/29/2023 patient is alert and oriented 3 patient currently sitting up in chair. Patient complaining of right hip pain. Denies chest pain or shortness breath. Patient denies diarrhea. Patient denies any urinary burning or frequency.Current vital signs temp 98.6, heart rate 89, respiratory rate 18, blood pressure 127/69 with a pulse ox of 94% on room air. Discharge planning to [facility] [place]. on 10/30/2023 patient was seen and examined on the medical floor she is alert and oriented 3 in no apparent distress she is complaining of nausea, and is complaining of right hip pain otherwise she denies any complaints there is no fever or chills no headache or dizziness no chest pain no shortness of breath no cough no abdominal pain no diarrhea no blood in the stools no burning with urination no frequency or urgency and no hematuria On 10/31/2023 patient is alert and oriented x 3. Patient complaining of increased nausea and vomiting today. Possibly secondary to doxycycline and pain meds. Will order IV Compazine as needed. Patient denies chest pain. Patient is having bowel movements. Patient denies any urinary burning or frequency Hemoglobin low at 7.6 will order iron studies on 11/01/2023 patient was seen and examined on the medical floor she is alert and oriented 3 in no apparent distress she is still complaining of right hip pain, she is stating her nausea has improved, otherwise she denies any complaints, there is no fever or chills no headache or dizziness no chest pain no shortness of breath no cough no vomiting no abdominal pain no diarrhea no blood in the stools no burning with urination no frequency or urgency and no hematuria. Patient continues to improve gradually, medication and labs were reviewed continue with current management. 11/02/2023 patient's alert and oriented 3. Patient still complaining about right hip pain and some nausea with pain medication.hemoglobin 7.7. Current vital signs temp 98.1, heart rate 75, respiratory rate 18, blood pressure 123/62 with pulse ox 97% on room air. On 11/03/2023 patient is alert and oriented 3. Patient planning about rash to her chest and back. Discussed with nursing staff to reach out to orthopedic services to DC doxycycline as possible cause.Patient reports she did have bowel movement yesterday. Current vital signs temp 97.9, heart rate 85, respiratory rate 17, blood pressure 118/61 with pulse ox 98% on room air Objective - Vital Signs Vital signs: Vital Signs Temp 97.9 F 11/03/23 07:54 Pulse 85 11/03/23 07:54 Resp 17 11/03/23 07:54 BP 118/61 11/03/23 07:54 Pulse Ox 98 11/03/23 07:54 FiO2 Intake & Output 11/02/23 11/03/23 11/03/23 18:59 06:59 18:59 Weight 58.967 kg Other: Voiding Method Toilet Toilet # Voids 1 - Exam In general patient is alert and oriented x 3 in no distress HEENT head normocephalic and atraumatic Neck is supple no JVD no goiter no lymphadenopathy no carotid bruit Chest examination is clear to auscultation no crackles no wheezing Cardiac exam reveals regular heart sounds S1 and S2 no gallops no murmurs Abdomen is soft nontender no organomegaly with normal bowel sounds Extremity exam reveals no edema no cyanosis or clubbing Neurological examination reveals no gross focal deficits - Labs CBC & Chem 7: 11/02/23 05:34 11/02/23 05:34 Assessment and Plan Assessment: 1.fall with subacute displaced right subcapital femur neck fracture. Status post surgical intervention 10/27/2023 2. History of fall one month ago 3. History of asthma 4. History of GERD 5. History of hyperlipidemia 6. History of varicose veins 7. History of appendectomy Thank you for this consultation we'll continue follow patient closely throughout stay Repeat labs ordered for a.m.
[2023-11-03 11:32] LABS: Basophils % (A) 0 %; Eosinophils # (A) 0.2 k/uL (0-0.7); Eosinophils % (A) 3 %; HCT 28.1 % (34.0-46.0); Hypochromasia Slight; Lymphocytes # (A) 0.9 k/uL (1.0-4.8); Lymphocytes % (A) 14 %; MCH 29.7 pg (25.0-35.0); MCHC 31.1 g/dL (31.0-37.0); MCV 95.5 fL (80.0-100.0); Monocytes # (A) 0.5 k/uL (0-1.0); Monocytes % (A) 8 %; Neutrophils # (A) 4.7 k/uL (1.3-7.7); Neutrophils % (A) 73 %; Platelet Count 327 k/uL (150-450); RBC 2.94 m/uL (3.80-5.40); RDW 12.9 % (11.5-15.5); WBC 6.5 k/uL (3.8-10.6)
[2023-11-03 11:35] LABS: HGB 8.7 gm/dL (11.4-16.0)
[2023-11-03] MEDS: diphenhydrAMINE 2% CREAM 28.4 GM TUBE TOPICAL SCH (12:54)
[2023-11-03 15:09] LABS: ALT 7 U/L (8-44); AST 20 U/L (13-35); Albumin 3.4 g/dL (3.8-4.9); Albumin/Globulin Ratio 1.36 Ratio (1.60-3.17); Alkaline Phosphatase 55 U/L (41-126); Calcium 9.3 mg/dL (8.7-10.3); Carbon Dioxide 25.6 mmol/L (21.6-31.8); Chloride 103 mmol/L (96-109); Globulin 2.5 g/dL (1.6-3.3); Glucose 89 mg/dL (70-110); Potassium 4.7 mmol/L (3.5-5.5); Sodium 139 mmol/L (135-145); Total Bilirubin 0.4 mg/dL (0.3-1.2); Total Protein 5.9 g/dL (6.2-8.2)
--- NOTE | 2023-11-04 07:58 | P.DS ---
Providers Date of admission: 10/26/23 21:51 Attending physician: Raymond Mayers Consults: 10/26/23 21:00 Consult Physician Urgent Consulting Provider: Nelson Torres Consult Reason/Comments: preop medical clearance Do you want consulting provider notified?: Yes Primary care physician: Nelson Melissa [facility] Course: The patient is a very pleasant 78-year-old female who was noted last week with a subacute right femoral neck fracture. She was taken to the operating room where an uncomplicated total hip replacement was performed. Following surgery she was transferred to the orthopedic floor. She received 2 doses of IV antibiotics and was then started on doxycycline. She was given aspirin for DVT prophylaxis. She worked with physical therapy and did well. Internal medicine was consulted and assisted with perioperative medical management. The patient had issues with nausea and constipation requiring several extra days of hospitalization. The patient ultimately did well and was cleared by physical therapy for discharge home with home health services. Patient Condition at Discharge: Good Plan - Discharge Summary Discharge Rx Participant: Yes New Discharge Prescriptions: New Aspirin 81 mg PO BID #60 tab Doxycycline Monohydrate 100 mg PO BID #30 cap Docusate [Colace] 100 mg PO BID #30 capsule HYDROcodone/APAP 10-325MG [[place] 10-325] 1 tab PO Q6HR PRN 3 Days #32 tab PRN Reason: Pain No Action Pravastatin Sodium [Pravachol] 20 mg PO DAILY Ergocalciferol [Vitamin D2 (1250 Mcg = 20162 Iu)] 1,250 mcg PO WEEKLY Albuterol Inhaler [Ventolin Hfa Inhaler] 2 puff INHALATION RT-Q4H PRN PRN Reason: Shortness Of Breath HYDROcodone/APAP 10-325MG [[place] 10-325] 1 tab PO Q6HR PRN PRN Reason: Pain Fluticasone Nasal [place] [Flonase Nasal Bellerose] 1 - 2 spray EA NOSTRIL DAILY PRN PRN Reason: Congestion Ibuprofen [Motrin Ib] 600 mg PO Q8H Discharge Medication List Pravastatin Sodium [Pravachol] 20 mg PO DAILY 01/06/22 [History] Albuterol Inhaler [Ventolin Hfa Inhaler] 2 puff INHALATION RT-Q4H PRN 10/27/23 [History] Aspirin 81 mg PO BID #60 tab 10/27/23 [Rx] Docusate [Colace] 100 mg PO BID #30 capsule 10/27/23 [Rx] Doxycycline Monohydrate 100 mg PO BID #30 cap 10/27/23 [Rx] Ergocalciferol [Vitamin D2 (1250 Mcg = 05970 Iu)] 1,250 mcg PO WEEKLY 10/27/23 [History] Fluticasone Nasal Bellerose [Flonase Nasal Bellerose] 1 - 2 spray EA NOSTRIL DAILY PRN 10/27/23 [History] HYDROcodone/APAP 10-325MG [[place] 10-325] 1 tab PO Q6HR PRN 10/27/23 [History] HYDROcodone/APAP 10-325MG [[place] 10-325] 1 tab PO Q6HR PRN 3 Days #32 tab 10/27/23 [Rx] Ibuprofen [Motrin Ib] 600 mg PO Q8H 10/27/23 [History] Follow up Appointment(s)/Referral(s): [facility], [NON-STAFF] - 1-2 Days ([facility] will call you to schedule your in home nursing, physical therapy, and occupational therapy visits. ) Nelson Torres MD [Primary Care Provider] - 1-2 days Raymond Mayers MD [Medical Doctor] - 2 Weeks Activity/Diet/Wound Care/Special Instructions: 1. Weight-bear as tolerated on your operative extremity unless instructed otherwise. Use a walker or other assistive device to ambulate. 2. Leave surgical dressing in place. If your dressing becomes saturated with blood, there is drainage, or the dressing becomes loose please contact the office. 3. It is okay to shower with your surgical dressing, but do not submerge in water (no hot tubs, bath's, swimming etc.) 4. Make sure to take her blood clot prevention medication as prescribed (aspirin, Eliquis, Xarelto, and Plavix are commonly prescribed medications for blood clot prevention) 5. While taking [place] or Percocet for pain make sure you're taking a stool softener (Colace) and drink lots of water. 6. Keep all follow-up appointments as scheduled. You will usually be seen in 1-2 weeks following surgery. 7. Please contact the office with any questions or concerns [phone] Discharge/Stand Alone Forms: Help In The Home Discharge Disposition: HOME WITH HOME HEALTH SERVICES
[2023-11-04 08:35] LABS: Basophils # (A) 0.03 X 10*3/uL (0.00-0.10); Basophils % (A) 0.4 %; Eosinophils # (A) 0.23 X 10*3/uL (0.04-0.35); Eosinophils % (A) 3.4 %; HCT 25.1 % (37.2-46.3); HGB 7.8 g/dL (12.0-15.0); Lymphocytes # (A) 0.91 X 10*3/uL (0.90-5.00); Lymphocytes % (A) 13.4 %; MCH 29.1 pg (27.0-32.0); MCHC 31.1 g/dL (32.0-37.0); MCV 93.7 FL (80.0-97.0); Mean Platelet Volume 9.8 FL (9.5-12.2); Monocytes # (A) 0.55 X 10*3/uL (0.20-1.00); Monocytes % (A) 8.1 %; NRBC Per 100 WBC 0 X 10*3/uL (0.00-0.01); Neutrophils % (A) 73.8 %; Platelet Count 320 X 10*3/uL (140-440); RBC 2.68 X 10*6/uL (4.10-5.20); RDW 12.9 % (11.5-14.5); WBC 6.78 X 10*3/uL (4.50-10.00)
[2023-11-04 09:01] LABS: ALT 9 U/L (8-44); AST 18 U/L (13-35); Albumin 3.2 g/dL (3.8-4.9); Albumin/Globulin Ratio 1.45 Ratio (1.60-3.17); Alkaline Phosphatase 52 U/L (41-126); BUN/Creat Ratio 12.83 Ratio (12.00-20.00); Blood Urea Nitrogen 7.7 mg/dL (9.0-27.0); Calcium 8.9 mg/dL (8.7-10.3); Chloride 104 mmol/L (96-109); Globulin 2.2 g/dL (1.6-3.3); Glucose 100 mg/dL (70-110); Potassium 3.9 mmol/L (3.5-5.5); Sodium 139 mmol/L (135-145); Total Bilirubin 0.4 mg/dL (0.3-1.2); Total Protein 5.4 g/dL (6.2-8.2)
--- NOTE | 2023-11-04 14:13 | P.PN ---
Subjective Progress Note Date: 11/04/23 Bruna Clark is an 78-year-old female patient who sustained a fall approximately 1 month ago initially presented to ER for x-rays were read as normal she was discharged home she had increasing pain and difficulty which prompted her to go to orthopedic office and was found to have a displaced subcapital femoral neck fracture. Patient was advised the ER for further evaluation. Patient has past medical history of asthma, chest pain, GERD, hyperlipidemia and osteoarthritis patient denies any cardiac history denies any history of blood clots. chest x- ray completed showing no acute cardiopulmonary disease process COPD changes. lab work revealing hemoglobin of 2.2, white blood cell 5.3 creatinine 0.67 and bun 14. Current vital signs temp 97.9, heart 61, blood pressure 135/70with pulse ox 98% on room air. At this time patient is resting comfortably in bed complaining of right hip pain. Patient denies chest pain or shortness of breath. Patient denies nausea vomiting or diarrhea. Patient denies any urinary burning or frequency. on 10/28/2023 patient was seen and examined on the medical floor she is alert and oriented 3 in no apparent distress there is no fever or chills no headache or dizziness no chest pain no shortness of breath no cough no nausea or vomiting no abdominal pain no diarrhea and no urinary symptoms On 10/29/2023 patient is alert and oriented 3 patient currently sitting up in chair. Patient complaining of right hip pain. Denies chest pain or shortness breath. Patient denies diarrhea. Patient denies any urinary burning or frequency.Current vital signs temp 98.6, heart rate 89, respiratory rate 18, blood pressure 127/69 with a pulse ox of 94% on room air. Discharge planning to [facility] [place]. on 10/30/2023 patient was seen and examined on the medical floor she is alert and oriented 3 in no apparent distress she is complaining of nausea, and is complaining of right hip pain otherwise she denies any complaints there is no fever or chills no headache or dizziness no chest pain no shortness of breath no cough no abdominal pain no diarrhea no blood in the stools no burning with urination no frequency or urgency and no hematuria On 10/31/2023 patient is alert and oriented x 3. Patient complaining of increased nausea and vomiting today. Possibly secondary to doxycycline and pain meds. Will order IV Compazine as needed. Patient denies chest pain. Patient is having bowel movements. Patient denies any urinary burning or frequency Hemoglobin low at 7.6 will order iron studies on 11/01/2023 patient was seen and examined on the medical floor she is alert and oriented 3 in no apparent distress she is still complaining of right hip pain, she is stating her nausea has improved, otherwise she denies any complaints, there is no fever or chills no headache or dizziness no chest pain no shortness of breath no cough no vomiting no abdominal pain no diarrhea no blood in the stools no burning with urination no frequency or urgency and no hematuria. Patient continues to improve gradually, medication and labs were reviewed continue with current management. 11/02/2023 patient's alert and oriented 3. Patient still complaining about right hip pain and some nausea with pain medication.hemoglobin 7.7. Current vital signs temp 98.1, heart rate 75, respiratory rate 18, blood pressure 123/62 with pulse ox 97% on room air. On 11/03/2023 patient is alert and oriented 3. Patient planning about rash to her chest and back. Discussed with nursing staff to reach out to orthopedic services to DC doxycycline as possible cause.Patient reports she did have bowel movement yesterday. Current vital signs temp 97.9, heart rate 85, respiratory rate 17, blood pressure 118/61 with pulse ox 98% on room air on 11/04/2023 patient was seen and examined on the medical floor she is alert and oriented 3 in no apparent distress she is complaining of mild nausea, and is complaining of right hip pain otherwise she denies any complaints there is no fever or chills no headache or dizziness no chest pain no shortness of breath no cough no abdominal pain no diarrhea no blood in the stools no burning with urination no frequency or urgency and no hematuria. patient will be discharged to home today, follow up in the office within 1 week. Objective - Vital Signs Vital signs: Vital Signs Temp 97.6 F 11/04/23 07:32 Pulse 67 11/04/23 07:32 Resp 17 11/04/23 07:32 BP 119/66 11/04/23 07:32 Pulse Ox 96 11/04/23 07:32 FiO2 Intake & Output 11/03/23 11/04/23 11/04/23 18:59 06:59 18:59 Other: Voiding Method Toilet # Voids 5 2 # Bowel Movements 1 - Exam In general patient is alert and oriented x 3 in no distress HEENT head normocephalic and atraumatic Neck is supple no JVD no goiter no lymphadenopathy no carotid bruit Chest examination is clear to auscultation no crackles no wheezing Cardiac exam reveals regular heart sounds S1 and S2 no gallops no murmurs Abdomen is soft nontender no organomegaly with normal bowel sounds Extremity exam reveals no edema no cyanosis or clubbing Neurological examination reveals no gross focal deficits - Labs CBC & Chem 7: 11/04/23 04:53 11/04/23 04:53 Labs: Abnormal Lab Results - Last 24 Hours (Table) 11/03/23 11/04/23 11/04/23 Range/Units 10:45 04:53 04:53 RBC 2.68 L (4.10-5.20) X 10*6/uL Hgb 7.8 L (12.0-15.0) g/dL Hct 25.1 L (37.2-46.3) % MCHC 31.1 L (32.0-37.0) g/dL Immature Gran # 0.06 H (0.00-0.04) X 10*3/uL BUN 7.7 L (9.0-27.0) mg/dL ALT 7 L (8-44) U/L Total Protein 5.9 L 5.4 L (6.2-8.2) g/dL Albumin 3.4 L 3.2 L (3.8-4.9) g/dL Albumin/Globulin Ratio 1.36 L 1.45 L (1.60-3.17) Ratio Assessment and Plan Assessment: 1.fall with subacute displaced right subcapital femur neck fracture. Status post surgical intervention 10/27/2023 2. History of fall one month ago 3. History of asthma 4. History of GERD 5. History of hyperlipidemia 6. History of varicose veins 7. History of appendectomy Thank you for this consultation we'll continue follow patient closely throughout stay Repeat labs ordered for a.m.
[2023-11-04 14:51] VITALS: BP 107/62; PULSE 77; RESP 16; TEMP 97.4
[2023-11-08] MEDS ORDERED: ERGOCALCIFEROL 1,250 MCG (50,000 IU) CAPSULE PO SCH (09:00)
== END 2023-11-04 17:46 | disposition home health service (06) | DRG 522 ==
LOC: EC 19:16 → 4SSUR 21:51
PROVIDERS: ADMIT Orthopaedic Surgery; ATTEND Orthopaedic Surgery
PROC: 3E0T3BZ Introduction of Anesthetic Agent into Peripheral Nerves and Plexi, Percutaneous Approach (ICD-10-PCS; 2023-10-27)
PROC: 0SR9019 Replacement of Right Hip Joint with Metal Synthetic Substitute, Cemented, Open Approach (ICD-10-PCS; principal; 2023-10-27 08:35)
DX: S72.011A Unspecified intracapsular fracture of right femur, initial encounter for closed fracture (principal); M19.90 Unspecified osteoarthritis, unspecified site; E78.5 Hyperlipidemia, unspecified; K21.9 Gastro-esophageal reflux disease without esophagitis; I20.9 Angina pectoris, unspecified; J44.9 Chronic obstructive pulmonary disease, unspecified; K57.30 Diverticulosis of large intestine without perforation or abscess without bleeding; Z88.0 Allergy status to penicillin; Z88.5 Allergy status to narcotic agent; M25.511 Pain in right shoulder; K59.00 Constipation, unspecified; I83.93 Asymptomatic varicose veins of bilateral lower extremities; Z79.899 Other long term (current) drug therapy; Z90.49 Acquired absence of other specified parts of digestive tract; Z90.710 Acquired absence of both cervix and uterus; Z86.14 Personal history of Methicillin resistant Staphylococcus aureus infection
CPT/HCPCS: 64447; 71046; 73501; 74019; 80053; 82607; 83036; 83540; 83550; 85025; 85610; 85730; 86850; 86900; 86901; 93005; 99284

== ENCOUNTER → 2024-01-20 | Outpatient (CLI) | payer MEDICARE, OTHER | END | disposition home or self-care (01) | LOC: LABWHC1 11:18 | DX: S72.06 Articular fracture of head of femur (principal); M25.551 Pain in right hip; Z47.1 Aftercare following joint replacement surgery; Z96.641 Presence of right artificial hip joint; X58.XXXD Exposure to other specified factors, subsequent encounter | CPT/HCPCS: 36415; 85379; 85652; 86140 ==

== ENCOUNTER → 2024-02-25 | Outpatient (CLI) | payer MEDICARE, OTHER | END | disposition home or self-care (01) | LOC: LABWHC1 16:00 | PROVIDERS: ATTEND Orthopaedic Surgery | DX: S72.06 Articular fracture of head of femur (principal); M54.16 Radiculopathy, lumbar region; X58.XXXD Exposure to other specified factors, subsequent encounter; Z47.1 Aftercare following joint replacement surgery; Z96.641 Presence of right artificial hip joint | CPT/HCPCS: 36415; 85652; 86140 ==

== ENCOUNTER 2024-04-04 07:46 | Emergency (ER) | payer MEDICARE, OTHER ==
[2024-04-04 07:59] VITALS: PULSE 85; RESP 18
--- NOTE | 2024-04-04 08:21 | ED ---
General Adult HPI - General Chief complaint: Fall Stated complaint: fall Time Seen by Provider: 04/04/24 07:47 Source: patient Mode of arrival: ambulatory Limitations: no limitations - History of Present Illness Initial comments: Dictation was produced using [employer] dictation software. please excuse any grammatical, word or spelling errors. Chief Complaint: 78-year-old female presents to the ER with right-sided rib pain and right shoulder pain History of Present Illness: Patient is an 78-year-old female she tripped this morning landed on her right side. Patient complaining of right-sided rib pain and right shoulder pain. Patient suffers from frequent falls. States that she was walking around in the morning when of slightly dark when she tripped over a pipe that the landlord had placed not replaced. Denies any head injury. No neck pain. Denies any head trauma. Does not take any anticoagulation medications. The ROS documented in this emergency department record has been reviewed and confirmed by me. Those systems with pertinent positive or negative responses have been documented in the HPI. All other systems are other negative and/or noncontributory. - Related Data Home Medications Medication Instructions Recorded Confirmed Pravastatin Sodium [Pravachol] 20 mg PO DAILY 01/06/22 10/27/23 Albuterol Inhaler [Ventolin Hfa 2 puff INHALATION RT-Q4H PRN 10/27/23 10/27/23 Inhaler] Ergocalciferol [Vitamin D2 (1250 1,250 mcg PO WEEKLY 10/27/23 10/27/23 Mcg = 99290 Iu)] Fluticasone Nasal [place] [Flonase 1 - 2 spray EA NOSTRIL DAILY PRN 10/27/23 10/27/23 Nasal [place]] HYDROcodone/APAP 10-325MG [[place]yer 1 tab PO Q6HR PRN 10/27/23 10/27/23 10-325] Ibuprofen [Motrin Ib] 600 mg PO Q8H 10/27/23 10/27/23 Previous Rx's Medication Instructions Recorded Aspirin 81 mg PO BID #60 tab 10/27/23 Docusate [Colace] 100 mg PO BID #30 capsule 10/27/23 Doxycycline Monohydrate 100 mg PO BID #30 cap 10/27/23 HYDROcodone/APAP 10-325MG [[place] 1 tab PO Q6HR PRN 3 Days #32 tab 10/27/23 19-621] Allergies Allergy/AdvReac Type Severity Reaction Status Date / Time Penicillins Allergy Intermediate Rash/Hives Verified 04/04/24 07:59 morphine AdvReac Nausea & Verified 04/04/24 07:59 Vomiting Review of Systems ROS Statement: Those systems with pertinent positive or pertinent negative responses have been documented in the HPI. ROS Other: All systems not noted in ROS Statement are negative. Past Medical History Past Medical History: Asthma, Chest Pain / Angina, GERD/Reflux, Hyperlipidemia, Osteoarthritis (OA) Additional Past Medical History / Comment(s): Varicose Veins History of Any Multi-Drug Resistant Organisms: MRSA Date of last positivie culture/infection: 04/18/22 MDRO Source:: Left Ankle Past Surgical History: Appendectomy, Hysterectomy, Orthopedic Surgery Additional Past Surgical History / Comment(s): hysterectomy in her 30's., left ankle repair, right hip replacement, Past Anesthesia/Blood Transfusion Reactions: No Reported Reaction Past Psychological History: No Psychological Hx Reported Smoking Status: Former smoker Past Alcohol Use History: None Reported Past Drug Use History: None Reported - Past Family History Father Family Medical History: Cancer Additional Family Medical History / Comment(s): Father age 72 of colon CA. Mother Family Medical History: No Reported History Additional Family Medical History / Comment(s): Mother in her 70's after hip fx. Sister(s) Family Medical History: Cancer General Exam - General Exam Comments Initial Comments: PHYSICAL EXAM: General Impression: Alert and oriented x3, not in acute distress HEENT: Normocephalic atraumatic, extra-ocular movements intact, pupils equal and reactive to light bilaterally, mucous membranes moist. Cardiovascular: Heart regular rate and rhythm Chest: Able to complete full sentences, no retractions, no tachypnea Abdomen: abdomen soft, non-tender, non-distended, no organomegaly Musculoskeletal: Pulses present and equal in all extremities, no peripheral edema, palpatory tenderness to the right lateral thorax. Palpatory tenderness to the right shoulder however passive range of motion intact without significant antalgia Motor: no focal deficits noted Neurological: CN II-XII grossly intact, no focal motor or sensory deficits noted Skin: Intact with no visualized rashes Psych: Normal affect and mood Limitations: no limitations Course Vital Signs 04/04/24 07:55 Temperature 98.0 F Pulse Rate 85 Respiratory 18 Rate Blood Pressure 139/76 O2 Sat by Pulse 98 Oximetry Medical Decision Making - Medical Decision Making Was pt. sent in by a medical professional or institution (, PA, DATA PROCESSING SPECIALIST, urgent care, hospital, or [place] [facility] care facility...) When possible be specific @ -No Did you speak to anyone other than the patient for history (EMS, parent, family, police, friend...)? What history was obtained from this source @ -No Did you review nursing and triage notes (agree or disagree)? Why? @ -I reviewed and agree with nursing and triage notes Were old charts reviewed (outside hosp., previous admission, EMS record, old EKG, old radiological studies, urgent care reports/EKG's, [place] health [facility] facility records)? Report findings @ -No old charts were reviewed Differential Diagnosis (chest pain, altered mental status, abdominal pain women, abdominal pain men, vaginal bleeding, musculoskeletal, weakness, fever, dyspnea, syncope, headache, dizziness, GI bleed, back pain, seizure, CVA, palpatations, mental health)? @ -Rib fracture, pneumothorax, pulmonary contusion EKG interpreted by me (3pts min.). @ -None done X-rays interpreted by me (1pt min.). @ -Right shoulder x-ray negative for acute processes CT interpreted by me (1pt min.). @ -CT chest shows no thoracic acute processes traumatic U/S interpreted by me (1pt. min.). @ -None done What testing was considered but not performed or refused? (CT, X-rays, U/S, labs)? Why? @ -None What meds were considered but not given or refused? Why? @ -None Was smoking cessation discussed for >3mins.? @ -No Were there social determinants of health that impacted care today? How? (Homelessness, low income, unemployed, alcoholism, drug addiction, transportation, low edu. Level, literacy, decrease access to med. care, senior living, rehab)? @ -No Was there de-escalation of care discussed even if they declined (Discuss DNR or withdrawal of care, Hospice)? DNR status @ -No What co-morbidities impacted this encounter? (DM, HTN, Smoking, COPD, CAD, Cancer, CVA, ARF, Chemo, Hep., AIDS, mental health diagnosis, sleep apnea, morbid obesity)? @ -None Was patient admitted / discharged? Hospital course, mention meds given and route, prescriptions, significant lab abnormalities, going to OR and other pertinent info. @ -78-year-old female presents to the emergency department with chest pain and right shoulder pain after fall. She has palpatory tenderness to the right ribs. Vital signs stable. CT of the chest shows no fractures. Right shoulder x-ray shows no acute processes. Clinical presentation consistent with chest contusion and right shoulder strain. Patient discharged Did you discuss the management of the patient with other professionals (professionals i.e. , PA, DATA PROCESSING SPECIALIST, lab, RT, psych nurse, social welfare clerk, senior tech manufacturing engineering, teacher, loan review officer, director of casework)? Give summary @ -No Was critical care preformed (if so, how long)? @ -No Undiagnosed new problem with uncertain prognosis? @ -No Drug Therapy requiring intensive monitoring for toxicity (Heparin, Nitro, Insulin, Cardizem)? @ -No Were any procedures done? @ -No Diagnosis/symptom? Acute, or Chronic, or Acute on Chronic? Uncomplicated (without systemic symptoms) or Complicated (systemic symptoms)? @ -Chest contusion, right shoulder strain Side effects of treatment? @ -No Exacerbation, Progression, or Severe Exacerbation? @ -No Poses a threat to life or bodily function? How? (Chest pain, [place], [place], pneumonia, PE, COPD, DKA, ARF, appy, cholecystitis, CVA, Diverticulitis, Homicidal, Suicidal, threat to staff... and all critical care pts) @ -No Disposition Clinical Impression: Fall Disposition: HOME SELF-CARE Condition: Good Instructions (If sedation given, give patient instructions): Fall Prevention for Older Adults (ED) Is patient prescribed a controlled substance at d/c from ED?: No Referrals: Nelson Torres MD [Primary Care Provider] - 1-2 days Time of Disposition: 09:55
--- NOTE | 2024-04-04 09:30 | CT ---
EXAMINATION TYPE: CT chest wo con DATE OF EXAM: 04/04/2024 COMPARISON: 11/08/2009 HISTORY: 78 year old female with PAIN AFTER FALL THIS AM TECHNIQUE: Contiguous axial scanning of the chest without IV contrast. Coronal/sagittal reconstructi ons performed. CT DLP: 388.6mGycm. Automatic exposure control utilized for a dose reduction. FINDINGS: Heart upper limits of normal in size. Extensive LAD and RCA coronary artery calcifications. Nodular thyroid gland with nodule measuring up to 1.4 cm on the left, unchanged. Aorta normal caliber with mild to moderate arch calcifications and bovine configuration to the aortic arch. No thoracic adenopathy or mediastinal hematoma. Biapical pleural parenchymal scarring. Minimal emphysematous change. Neoc-sl-mboipfwg bronchial wall thickening especially in the lower lungs. For millimeter smaller scattered pulmonary nodules in the l ower lungs remain unchanged suggesting a benign etiology. No consolidation, pneumothorax, or pleural effusion. Small to moderate sized hiatal hernia. Underlying hepatic cysts measuring up to 2.6 cm. There is a 3 mm nonobstructive left renal stone. Moderate atherosclerotic calcifications throughout the visualized abdominal aorta. More extensive within the infrarenal portion partially visualized where there may b e at least a moderate stenosis of the aorta. Bones: Accentuated midthoracic kyphosis with mild to moderate degenerative disc disease mid to lower thoracic spine. No acute fracture seen. IMPRESSION: 1. No acute traumatic signal identified within the chest. 2. Extensive LAD and RCA coronary artery calcifications. 3. COPD with mild emphysema. Small nodules measuring up to 4 mm at the lower lungs remain unchanged a nd benign. 4. Small to moderate-sized hiatal hernia. 5. Prominent atherosclerotic calcifications infrarenal abdominal and back pain after work view aorta. There may be a partially visualized at least moderate stenosis of the aorta here. [facility], , 04/04/2024 9:27 AM
--- NOTE | 2024-04-04 09:38 | XR ---
EXAMINATION TYPE: XR shoulder complete 3 views RT DATE OF EXAM: 04/04/2024 Comparison: 10/31/2023 Clinical History: 78-year-old female with pain after fall Findings: AC joint appears congruent and intact. Subacromial space is preserved. No acute fracture, subluxation , dislocation. Suspect some subclavian artery calcifications. Impression: No acute osseous abnormality seen. [facility], , 04/04/2024 9:36 AM
[2024-04-04 10:05] VITALS: BP 131/78; TEMP 98
== END 2024-04-04 12:27 | disposition home or self-care (01) ==
LOC: EC 07:46
CPT/HCPCS: 71250; 99284